=== PATIENT | male | born 1965 | race Caucasian/White ===

== ENCOUNTER 2020-09-01 11:42 | Outpatient (REF) | payer MEDICARE, MEDICAID, SELFPAY ==
[2020-09-01 14:15] LABS: MANUAL DIFF FLAG NO
[2020-09-01 14:20] LABS: Basophils Percent Auto 0.4 % (0-2); Eosinophils Absolute Auto 0.1 X10*3/uL (0.0-0.4); Hematocrit 40.7 % (42-52); Hemoglobin 13.3 g/dl (14.0-18.0); Imm Gran Abs Auto 0.01 X10*3/uL (0.00-0.03); Imm Gran Pct Auto 0.2 % (0.0-0.4); Lymphocytes Percent Auto 22.4 % (20-40); Mean Corpuscular HGB Conc 32.7 g/dl (31.0-36.0); Mean Corpuscular Hemoglobin 28.5 pg (27.0-33.0); Mean Corpuscular Volume 87.3 fL (80-98); Mean Platelet Volume 9.3 fL (9.4-12.4); Monocytes Absolute Auto 0.5 X10*3/uL (0.1-1.2); Monocytes Percent Auto 11.1 % (2-11); Neutrophils Absolute Auto 2.9 X10*3/uL (2.0-8.3); Neutrophils Percent Auto 63.9 % (45-73); Platelet Count 228 X10*3/uL (160-400); Red Blood Count 4.66 X10*6/uL (4.60-5.80); Red Cell Distribution Width 12.5 % (11.0-16.0); White Blood Count 4.5 X10*3/uL (4.8-10.8)
[2020-09-01 14:39] LABS: Alanine Aminotransferase 28 U/L (0-40); Albumin Level 4.4 g/dL (3.5-5.0); Alkaline Phosphatase 90 U/L (39-117); Anion Gap 12 (12-20); Aspartate Amino Transferase 19 U/L (5-37); Bilirubin Total 0.4 mg/dL (0.0-1.0); Blood Urea Nitrogen 18 mg/dL (9-16); Calcium 8.9 mg/dL (8.4-10.2); Carbon Dioxide 29 mmol/L (22-29); Chloride 105 mmol/L (96-108); Cholesterol 187 mg/dL; Estimated Glomerular Filt Rate > 60; Glucose Random 83 mg/dL (60-115); Potassium 4.5 mmol/l (3.3-5.1); Sodium 141 mmol/L (135-145); Total Protein 7.3 g/dL (6.5-8.0)
[2020-09-01 15:00] LABS: Prostate Specific Antigen Scr 0.95 ng/mL (<0.05-4.0)
== END 2020-09-01 11:43 | disposition home or self-care (01) ==
LOC: HO.10HDL 11:42
PROVIDERS: Visit Provider Internal Medicine
DX: K58.9 Irritable bowel syndrome, unspecified (principal); K57.90 Diverticulosis of intestine, part unspecified, without perforation or abscess without bleeding; R35.1 Nocturia; Z86.010 Personal history of colon polyps
CPT/HCPCS: 36415; 80053; 82465; 84153; 85025

== ENCOUNTER 2021-04-27 11:25 | Outpatient (REF) | payer MEDICARE, MEDICAID, SELFPAY ==
[2021-04-27 13:38] LABS: MANUAL DIFF FLAG NO
[2021-04-27 13:45] LABS: Basophils Percent Auto 0.4 % (0-2); Eosinophils Percent Auto 0.5 % (0-4); Hematocrit 39.1 % (42-52); Hemoglobin 13.1 g/dl (14.0-18.0); Imm Gran Abs Auto 0.02 X10*3/uL (0.00-0.03); Imm Gran Pct Auto 0.4 % (0.0-0.4); Lymphocytes Absolute Auto 0.8 X10*3/uL (1.2-4.9); Lymphocytes Percent Auto 14.8 % (20-40); Mean Corpuscular HGB Conc 33.5 g/dl (31.0-36.0); Mean Corpuscular Volume 86.7 fL (80-98); Mean Platelet Volume 9.3 fL (9.4-12.4); Monocytes Absolute Auto 0.5 X10*3/uL (0.1-1.2); Monocytes Percent Auto 9.2 % (2-11); Neutrophils Absolute Auto 4.3 X10*3/uL (2.0-8.3); Neutrophils Percent Auto 74.7 % (45-73); Platelet Count 194 X10*3/uL (160-400); Red Blood Count 4.51 X10*6/uL (4.60-5.80); Red Cell Distribution Width 12.5 % (11.0-16.0); White Blood Count 5.7 X10*3/uL (4.8-10.8)
[2021-04-27 14:08] LABS: Anion Gap 11 (12-20); Blood Urea Nitrogen 11 mg/dL (9-16); Calcium 9.8 mg/dL (8.4-10.2); Carbon Dioxide 30 mmol/L (22-29); Chloride 105 mmol/L (96-108); Estimated Glomerular Filt Rate > 60; Glucose Random 78 mg/dL (60-115); Iron 83 mcg/dL (45-160); Percent Iron Saturation 38 % (15-50); Potassium 4.4 mmol/L (3.3-5.1); Sodium 142 mmol/L (135-145); Total Iron Binding Capacity 216 mcg/dL (228-428); Unsaturated Iron Binding 133 ug/dL
== END 2021-04-27 11:26 | disposition home or self-care (01) ==
LOC: HO.10HDL 11:25
PROVIDERS: Visit Provider Internal Medicine
DX: D64.9 Anemia, unspecified (principal); K58.9 Irritable bowel syndrome, unspecified; K57.92 Diverticulitis of intestine, part unspecified, without perforation or abscess without bleeding
CPT/HCPCS: 36415; 80048; 83540; 85025

== ENCOUNTER 2021-11-09 10:10 | Outpatient (REF) | payer MEDICARE, MEDICAID, SELFPAY ==
[2021-11-09 10:35] LABS: MANUAL DIFF FLAG NO
[2021-11-09 10:49] LABS: Basophils Percent Auto 0.2 % (0-2); Eosinophils Absolute Auto 0.1 X10*3/uL (0.0-0.4); Hematocrit 41.7 % (42.0-52.0); Hemoglobin 13.8 g/dl (14.0-18.0); Imm Gran Abs Auto 0.01 X10*3/uL (0.00-0.03); Imm Gran Pct Auto 0.2 % (0.0-0.4); Lymphocytes Percent Auto 22.4 % (20-40); Mean Corpuscular HGB Conc 33.1 g/dl (31.0-36.0); Mean Corpuscular Hemoglobin 29.2 pg (27.0-33.0); Mean Corpuscular Volume 88.2 fL (80.0-98.0); Mean Platelet Volume 9.1 fL (9.4-12.4); Monocytes Absolute Auto 0.4 X10*3/uL (0.1-1.2); Monocytes Percent Auto 9.1 % (2-11); Neutrophils Percent Auto 66.1 % (45-73); Platelet Count 180 X10*3/uL (160-400); Red Blood Count 4.73 X10*6/uL (4.60-5.80); Red Cell Distribution Width 12.3 % (11.0-16.0); White Blood Count 4.6 X10*3/uL (4.8-10.8)
[2021-11-09 11:21] LABS: Alanine Aminotransferase 21 U/L (0-40); Albumin Level 4.2 g/dL (3.5-5.0); Alkaline Phosphatase 74 U/L (39-117); Anion Gap 11 (12-20); Aspartate Amino Transferase 17 U/L (5-37); Bilirubin Total 0.6 mg/dL (0.0-1.0); Blood Urea Nitrogen 18 mg/dL (9-16); C Reactive Protein 0.18 mg/dL (< or = 0.50); Calcium 9.6 mg/dL (8.4-10.2); Carbon Dioxide 32 mmol/L (22-29); Chloride 104 mmol/L (96-108); Estimated Glomerular Filt Rate > 60; Glucose Random 115 mg/dL (60-115); Potassium 4.7 mmol/L (3.3-5.1); Sodium 142 mmol/L (135-145); Total Protein 7.1 g/dL (6.5-8.0)
[2021-11-09 11:45] LABS: Insulin 22 uU/mL (2-29)
== END 2021-11-09 10:11 | disposition home or self-care (01) ==
LOC: HO.LAB 10:10
PROVIDERS: PCP Internal Medicine; Visit Provider Internal Medicine
DX: R55 Syncope and collapse (principal); K57.90 Diverticulosis of intestine, part unspecified, without perforation or abscess without bleeding
CPT/HCPCS: 36415; 80053; 82550; 83525; 85025; 86140

== ENCOUNTER 2021-12-28 10:46 | Emergency (ER) | payer MEDICARE, MEDICAID, SELFPAY ==
[2021-12-28 10:52] VITALS: BP 150/90; PULSE 102; O2SAT 100
[2021-12-28 11:14] VITALS: BP 129/79; PULSE 95; RESP 18; TEMP 36.2; O2SAT 95; BMI 20.8
[2021-12-28 11:48] LABS: COVID-19 Test Positive (Negative)
[2021-12-28 11:56] LABS: Influenza A Negative (Negative); Influenza B2 Negative (Negative)
--- NOTE | 2021-12-28 15:41 | ED.GENADULT ---
HPI - General Adult General Chief complaint: General Medical Stated complaint: MAUSEA,VOMITING,DIARRHEA Time Seen by Provider: 12/28/21 15:41 Source: patient Mode of arrival: ambulatory Limitations: no limitations History of Present Illness HPI narrative: 56 y/o male with history of intellectual disability presents to the ER with 1 week of diffuse body aches, loose stools and headaches. He denies any abdominal pain. He has decreased appetite and has not been feeling well in general. He denies any URI symptoms including cough, sore throat, nasal congestion. No know sick contacts. No vomiting, no blood in his stool. He is vaccinated for COVID last year but not boosted. MD complaint: body aches and diarrhea Onset (ago): week(s) (1) Location: abdomen Radiation: non-radiation Severity: mild Quality: aching Pain Consistency: intermittent Relieving factors: none Exacerbating factors: none Associated symptoms: loss of appetite and malaise Treatments prior to arrival: none Related Data Allergies Allergy/AdvReac Type Severity Reaction Status Date / Time No Known Allergies Allergy Verified 12/28/21 11:13 Review of Systems Review of Systems: Constitutional: + Fever, No Chills ENT/Mouth: No sore throat, No Rhinorrhea, No Swallowing Difficulty Cardiovascular: No Chest Pain, No SOB, No Orthopnea, No Edema Respiratory: No Cough, No Sputum, No Wheezing, No dyspnea Gastrointestinal: + Nausea, No Vomiting, + Diarrhea, No abdominal Pain, No Hematochezia, No Melena, +Poor appetite Genitourinary: No Dysuria, No Urinary Frequency, No Hematuria Musculoskeletal: No joint pain, No Myalgias Skin: No Skin Lesions, No rash Neuro: No Weakness, No Numbness, No Dizziness, + Headache Heme/Lymph: No Bruising, No Lymphadenopathy Endocrine: No Polyuria, No Polydipsia PMFSH Social History Social History Advance Directives: No Advance Directives Information Provided: No Physical Exam ED Vital Signs: Vital Signs - 24 hr 12/28/21 11:14 Temperature 97.2 F Pulse Rate 95 Respiratory Rate 18 Blood Pressure 129/79 Pulse Oximetry 95 BMI result Body Mass Index 20.8 Appearance: Alert. Oriented X3. No acute distress. Eyes: Pupils equal, round and reactive to light. ENT: Pharynx normal. Neck: Normal inspection. Neck supple. CVS: Normal heart rate and rhythm. Pulses normal. Respiratory: No respiratory distress. Breath sounds normal. Abdomen: Soft and nontender. hyperactive +BS x4 Skin: Skin warm and dry. Normal skin color. Normal skin turgor. No rashes. Extremities: No lower extremity edema. Neuro: Oriented X 3. No motor deficit. No sensory deficit. Steady gait. Slow to respond at times. Course Course Course Narrative: 56 y/o male with intellectual disability and irritable bowel syndrome presents to the ER with 1 week of feeling unwell - diarrhea for 4 days. Two episodes today, non-bloody. No abdominal pain, nontender and soft on examination. VS normal. He was found to be COVID positive. He has no respiratory complaints. Vaccinated but not boosted. Spoke with a program employee Niesha who was updated on his COVID positive status and plan for d/c home. He took the ambulance here with no ride home, will attempt WC van. Medical Decision Making Lab Data Labs: Lab Results 12/28/21 12/28/21 Range/Units 11:19 11:19 COVID-19 ([facility]IRA) Positive A (Negative) COVID-19 Clin Com See Note Influenza Type A ([facility]ON) Negative (Negative) Influenza Type B ([facility]ON) Negative (Negative) Influenza A & B Note See Note Critical Care Time Critical Care Time Critical Care Time: No Discharge Plan Discharge Clinical Impression: COVID-19 Patient Disposition: Home, Self-Care Instructions: Covid-19 Viral Syndrome and Novel Coronavirus (ED) Hey/Ath Additional Instructions: You were found to be COVID-19 POSITIVE today. Your exam and oxygen levels were normal. Rest. Drink plenty of fluids. Do not go out in public while you are not feeling well. Take over the counter Imodium and/or Pepto Bismol as needed for upset stomach adn diarrhea. Take over the counter cold/flu medications as needed for your symptoms. Take Tylenol and/or Motrin as needed for fevers and body aches. Follow up with your doctor as needed. If you develop new or worsening symptoms call 911 or come back to the ER for further evaluation.
--- NOTE | 2021-12-28 23:30 | PC.NURSE ---
Due to transportation confusion, this RN called and spoke to pt and pt stated that he called a friend for a ride while awaiting ambulance black pickler. pt stated he arrived home safely. provider and charge nurse aware.
== END 2021-12-28 17:39 | disposition home or self-care (01) ==
LOC: HO.ED 16:02
PROVIDERS: Emergency Provider Emergency Medicine; PCP Internal Medicine
DX: U07.1 COVID-19 (principal); M79.10 Myalgia, unspecified site; R51.9 Headache, unspecified
CPT/HCPCS: 87502; 87635; 99283

== ENCOUNTER 2022-01-27 15:14 | Outpatient (REF) | payer MEDICARE, MEDICAID, SELFPAY ==
[2022-01-27 15:36] LABS: MANUAL DIFF FLAG NO
[2022-01-27 15:45] LABS: Basophils Percent Auto 0.5 % (0-2); Eosinophils Absolute Auto 0.1 X10*3/uL (0.0-0.4); Eosinophils Percent Auto 1.5 % (0-4); Hematocrit 36.1 % (42.0-52.0); Lymphocytes Percent Auto 24.4 % (20-40); Mean Corpuscular HGB Conc 33.2 g/dl (31.0-36.0); Mean Corpuscular Hemoglobin 29.3 pg (27.0-33.0); Mean Platelet Volume 8.9 fL (9.4-12.4); Monocytes Absolute Auto 0.4 X10*3/uL (0.1-1.2); Neutrophils Absolute Auto 2.5 x10*3/uL (2.0-8.3); Neutrophils Percent Auto 64.6 % (45-73); Platelet Count 179 X10*3/uL (160-400); Red Cell Distribution Width 13.2 % (11.0-16.0); White Blood Count 3.9 X10*3/uL (4.8-10.8)
[2022-01-27 16:17] LABS: Alanine Aminotransferase 14 U/L (0-40); Alkaline Phosphatase 66 U/L (39-117); Aspartate Amino Transferase 13 U/L (5-37); Bilirubin Direct 0.3 mg/dL (0.0-0.5); Bilirubin Total 0.6 mg/dL (0.0-1.0); C Reactive Protein 0.08 mg/dL (< or = 0.50)
[2022-01-27 16:24] LABS: Erythrocyte Sedimentation Rate 6 MM/HR (0-15)
[2022-01-29 14:22] LABS: Immunoglobulin A 483 mg/dL (47-310)
[2022-02-02 19:21] LABS: Gliadin Deamidated IgA Ab <1.0 U/mL; Gliadin Deamidated IgG Ab <1.0 U/mL; Transglutaminase Ab IgG <1.0 U/mL; Transglutaminase IgA <1.0 U/mL
[2022-02-03 13:07] LABS: Endomysial IgA Antibody Negative (Negative)
== END 2022-01-27 15:15 | disposition home or self-care (01) ==
LOC: HO.LAB 15:14
PROVIDERS: PCP Internal Medicine; Visit Provider Internal Medicine
DX: K52.9 Noninfective gastroenteritis and colitis, unspecified (principal)
CPT/HCPCS: 36415; 80076; 82784; 85025; 85652; 86140; 86231; 86258; 86364

== ENCOUNTER 2022-02-12 13:59 | Emergency (ER) | payer MEDICARE, MEDICAID, SELFPAY ==
--- NOTE | ~2022-02-12 | CT_ITS ---
EXAMINATION: CT OF THE HEAD WITHOUT CONTRAST CLINICAL INFORMATION: Dizziness COMPARISON: None. TECHNIQUE: Noncontrast CT scan of the head was obtained from the base of the skull to the vertex. This CT examination was performed using dose optimization techniques as appropriate, variously including the following: *Automated exposure control *Adjustment of mA and/or kV according to patient size (this includes techniques or standardized protocols for targeted exams where dose is matched to indication/reason for exam; i.e. extremities or head) *Use of iterative reconstruction technique DLP: 768 mGy-cm FINDINGS: The ventricles and cisterns are normal in size, shape and configuration. There are no extra-axial surface collections or evidence of hemorrhage. Midline structures are central. The martinez/white differentiation is maintained. The orbits appear normal bilaterally. The paranasal sinuses are clear. No fractures are seen. CT/CT head/brain wo con IMPRESSION: Unremarkable examination. EXAMINATION: CHEST 2 VIEWS CLINICAL INFORMATION: Dizziness COMPARISON: None. TECHNIQUE: PA and lateral views of the chest were obtained. FINDINGS: No significant abnormality is noted involving the heart, lungs, mediastinum, bony thorax or soft tissues. IMPRESSION: Unremarkable examination.
[2022-02-12 14:04] VITALS: BP 125/75; PULSE 87; RESP 19; TEMP 36.6; O2SAT 98; BMI 20.6
--- NOTE | 2022-02-12 17:08 | ECG_ITS ---
Test Reason : DIZZINESS Blood Pressure : / mmHG Vent. Rate : 063 BPM Atrial Rate : 063 BPM P-R Int : 168 ms QRS Dur : 154 ms QT Int : 464 ms P-R-T Axes : 073 -44 061 degrees QTc Int : 474 ms Sinus rhythm with occasional Premature ventricular complexes Left axis deviation Left bundle branch block Abnormal ECG No previous ECGs available Referred By: Madison Milton Electronically Signed By:Tevin Arcos
--- NOTE | 2022-02-12 17:16 | ED.DIZZY ---
HPI - Dizziness General Chief Complaint: Dizziness Stated Complaint: dizziness Time Seen by Provider: 02/12/22 16:53 Source: patient Mode of arrival: ambulatory Limitations: no limitations History of Present Illness HPI Narrative: 56-year-old male with a history of intellectual disability, ibs who does live alone but is here with a community health planning director with reports of dizziness for multiple weeks. Patient tells me that he had COVID December 28. At that time he did have some vomiting and diarrhea. Vomiting and diarrhea did seem to last for several weeks and the patient lost approximately 12 lb during this time. The symptoms are now improved but he has had some dizziness since COVID that has lingered. He describes the dizziness as feeling like the room is spinning. It occurs at rest but it is worsened if he moves around. He has no associated nausea, vomiting, diarrhea, shortness of breath, chest pain, fever. No ear pain. He was seen at urgent care on and prescribed meclizine. He has taken 3 doses of meclizine since with continued symptoms. He did leave a message with his primary care doctor yesterday and is waiting for a call back to be seen in the office. He has been out of work for the last 2 weeks due to the dizziness. Has had 12lb weight loss since December Related Data Allergies Allergy/AdvReac Type Severity Reaction Status Date / Time No Known Allergies Allergy Verified 12/28/21 11:13 Review of Systems Review of Systems: Yes all other systems are reviewed and are negative Constitutional: Constitutional: Reports no additional constitutional complaints, Denies body ache(s), Denies chills, Denies fever(s), Denies headache(s) and Denies weakness Eyes: Eyes: Reports no additional eye complaints and Denies change in vision ENT: Reports system reviewed and no additional complaints, except as documented, Reports dizziness, Denies headache(s), Denies nasal congestion, Denies nasal discharge and Denies neck pain Cardiovascular: Cardiovascular: Reports no additional cardiovascular complaints, Denies chest pain, Denies leg edema and Denies dyspnea Respiratory: Respiratory: Reports no additional respiratory complaints, Denies cough and Denies dyspnea Gastrointestinal: Gastrointestinal: Reports no additional gastrointestinal complaints, Denies abdominal pain, Denies diarrhea, Denies nausea and Denies vomiting Genitourinary: Genitourinary: Denies urinary incontinence Musculoskeletal: Musculoskeletal: Reports no additional musculoskeletal complaints, Denies back pain, Denies arthralgias, Denies joint swelling, Denies neck pain, Denies numbness and Denies tingling Integumentary/Breasts: Skin/Breast: Reports system reviewed and no additional complaints, except as docu and Denies rash Neurologic: Reports system reviewed and no additional complaints, except as documented, Denies Abnormal speech present, Reports dizziness, Denies headache(s), Denies numbness, Denies tingling and Denies weakness PMFSH Past Medical History Attestation statement: The following information was validated with the patient. Source: old records reviewed and nursing notes reviewed Social History Social History Patient Tobacco Use Status: Never used Tobacco Use of substances other than those prescribed or required for medical reasons: No Advance Directives: No Advance Directives Information Provided: No Physical Exam Vital Signs: Vital Signs: Last Vital Signs Temp 98 F 02/12/22 14:04 Pulse 69 02/12/22 17:56 Resp 18 02/12/22 17:56 BP 124/76 02/12/22 17:56 Pulse Ox 99 02/12/22 17:56 O2 Del Method 02/12/22 17:56 BMI result Body Mass Index 20.6 Const: General: cooperative, healthy appearing, comfortable and no acute distress Orientation/consciousness: patient oriented x3 Limitations: no limitations HEENT: Head: Yes normal to inspection Ears: hearing grossly normal bilaterally and TM's normal bilaterally General nose exam: Normal external nose present Face and sinus: Yes normal facial exam Mouth: Normal oral and palatal mucosa present Throat: Yes posterior oropharynx normal Eyes: General: appearance normal, both eyes and all related structures Pupils: Equal, round and reactive pupils present Neck: Neck: Yes normal visual inspection, Yes full ROM and Yes no lymphadenopathy Chest: Chest palpation & inspection: normal inspection of the chest Resp: Effort & Inspection: normal respiratory effort Auscultation: clear to auscultation bilaterally Cardio: Rate: regular rate Rhythm: regular rhythm Peripheral pulses: Peripheral pulses 2+ throughout GI: Inspection: Yes normal to inspection Palpation (GI): Soft to palpation and nontender Auscultation: normal bowel sounds Back/Spine/Pelvis: Thoracic/Lumbar Spine: thoracic and lumbar spine normal to inspection Skin: General skin exam: no rashes or lesions noted Neuro: General: patient oriented x3, no focal motor deficits and normal sensation to monofilament Cranial nerves: Yes CN's II-XII intact bilaterally, Yes Equal, round and reactive pupils present, Yes Bilaterally intact EOM present, Yes Nystagmus not present, Yes Normal facial strength present and Yes Midline tongue present Cognition (Neuro): normal cognition Speech: No Abnormal speech present Gait exam (Neuro): Normal gait present Motor exam (neuro): 5/5 motor strength present throughout Sensory Exam: Normal double simultaneous stimulation for sensation Coordination: [id number] test normal, [id number] test normal and tandem gait normal Extrem: General: Yes normal to inspection Course Course Course Narrative: 1745-blood pressure systolic 118 to 102 with position changes. Will give 1 L normal saline Reevaluation(s) Reevaluation #1: Imaging is unremarkable. Labs show no acute finding. The patient's EKG shows left bundle-branch block. No previous available for comparison. Troponin is negative. No chest pain or shortness of breath. Patient feels improved after receiving 1 L of normal saline. Recommend that he follow up outpatient with his primary care doctor. Reviewed worrisome signs and symptoms of when to return to the emergency department. Comfortable discharge home. Time: 19:00 MDM - Dizziness MDM Narrative Medical decision making narrative: 56-year-old male with a history of IBS, intellectual disability here with reports of dizziness over the last 6 weeks after being diagnosed with COVID. His COVID symptoms of vomiting and diarrhea seem to be improved but his dizziness has been persistent and he has had a 12 lb weight loss. Patient has had increasing dizziness last 2 weeks unrelieved with meclizine. The dizziness has kept him from working. His neuro exam is normal. His vitals are stable. Will check labs, CT head, EKG, UA, orthostatic vital signs -low concern for ACS with symptoms greater than 2 weeks with no chest pain and a negative troponin. There is a left bundle branch block noted on EKG but no previous to compare this to. May or may not be new. Low concern for CVA or CAH with symptoms for 2 weeks with a negative head CT. Considered PE but negative D-dimer and no clinical findings concerning for DVT with no hypoxia, no tachypnea, no tachycardia. Differential Diagnosis Differential diagnosis: Likely benign paroxysmal positional vertigo, orthostatic hypotension and cerebrovascular accident Medical Records Attestation: I reviewed the patient's medical records. Lab Data Attestation: I reviewed the patient's lab results. Result diagrams: 02/12/22 17:50 02/12/22 17:50 Labs: Lab Results 02/12/22 02/12/22 02/12/22 Range/Units 17:50 17:50 17:50 WBC 5.4 (4.8-10.8) X10*3/uL RBC 4.47 L (4.60-5.80) X10*6/uL Hgb 13.1 L (14.0-18.0) g/dl Hct 38.6 L (42.0-52.0) % MCV 86.4 (80.0-98.0) fL MCH 29.3 (27.0-33.0) pg MCHC 33.9 (31.0-36.0) g/dl RDW 12.9 (11.0-16.0) % Plt Count 186 (160-400) X10*3/uL MPV 8.7 L (9.4-12.4) fL Immature Gran % (Auto) 0.4 (0.0-0.4) % Neut % (Auto) 68.8 (45-73) % Lymph % (Auto) 20.7 (20-40) % [place] % (Auto) 8.8 (2-11) % Eos % (Auto) 0.9 (0-4) % Baso % (Auto) 0.4 (0-2) % Lymph # (Auto) 1.1 L (1.2-4.9) X10*3/uL [place] # (Auto) 0.5 (0.1-1.2) X10*3/uL Eos # (Auto) 0.1 (0.0-0.4) X10*3/uL Baso # (Auto) 0.0 (0.0-0.2) X10*3/uL Abs Immat Gran (auto) 0.02 (0.00-0.03) X10*3/uL Absolute Neuts (auto) 3.7 (2.0-8.3) x10*3/uL Absolute Nucleated RBC 0.000 (0.0-0.012) X10*3/uL Nucleated RBC % (auto) 0.0 (0.0-0.2) /100WBC PT (9.9-13.0) SEC INR (0.9-1.1) D-Dimer High Sensitivty NG/ML Sodium 143 (135-145) mmol/L Potassium 4.9 (3.3-5.1) mmol/L Chloride 107 (96-108) mmol/L Carbon Dioxide 26 (22-29) mmol/L Anion Gap 15 (12-20) BUN 15 (9-16) mg/dL Creatinine 1.23 (0.5-1.4) mg/dL Estim Creat Clear Calc 61.9 Estimated GFR > 60 Random Glucose 92 (60-115) mg/dL Calcium 9.6 (8.4-10.2) mg/dL Magnesium 1.8 (1.6-2.6) mg/dL Total Bilirubin 0.7 (0.0-1.0) mg/dL Direct Bilirubin 0.3 (0.0-0.5) mg/dL AST 16 (5-37) U/L ALT 13 (0-40) U/L Alkaline Phosphatase 72 (39-117) U/L Troponin I High Sens < 3.5 (<3.5-35.0) ng/L Total Protein 7.4 (6.5-8.0) g/dL Albumin 4.2 (3.5-5.0) g/dL Urine Color Urine Appearance Urine pH (5.0-8.0) Ur Specific [place] (1.005-1.025) Urine Protein (NEG-TRACE) MG/DL Urine Glucose (UA) (NEG) MG/DL Urine Ketones (NEG) MG/DL Urine Blood (NEG) Urine Nitrite (NEG) Ur Leukocyte Esterase (NEG) 02/12/22 02/12/22 Range/Units 17:50 18:57 WBC (4.8-10.8) X10*3/uL RBC (4.60-5.80) X10*6/uL Hgb (14.0-18.0) g/dl Hct (42.0-52.0) % MCV (80.0-98.0) fL MCH (27.0-33.0) pg MCHC (31.0-36.0) g/dl RDW (11.0-16.0) % Plt Count (160-400) X10*3/uL MPV (9.4-12.4) fL Immature Gran % (Auto) (0.0-0.4) % Neut % (Auto) (45-73) % Lymph % (Auto) (20-40) % [place] % (Auto) (2-11) % Eos % (Auto) (0-4) % Baso % (Auto) (0-2) % Lymph # (Auto) (1.2-4.9) X10*3/uL [place] # (Auto) (0.1-1.2) X10*3/uL Eos # (Auto) (0.0-0.4) X10*3/uL Baso # (Auto) (0.0-0.2) X10*3/uL Abs Immat Gran (auto) (0.00-0.03) X10*3/uL Absolute Neuts (auto) (2.0-8.3) x10*3/uL Absolute Nucleated RBC (0.0-0.012) X10*3/uL Nucleated RBC % (auto) (0.0-0.2) /100WBC PT 12.6 (9.9-13.0) SEC INR 1.1 (0.9-1.1) D-Dimer High Sensitivty 163 NG/ML Sodium (135-145) mmol/L Potassium (3.3-5.1) mmol/L Chloride (96-108) mmol/L Carbon Dioxide (22-29) mmol/L Anion Gap (12-20) BUN (9-16) mg/dL Creatinine (0.5-1.4) mg/dL Estim Creat Clear Calc Estimated GFR Random Glucose (60-115) mg/dL Calcium (8.4-10.2) mg/dL Magnesium (1.6-2.6) mg/dL Total Bilirubin (0.0-1.0) mg/dL Direct Bilirubin (0.0-0.5) mg/dL AST (5-37) U/L ALT (0-40) U/L Alkaline Phosphatase (39-117) U/L Troponin I High Sens (<3.5-35.0) ng/L Total Protein (6.5-8.0) g/dL Albumin (3.5-5.0) g/dL Urine Color YELLOW Urine Appearance CLEAR Urine pH 5.5 (5.0-8.0) Ur Specific [place] 1.025 (1.005-1.025) Urine Protein NEG (NEG-TRACE) MG/DL Urine Glucose (UA) NEG (NEG) MG/DL Urine Ketones NEG (NEG) MG/DL Urine Blood NEG (NEG) Urine Nitrite NEG (NEG) Ur Leukocyte Esterase NEG (NEG) Imaging Data Chest x-ray: Attestation: I personally reviewed and interpreted this imaging study as follows: Radiologist's impression: EXAMINATION: CHEST 2 VIEWS ? CLINICAL INFORMATION: Dizziness ? COMPARISON: None. ? TECHNIQUE: PA and lateral views of the chest were obtained. ? FINDINGS: No significant abnormality is noted involving the heart, lungs, mediastinum, bony thorax or soft tissues. ? IMPRESSION: Unremarkable examination. CT scan - head: Attestation: I personally reviewed and interpreted this imaging study as follows: Radiologist's impression: [place] [id number] CT Scan Report Signed Patient: Stevan Andrade MR#: [id number] : 1965 Acct:[id number] Age/Sex: 56 / M ADM Date: 02/12/22 Loc: HO.ED Attending Dr: Ordering Physician: Madison Milton NP Date of Service: 02/12/22 Procedure(s): CT head/brain wo con Accession Number(s): [id number] cc: Madison Milton NP~ EXAMINATION: CT OF THE HEAD WITHOUT CONTRAST CLINICAL INFORMATION: Dizziness COMPARISON: None. TECHNIQUE: Noncontrast CT scan of the head was obtained from the base of the skull to the vertex. This CT examination was performed using dose optimization techniques as appropriate, variously including the following: *Automated exposure control *Adjustment of mA and/or kV according to patient size (this includes techniques or standardized protocols for targeted exams where dose is matched to indication/reason for exam; i.e. extremities or head) *Use of iterative reconstruction technique DLP: 768 ? mGy-cm FINDINGS: The ventricles and cisterns are normal in size, shape and configuration. There are no extra-axial surface collections or evidence of hemorrhage. Midline structures are central. The martinez/white differentiation is maintained. The orbits appear normal bilaterally. The paranasal sinuses are clear. No fractures are seen. ECG Data Attestation: I personally reviewed and interpreted this ECG as follows: ECG interpretation date: 02/12/22 ECG interpretation time: 17:26 Interpretation: Sinus rhythm with occasional PVCs, left bundle branch block, rate is 63, normal NH, QTC 474. No previous EKGs for comparison Discharge Plan Discharge Clinical Impression: Orthostatic hypotension Patient Disposition: Home, Self-Care Instructions: Dizziness (ED) Additional Instructions: Imaging and lab work are all reassuring His blood pressure did lower with position changes. He received fluids while he was here in the emergency department. Make sure you are drinking lots of fluids at home. Change positions slowly. Follow up with the primary care doctor next week. Referrals: Mitul Mares MD [Primary Care Provider] - 1 week Interventions: ED Discharge Assessment Last Done: 02/12/22 19:49 Discharge Date/Time: 02/12/22 19:50
[2022-02-12 17:38] VITALS: BP 118/72; PULSE 66
[2022-02-12 17:40] VITALS: BP 124/76; PULSE 69
[2022-02-12 17:41] VITALS: BP 101/74; PULSE 75
[2022-02-12] MEDS: 0.9 % Sodium Chloride 1,000 ML 999 ML IV (17:51)
--- NOTE | 2022-02-12 17:55 | PC.NURSE ---
pt alert and oriented, skin pwd, respirations even and unlabored, pt reports feeling dizzy/spinning in circles for the last couple of weeks, no neuro deficits noticed at this time
[2022-02-12 17:56] VITALS: BP 124/76; PULSE 69; RESP 18; O2SAT 99
[2022-02-12 17:57] LABS: MANUAL DIFF FLAG NO
[2022-02-12 17:58] LABS: Basophils Percent Auto 0.4 % (0-2); Eosinophils Absolute Auto 0.1 X10*3/uL (0.0-0.4); Eosinophils Percent Auto 0.9 % (0-4); Hematocrit 38.6 % (42.0-52.0); Hemoglobin 13.1 g/dl (14.0-18.0); Imm Gran Abs Auto 0.02 X10*3/uL (0.00-0.03); Imm Gran Pct Auto 0.4 % (0.0-0.4); Lymphocytes Absolute Auto 1.1 X10*3/uL (1.2-4.9); Lymphocytes Percent Auto 20.7 % (20-40); Mean Corpuscular HGB Conc 33.9 g/dl (31.0-36.0); Mean Corpuscular Hemoglobin 29.3 pg (27.0-33.0); Mean Corpuscular Volume 86.4 fL (80.0-98.0); Mean Platelet Volume 8.7 fL (9.4-12.4); Monocytes Absolute Auto 0.5 X10*3/uL (0.1-1.2); Monocytes Percent Auto 8.8 % (2-11); Neutrophils Absolute Auto 3.7 x10*3/uL (2.0-8.3); Neutrophils Percent Auto 68.8 % (45-73); Platelet Count 186 X10*3/uL (160-400); Red Blood Count 4.47 X10*6/uL (4.60-5.80); Red Cell Distribution Width 12.9 % (11.0-16.0); White Blood Count 5.4 X10*3/uL (4.8-10.8)
[2022-02-12 18:04] LABS: INTERNATIONAL NORM RATIO 1.1 (0.9-1.1); Prothrombin Time 12.6 SEC (9.9-13.0)
[2022-02-12 18:06] LABS: D Dimer High Sensitivity 163 NG/ML
[2022-02-12 18:17] LABS: Troponin-I High Sensitivity < 3.5 ng/L (<3.5-35.0)
[2022-02-12 18:30] LABS: Alanine Aminotransferase 13 U/L (0-40); Albumin Level 4.2 g/dL (3.5-5.0); Alkaline Phosphatase 72 U/L (39-117); Anion Gap 15 (12-20); Aspartate Amino Transferase 16 U/L (5-37); Bilirubin Direct 0.3 mg/dL (0.0-0.5); Bilirubin Total 0.7 mg/dL (0.0-1.0); Blood Urea Nitrogen 15 mg/dL (9-16); Calcium 9.6 mg/dL (8.4-10.2); Carbon Dioxide 26 mmol/L (22-29); Chloride 107 mmol/L (96-108); Creatinine Clr Calc Pharmacy 61.9; Estimated Glomerular Filt Rate > 60; Glucose Random 92 mg/dL (60-115); Magnesium 1.8 mg/dL (1.6-2.6); Potassium 4.9 mmol/L (3.3-5.1); Sodium 143 mmol/L (135-145); Total Protein 7.4 g/dL (6.5-8.0)
[2022-02-12 19:06] LABS: Appearance Urine CLEAR; Color Urine YELLOW; Glucose Urine UA NEG (NEG); Leukocyte Esterase Urine NEG (NEG); Nitrite Urine NEG (NEG); PH 5.5 (5.0-8.0); Specific Gravity - Urine 1.025 (1.005-1.025); Urine Blood NEG (NEG); Urine Ketones NEG (NEG); Urine Protein NEG (NEG-TRACE)
== END 2022-02-12 19:50 | disposition home or self-care (01) ==
PROVIDERS: Nurse Practitioner Family; Emergency Provider Emergency Medicine; PCP Internal Medicine
DX: I95.1 Orthostatic hypotension (principal); R42 Dizziness and giddiness; Z79.899 Other long term (current) drug therapy
CPT/HCPCS: 36415; 70450; 71046; 80048; 80076; 81003; 83735; 84484; 85025; 85379; 85610; 93005; 96365; 99284

== ENCOUNTER 2022-02-21 09:20 | Day surgery (SDC) | payer MEDICARE, MEDICAID, SELFPAY ==
--- NOTE | 2022-02-18 13:03 | HO.ANESPROP2 ---
Documented by User: Kaycee Reyes NP 02/18/22 13:27 HPI - Anesthesia Eval Consult details Narrative: 56yo M for Colonoscopy [facility] [place] [facility] 02/12/22 with dizziness, vomit, diarrhea, weight loss. No other assoc symptoms. EKG with LBBB, but no previous. PCP 02/15/22 - proceed with colo PMFSH Active Problems Active Problems: All Active Problems (Updated 02/15/22 @ 10:56 by Josy Burton RN) Intellectual disability (Acute) COVID-19 (Acute) Past Medical History Medical History History of COVID-19 Intellectual disability Renal calculi Surgical History Surgical History H/O colonoscopy Hx of cystoscopy Hx of lithotripsy Social History Social History Patient Tobacco Use Status: Never used Tobacco Are you DNR?: No Advance Directives: No Advance Directives Information Provided: Yes Recently lost weight without trying: No Nutrition Risks: No Nutritional Risk Meds Allergies Allergy/AdvReac Type Severity Reaction Status Date / Time No Known Allergies Allergy Verified 12/28/21 11:13 Home Medications Medication Instructions Recorded Confirmed Last Taken Type loperamide-simethicone 2 mg-125 mg 1 tab PO Q1H PRN Loose Stool 02/15/22 02/15/22 Unknown History tablet Exam Exam Date and Time: February 18, 2022 1303 Height,Weight and Vital Signs: Height 5 ft 11 in Weight 65.317 kg Pertinent Lab Results Pertinent Lab Results: Laboratory Tests 02/12/22 02/12/22 17:50 17:50 WBC 5.4 Hgb 13.1 L Hct 38.6 L Plt Count 186 Sodium 143 Potassium 4.9 Chloride 107 Carbon Dioxide 26 BUN 15 Creatinine 1.23 Narrative Narrative: EKG 01/2022 Vent. Rate : 063 BPM ? ? Atrial Rate : 063 BPM ?? P-R Int : 168 ms? QRS Dur : 154 ms ? ? QT Int : 464 ms ? ? ? P-R-T Axes : 073 -44 061 degrees ?? QTc Int : 474 ms ? Sinus rhythm with occasional Premature ventricular complexes Left axis deviation Left bundle branch block Abnormal ECG No previous ECGs available Assessment and Plan Assessment Anesthesia Assessment: Chart Reviewed Documented by User: Abeba Isaac MD 02/21/22 10:17 PMFSH Past Medical History Medical History History of COVID-19 Intellectual disability Renal calculi Surgical History Surgical History H/O colonoscopy Hx of cystoscopy Hx of lithotripsy History of Problems with Anesthesia: No Social History Social History Patient Tobacco Use Status: Never used Tobacco Are you DNR?: No Advance Directives: No Advance Directives Information Provided: Yes Recently lost weight without trying: No Nutrition Risks: No Nutritional Risk Meds Allergies Allergy/AdvReac Type Severity Reaction Status Date / Time No Known Allergies Allergy Verified 12/28/21 11:13 Home Medications Medication Instructions Recorded Confirmed Last Taken Type loperamide-simethicone 2 mg-125 mg 1 tab PO Q1H PRN Loose Stool 02/15/22 02/15/22 Unknown History tablet Exam Airway Mallampati Class: III (Small mouth) TM Dist: >3cm Neck ROM: Full Loose/Missing/Broken Teeth: No and Lower Heart: RRR Lungs: CTA Assessment and Plan Assessment Anesthesia Assessment: Anesthesia Plan Discussed Final Anesthetic Review History of Problems with Anesthesia: No NPO: Yes ASA Class: II Final Preanesthetic Review: Meds/Allgs Chart Reviewed, Consent Obtained/Reviewed and Anes Risks/Benef Reviewed Patient Risk: Low Procedure Risk: Low Anesthetic Plan Anesthetic Plan: MAC: Disposition: Standard PACU
[2022-02-21 09:50] VITALS: BP 123/72; PULSE 74; RESP 18; TEMP 36.6; O2SAT 98
[2022-02-21] MEDS: Lactated Ringers 1,000 ML 100 ML IVCONT (10:00)
--- NOTE | 2022-02-21 10:24 | PC.NURSE ---
BROTHER NADIA STATES HE AND SISTER YUVAL ARE LEGAL GUARDIANS. CONSENT RECEIVED OVER PHONE.
[2022-02-21 11:46] VITALS: BP 90/46; PULSE 56; RESP 16; TEMP 36.3; O2SAT 98
--- NOTE | 2022-02-21 11:50 | P.BOP_ITS ---
Brief Operative Note Date of Service: 02/21/22 Pre-op diagnosis: Screening, Diarrhea Post-op diagnosis: other (R/O microscopic colitis, Diverticulosis) Procedure: Colonoscopy to the cecum and TI with biopsies Surgeon: Tariq Sethi Anesthesia: MAC Was an International Marketing Coordinator used for this Procedure?: No Estimated blood loss (mL): 2.0 Pathology: other (A. Ascending colon B. Descending colon) Condition: stable Disposition: PACU
[2022-02-21 12:01] VITALS: BP 89/53; PULSE 62; RESP 17; O2SAT 96
[2022-02-21 12:13] VITALS: BP 106/59; PULSE 58; RESP 18; TEMP 36.3; O2SAT 97
--- NOTE | 2022-02-21 12:31 | OP_ITS ---
SURGEON: Tariq Sethi MD INDICATIONS: The patient presents for evaluation of personal history of tubular adenoma of the colon, colorectal cancer screening, and diarrhea. Full consent has been obtained from his brother, Ham, for this, including risks of bleeding and perforation. PREOPERATIVE DIAGNOSIS: POSTOPERATIVE DIAGNOSIS: PROCEDURE PERFORMED: Colonoscopy to cecum and terminal ileum with biopsies. ESTIMATED BLOOD LOSS: COMPLICATIONS: ANESTHESIA: Monitored anesthesia care. ASSISTANTS: SPECIMENS: PREOPERATIVE DIAGNOSES: Colorectal cancer screening, personal history of tubular adenoma of the colon, diarrhea. POSTOPERATIVE DIAGNOSES: Colorectal cancer screening, personal history of tubular adenoma of the colon, diarrhea, rule out microscopic colitis, mild sigmoid diverticulosis, small internal hemorrhoids. DESCRIPTION OF PROCEDURE: The patient was placed in the left lateral decubitus position. The digital rectal exam revealed no abnormalities. The Olympus video pediatric colonoscope was entered into the rectum and advanced easily to the cecum. Once in the cecum, I did identify normal-appearing cecal pouch with appendiceal orifice and a normal-appearing ileocecal valve. The terminal ileum was cannulated and appeared normal. The scope was withdrawn back in the colon. The entire cecum and ileocecal valve appeared normal. The scope was slowly withdrawn assessing all mucosal surfaces carefully. Preparation was excellent. I did not visualize any sign of polyps, colitis, nor angiodysplasia. Random biopsies were obtained in the ascending and descending colon to rule out microscopic colitis. There were occasional diverticula in the sigmoid colon. In the rectum, scope was retroflexed visualizing small internal hemorrhoids, but no other pathology. The rectal mucosa appeared normal. Scope was straightened and withdrawn from the patient. He tolerated the procedure well and was returned to recovery area in stable condition. IMPRESSION: 1. Rule out microscopic colitis. 2. Mild sigmoid diverticulosis. 3. Small internal hemorrhoids. PLAN: The results of the biopsies will be checked. I would recommend a repeat colonoscopy in 5 years for further surveillance. Tariq Sethi MD RMYahir/MODL / [id number]
== END 2022-02-21 12:44 | disposition home or self-care (01) ==
PROVIDERS: PCP Internal Medicine; Visit Provider Internal Medicine
PROC: 0DJD8ZZ Inspection of Lower Intestinal Tract, Via Natural or Artificial Opening Endoscopic (ICD-10-PCS; CPT 45378; principal; 2022-02-21 10:40)
DX: Z12.11 Encounter for screening for malignant neoplasm of colon (principal); Z86.010 Personal history of colon polyps; K57.30 Diverticulosis of large intestine without perforation or abscess without bleeding; K64.8 Other hemorrhoids; K52.9 Noninfective gastroenteritis and colitis, unspecified; F81.9 Developmental disorder of scholastic skills, unspecified; Z86.16 Personal history of COVID-19; Z87.442 Personal history of urinary calculi
CPT/HCPCS: G0105; 88305

== ENCOUNTER 2022-02-26 16:49 | Emergency (ER) | payer MEDICARE, MEDICAID, SELFPAY ==
[2022-02-26 17:05] VITALS: BP 121/70; PULSE 92; RESP 18; TEMP 36.9; O2SAT 96; BMI 19.8
[2022-02-26 20:55] LABS: MANUAL DIFF FLAG NO
[2022-02-26 21:02] LABS: Basophils Percent Auto 0.1 % (0-2); Eosinophils Percent Auto 0.2 % (0-4); Hematocrit 36.4 % (42.0-52.0); Hemoglobin 12.2 g/dl (14.0-18.0); Imm Gran Abs Auto 0.06 X10*3/uL (0.00-0.03); Imm Gran Pct Auto 0.5 % (0.0-0.4); Lymphocytes Percent Auto 9.3 % (20-40); Mean Corpuscular HGB Conc 33.5 g/dl (31.0-36.0); Mean Corpuscular Hemoglobin 29.2 pg (27.0-33.0); Mean Corpuscular Volume 87.1 fL (80.0-98.0); Mean Platelet Volume 8.6 fL (9.4-12.4); Monocytes Absolute Auto 0.9 X10*3/uL (0.1-1.2); Monocytes Percent Auto 7.6 % (2-11); Neutrophils Absolute Auto 9.2 x10*3/uL (2.0-8.3); Neutrophils Percent Auto 82.3 % (45-73); Platelet Count 215 X10*3/uL (160-400); Red Blood Count 4.18 X10*6/uL (4.60-5.80); Red Cell Distribution Width 12.9 % (11.0-16.0); White Blood Count 11.2 X10*3/uL (4.8-10.8)
[2022-02-26 21:15] LABS: Anion Gap 15 (12-20); Blood Urea Nitrogen 23 mg/dL (9-16); Calcium 9.3 mg/dL (8.4-10.2); Carbon Dioxide 26 mmol/L (22-29); Chloride 104 mmol/L (96-108); Creatinine Clr Calc Pharmacy 45.9; Estimated Glomerular Filt Rate 45; Glucose Random 110 mg/dL (60-115); Sodium 140 mmol/L (135-145)
--- NOTE | 2022-02-26 22:53 | ED.GENADULT ---
HPI - General Adult General Chief complaint: General Medical Stated complaint: infection on upper R thigh Time Seen by Provider: 02/26/22 17:56 Source: patient Mode of arrival: ambulatory Limitations: no limitations History of Present Illness HPI narrative: This is a 56-year-old male past medical history significant for intellectual disability presenting to the emergency department with Alvino caregiver, caregiver reports that patient had a scab to his right inner thigh, they think that patient scratch the scab, caregiver noted that there was yellow foul-smelling discharge mixed with blood coming from the area as well as redness, swelling, warmth. Patient has been reporting pain to the site. Patient is smiling appears to be in no acute distress, no complaints. According to caregiver patient has not had fevers or chills. Unable to obtain accurate review of systems due to patient's intellectual disability Onset (ago): day(s) (2) Related Data Home Medications Medication Instructions Recorded Confirmed loperamide-simethicone 2 mg-125 mg 1 tab PO Q1H PRN Loose Stool 02/15/22 02/15/22 tablet Previous Rx's Medication Instructions Recorded cephalexin 500 mg tablet 500 mg PO Q6H 10 days #40 tabs 02/26/22 doxycycline hyclate 100 mg capsule 100 mg PO BID 10 days #20 caps 02/26/22 Allergies Allergy/AdvReac Type Severity Reaction Status Date / Time No Known Allergies Allergy Verified 02/26/22 17:04 Review of Systems Review of Systems: Constitutional : No Weight loss, No Fever, No Chills, No Fatigue, No Malaise ENT/Mouth : No sore throat, No Rhinorrhea Eyes: No Eye Pain, No Swelling, No Redness Cardiovascular : No Chest Pain, No SOB, No Dyspnea on Exertion, No Orthopnea, No Edema, No Palpitations Respiratory : No Cough, No Sputum, No Wheezing Gastrointestinal : No Nausea, No Vomiting, No Diarrhea, No Constipation, No abdominal Pain, No Hematochezia, No Melena Genitourinary : No Dysuria, No Urinary Frequency, No Hematuria, Musculoskeletal : No joint pain, No Myalgias, No Joint Swelling Skin : + Skin Lesions, No rash Neuro : No Weakness, No Numbness, No Dizziness, No Headache All other systems reviewed and are negative Yes all other systems are reviewed and are negative PMFSH Past Medical History Attestation statement: The following information was validated with the patient. Source: old records reviewed and nursing notes reviewed Medical History History of COVID-19 Intellectual disability Renal calculi Surgical History H/O colonoscopy Hx of cystoscopy Hx of lithotripsy Social History Social History Patient Tobacco Use Status: Never used Tobacco Advance Directives: No Advance Directives Information Provided: Yes Physical Exam ED Vital Signs: Vital Signs - 24 hr 02/26/22 17:05 02/27/22 01:37 Temperature 98.4 F 98.2 F Pulse Rate 92 65 Respiratory Rate 18 20 Blood Pressure 121/70 114/62 Pulse Oximetry 96 99 Oxygen Delivery Method Room Air Room Air BMI result Body Mass Index 19.8 Vital signs stable Appearance: Alert.? Oriented X3.? No acute distress.? Head: Normocephalic, atraumatic, no step-offs or deformities Eyes: Pupils equal, round and reactive to light.? ENT: Pharynx normal.? Neck: Normal inspection.? Neck supple.? CVS: Normal heart rate and rhythm.? Pulses normal.? Respiratory: No respiratory distress.? Breath sounds normal.? Abdomen: Soft and nontender.? Skin: Skin warm and dry.? Normal skin color.? Normal skin turgor.?+ erythema and calor w/ scant purulence to the right inner thigh middle portion indurated, (image below) Extremities: No lower extremity edema.? No calf ttp. 5/5 strength to bilateral upper and lower extremities Neuro: Oriented X 3.? No motor deficit.? No sensory deficit. CN 2-12 intact Course Course Course Narrative: Discussed this case w/ Dr. Morin who agrees w/ po antibiotics and home. Reevaluation(s) Reevaluation #1: CBC with slight leukocytosis, and a baseline normocytic anemia. BUN and creatinine slightly elevated when compared to patient's baseline, likely secondary to dehydration he will be hydrated with IV fluids. Time: 22:59 Reevaluation #2: Bedside ultrasound was done and there is an abscess around 1 cm deep and measures about 3 cm x 3 cm. Time: 23:48 Reevaluation #3: I&D was done 8cc of purulence mixed with serosanguineous fluid were drained. Patient tolerated procedure well. Will give 1 time dose of Zosyn. Will repeat CMP to check BUN/CR Time: 23:49 Additional Reevaluation(s): Patient's CMP with improved BUN and creatinine. At this time patient will be discharged home on p.o. antibiotics. Educated patient and staff member at the bedside to return with new or worsening symptoms. At this time I feel comfortable with discharge. Procedures Abscess I/D Site: lower extremity (inner thigh ) Side (if applicable): right Local Anesthetic: lidocaine 1% Technique: incised with blade Amount of fluid expressed (mL): 8 Sent for culture/gram staining?: Yes Irrigation: Yes Packing used?: none Medical Decision Making MDM Narrative Medical decision making narrative: 2256 56-year-old male presents with a small abscess to the right inner thigh, with redness, warmth and swelling progressively worsening x2 days. Accompanied by his caregiver who provided the majority of the history. Physical examination significant for a draining/healing abscess to the right thigh with overlying erythema, calor and discomfort with palpation, indurated area noted to center. Likely an abscess that is self draining with overlying cellulitis. Will do a bedside ultrasound to assess for underlying purulence accumulation/abscess Plan at this time is to obtain basic labs. And do a bedside ultrasound VSS- patient not toxic appearing I do not suspect sepsis. Medical Records Medical records reviewed: Yes I reviewed the patient's medical records. Lab Data Lab results reviewed: Yes I reviewed the patient's lab results. Result diagrams: 02/26/22 20:51 02/27/22 01:00 Labs: Lab Results 02/26/22 02/26/22 02/27/22 Range/Units 20:51 20:51 01:00 WBC 11.2 H (4.8-10.8) X10*3/uL RBC 4.18 L (4.60-5.80) X10*6/uL Hgb 12.2 L (14.0-18.0) g/dl Hct 36.4 L (42.0-52.0) % MCV 87.1 (80.0-98.0) fL MCH 29.2 (27.0-33.0) pg MCHC 33.5 (31.0-36.0) g/dl RDW 12.9 (11.0-16.0) % Plt Count 215 (160-400) X10*3/uL MPV 8.6 L (9.4-12.4) fL Immature Gran % (Auto) 0.5 H (0.0-0.4) % Neut % (Auto) 82.3 H (45-73) % Lymph % (Auto) 9.3 L (20-40) % [place] % (Auto) 7.6 (2-11) % Eos % (Auto) 0.2 (0-4) % Baso % (Auto) 0.1 (0-2) % Lymph # (Auto) 1.0 L (1.2-4.9) X10*3/uL [place] # (Auto) 0.9 (0.1-1.2) X10*3/uL Eos # (Auto) 0.0 (0.0-0.4) X10*3/uL Baso # (Auto) 0.0 (0.0-0.2) X10*3/uL Abs Immat Gran (auto) 0.06 H (0.00-0.03) X10*3/uL Absolute Neuts (auto) 9.2 H (2.0-8.3) x10*3/uL Absolute Nucleated RBC 0.000 (0.0-0.012) X10*3/uL Nucleated RBC % (auto) 0.0 (0.0-0.2) /100WBC Sodium 140 140 (135-145) mmol/L Potassium 5.0 4.3 (3.3-5.1) mmol/L Chloride 104 106 (96-108) mmol/L Carbon Dioxide 26 29 (22-29) mmol/L Anion Gap 15 9 L (12-20) BUN 23 H D 21 H (9-16) mg/dL Creatinine 1.59 H 1.38 (0.5-1.4) mg/dL Estim Creat Clear Calc 45.9 52.9 Estimated GFR 45 53 Random Glucose 110 178 H D (60-115) mg/dL Calcium 9.3 8.5 D (8.4-10.2) mg/dL Total Bilirubin 0.6 (0.0-1.0) mg/dL AST 10 (5-37) U/L ALT 13 (0-40) U/L Alkaline Phosphatase 63 (39-117) U/L Total Protein 6.2 L (6.5-8.0) g/dL Albumin 3.7 (3.5-5.0) g/dL Critical Care Time Critical Care Time Critical Care Time: No Discharge Plan Discharge Clinical Impression: Cellulitis, Abscess Patient Disposition: Home, Self-Care Additional Instructions: Take your medications as prescribed. If you were prescribed antibiotics today, it is important that you take your medication to their entirety, do not skip any doses, do not finish them early. Follow-up with your primary care provider this week. Return to the emergency department with new or worsening symptoms. Such as fevers, chills, chest pain, shortness of breath, nausea, vomiting, dizziness, headache, vision changes, lethargy In case of emergency call 911 Prescriptions: New doxycycline hyclate 100 mg capsule 100 mg PO BID 10 Days Qty: 20 0RF cephalexin 500 mg tablet 500 mg PO Q6H 10 Days Qty: 40 0RF No Action loperamide-simethicone [Imodium Advanced] 2-125 mg Tablet 1 tab PO Q1H PRN (Reason: Loose Stool) Rx Instructions: do not exceed 4 tabs in 24 hrs Referrals: Mitul Mares MD [Primary Care Provider] - 2 days
[2022-02-26] MEDS: Diphth,Pertus(ACell),Tet Adult 0.5 ML SYRINGE IM (23:31)
[2022-02-26] MEDS: Lidocaine HCl 1 % MPF 5 ML VIAL SUBCUT (23:32)
[2022-02-26] MEDS: 0.9 % Sodium Chloride 1,000 ML 999 ML IV (23:33)
[2022-02-27 00:31] LABS: Cancel Lactic Acid Canceled
[2022-02-27] MEDS: Piperacillin Sodium/Tazobactam 3.375 GM in 0.9 % Sodium Chloride 50 ML IV (00:34)
[2022-02-27 01:37] VITALS: BP 114/62; PULSE 65; RESP 20; TEMP 36.8; O2SAT 99
[2022-02-27 01:41] LABS: Alanine Aminotransferase 13 U/L (0-40); Albumin Level 3.7 g/dL (3.5-5.0); Alkaline Phosphatase 63 U/L (39-117); Anion Gap 9 (12-20); Aspartate Amino Transferase 10 U/L (5-37); Bilirubin Total 0.6 mg/dL (0.0-1.0); Blood Urea Nitrogen 21 mg/dL (9-16); Calcium 8.5 mg/dL (8.4-10.2); Carbon Dioxide 29 mmol/L (22-29); Chloride 106 mmol/L (96-108); Creatinine Clr Calc Pharmacy 52.9; Estimated Glomerular Filt Rate 53; Glucose Random 178 mg/dL (60-115); Potassium 4.3 mmol/L (3.3-5.1); Sodium 140 mmol/L (135-145); Total Protein 6.2 g/dL (6.5-8.0)
== END 2022-02-27 02:03 | disposition home or self-care (01) ==
PROVIDERS: Physician Assistant; Emergency Provider Emergency Medicine; PCP Internal Medicine
DX: L03.115 Cellulitis of right lower limb (principal); L02.415 Cutaneous abscess of right lower limb; M79.651 Pain in right thigh
CPT/HCPCS: 10060; 36415; 80048; 80053; 85025; 87071; 87077; 87081; 87186; 87205; 90471; 90715; 96361; 96365; 99283; 99284; J2543

== ENCOUNTER 2022-03-04 09:00 | Outpatient (RCR) | payer MEDICARE, MEDICAID, SELFPAY | END 2022-04-13 11:08 | disposition home or self-care (01) | LOC: HO.WCC 09:00 | PROVIDERS: PCP Internal Medicine; Visit Provider Physician Assistant | DX: L02.415 Cutaneous abscess of right lower limb (principal); F81.9 Developmental disorder of scholastic skills, unspecified; K58.9 Irritable bowel syndrome, unspecified | CPT/HCPCS: 11042; 99212 ==

== ENCOUNTER 2022-04-18 11:13 | Outpatient (RCR) | payer MEDICARE, MEDICAID, SELFPAY | END 2022-05-18 12:29 | disposition home or self-care (01) | LOC: HO.WCC 11:13 | PROVIDERS: PCP Internal Medicine; Visit Provider Physician Assistant | DX: Z09 Encounter for follow-up examination after completed treatment for conditions other than malignant neoplasm (principal); Z87.2 Personal history of diseases of the skin and subcutaneous tissue | CPT/HCPCS: 11042; 99212 ==

== ENCOUNTER → 2022-05-11 12:55 | Outpatient (REF) | payer MEDICARE, MEDICAID, SELFPAY ==
--- NOTE | 2022-05-11 13:00 | CA_ITS ---
Transthoracic Echocardiogram Patient (Last, First, Middle): Stevan Andrade J Gender: Male Date of : 1965 Age: 56 Procedure Date: 05/11/2022 Procedure Type: Transthoracic Echocardiogram Location: OP Height: 175. cm Weight: 65. kg BSA: 1.79 m2 Heart Rate: 72 bpm BP: 110 / 70 mmHg Clothes Marker: MELO Referring MD: Mitul Mares MD Metal Base Blocker: Mk Laureano MD Symptoms: SYNCOPE AND COLLAPSE Study Quality: Fair ECG Rhythm: Sinus Conclusions: - 1. Low normal LV systolic function with LVEF of 50-55% with grade 1 diastolic dysfunction 2. Mild aortic and mitral regurgitation 3. No gross pericardial effusion Findings Left Ventricle Normal left ventricular cavity size. There is normal left ventricular wall thickness. The left ventricular systolic function is low normal. The visually estimated ejection fraction is between 50-55%. Spectral Doppler is indicative of an impaired relaxation filling pattern. E/E prime ratio is <8, consistent with normal filling pressures. Evidence suggests grade I (mild) diastolic dysfunction. Right Ventricle Normal right ventricular cavity size and systolic function. Atria Both atria are normal in size. There is no evidence of interatrial shunt. Aortic Valve The aortic valve structure and function is likely normal. There is no aortic valve stenosis. There is mild aortic valve regurgitation. Mitral Valve Normal mitral valve structure and function. There is mild mitral valve regurgitation. There is no mitral valve stenosis. Pulmonic Valve The pulmonic valve is likely normal. Tricuspid Valve Normal tricuspid valve structure. Tricuspid regurgitation envelope is inadequate for calculation of right ventricular systolic pressure. Normal right atrial pressure. Great Vessels All visible segments of the aorta are normal in size. The pulmonary artery was not well visualized. Venous The inferior vena cava is normal in size and collapses greater than 50% with inspiration. Pericardium/Pleural There is no evidence of pericardial effusion. Prior Study Comparison No prior study available for comparison. Measurements 2D Linear Measurements IVSd: 0.78 0.6-0.9/0.6-1.0 cm LVIDd: 5.39 3.9-5.3/4.2-5.9 cm LVIDd Index: 3.01 2.4-3.2/2.2-3.1 cm/m2 LVIDs: 3.86 2.0-3.6 cm LVPWd: 0.85 0.7-1.1 cm LA Diam: 2.90 2.7-3.8/3.0-4.0 cm LAIDs Index: 1.62 1.5-2.3 cm/m2 LV Mass: 196.78 67-162/88-224 g LV Mass Index: 109.93 43-95/49-115 g/m2 LVOT Diam: 2.00 3.0+(-)1.3 cm 2D Systolic Function EF 4C: 42.40 >55% EF 2C: 60.80 >55% EF BiP: 50.90 >55% Mitral Valve MV Pk E: 0.71 MV PK A: 0.60 MV Decel Time: 168.00 E/A: 1.20 E'Lateral: 7.51 E'Medial: 8.05 E/E' Med: 8.80 E/E' Lat: 9.40 PHT: 49.00 MVA PHT: 4.49 Decel Cecil: 4.20 Aortic Valve AoV Pk Andrea: 1.57 AoV Mn Andrea: 1.08 AoV VTI: 0.27 AoV Pk Grad: 10.00 Aov Mn Grad: 6.00 SANDRO Cont.VTI: 2.20 LVOT LVOT Pk Andrea: 1.10 LVOT Mn Andrea: 0.83 LVOT VTI: 0.19 LVOT Pk Grad: 5.00 LVOT Mn Grad: 3.00 LVOT Diam: 2.00 LVOT Area: 3.14 Diastolic Function MV Pk E: 0.71 MV Pk A: 0.60 E/A: 1.20 E'Medial: 8.05 E/E' Med: 8.80 E' Laterial: 7.51 E/E' Lat: 9.40 Right Ventricle TAPSE (mm): 26.90 TVS' Andrea: 12.80 Tricuspid Valve RA Press: 3.00 Great Vessels Aorta Sinus of Valsalva: 3.10 2.0-3.5 cm Ao Asc: 3.00 2.1-3.4 cm Pulmonary Valve PV Pk Andrea: 1.00 Peak PV Grad: 4.00 Updated in Other Vendor System with Status of Final Mk Laureano MD electronically signed on 05/12/2022 8:41:04 AM with status of Final
== END ==
LOC: HO.CARD 12:55
PROVIDERS: PCP Internal Medicine; Visit Provider Internal Medicine
DX: R55 Syncope and collapse (principal); R94.31 Abnormal electrocardiogram [ECG] [EKG]
CPT/HCPCS: 93306

== ENCOUNTER 2022-05-21 18:13 | Emergency (ER) | payer MEDICARE, MEDICAID, SELFPAY ==
--- NOTE | ~2022-05-21 | XR_ITS ---
EXAMINATION: XR CHEST CLINICAL INFORMATION: Dizziness COMPARISON: Chest x-ray February 12, 2022 TECHNIQUE: Frontal view of the chest was obtained. FINDINGS: Cardiac silhouette is normal in size. The lungs are well aerated. There is no lobar consolidation. No pleural effusion or pneumothorax. XR/XR chest 1V IMPRESSION: No acute pulmonary pathology.
--- NOTE | ~2022-05-21 | CT_ITS ---
EXAMINATION: CT HEAD WITHOUT CONTRAST CLINICAL INFORMATION: Dizziness and headache COMPARISON: Previous head CT January 2022 TECHNIQUE: Contiguous axial imaging was performed from the skull base to vertex without intravenous administration of contrast. This CT examination was performed using dose optimization techniques as appropriate, variously including the following: *Automated exposure control *Adjustment of mA and/or kV according to patient size (this includes techniques or standardized protocols for targeted exams where dose is matched to indication/reason for exam; i.e. extremities or head) *Use of iterative reconstruction technique DLP: 780 mGy-cm FINDINGS: There is no evidence of an extra-axial collection. There is no evidence of intra or extra-axial hemorrhage. The ventricles and extra-axial CSF spaces are appropriate. Barrera-white matter differentiation is normal. No mass, mass effect or infarct is seen. Review at bone windows is normal. No skull fracture. Visualized paranasal sinuses, mastoid air cells and middle ears are clear. CT/CT head/brain wo IV con IMPRESSION: Unremarkable exam.
[2022-05-21 19:43] VITALS: BP 113/62; PULSE 95; RESP 18; TEMP 36.9; O2SAT 97; BMI 19.1
[2022-05-22 00:18] VITALS: BP 113/55; PULSE 85; RESP 16; TEMP 36.4
[2022-05-22 00:31] LABS: MANUAL DIFF FLAG NO
[2022-05-22 00:33] LABS: Basophils Percent Auto 0.7 % (0-2); Eosinophils Absolute Auto 0.1 X10*3/uL (0.0-0.4); Eosinophils Percent Auto 2.7 % (0-4); Hematocrit 37.2 % (42.0-52.0); Hemoglobin 12.8 g/dl (14.0-18.0); Imm Gran Abs Auto 0.03 X10*3/uL (0.00-0.03); Imm Gran Pct Auto 0.7 % (0.0-0.4); Lymphocytes Absolute Auto 1.3 X10*3/uL (1.2-4.9); Mean Corpuscular HGB Conc 34.4 g/dl (31.0-36.0); Mean Corpuscular Hemoglobin 29.4 pg (27.0-33.0); Mean Corpuscular Volume 85.3 fL (80.0-98.0); Mean Platelet Volume 8.8 fL (9.4-12.4); Monocytes Absolute Auto 0.6 X10*3/uL (0.1-1.2); Monocytes Percent Auto 12.9 % (2-11); Neutrophils Absolute Auto 2.4 x10*3/uL (2.0-8.3); Platelet Count 191 X10*3/uL (160-400); Red Blood Count 4.36 X10*6/uL (4.60-5.80); Red Cell Distribution Width 12.4 % (11.0-16.0); White Blood Count 4.5 X10*3/uL (4.8-10.8)
[2022-05-22 00:49] LABS: Alanine Aminotransferase 19 U/L (0-40); Albumin Level 4.4 g/dL (3.5-5.0); Alkaline Phosphatase 74 U/L (39-117); Anion Gap 17 (12-20); Aspartate Amino Transferase 17 U/L (5-37); Bilirubin Total 0.5 mg/dL (0.0-1.0); Blood Urea Nitrogen 19 mg/dL (9-16); Calcium 9.4 mg/dL (8.4-10.2); Carbon Dioxide 26 mmol/L (22-29); Chloride 104 mmol/L (96-108); Creatinine Clr Calc Pharmacy 54.1; Estimated Glomerular Filt Rate 57; Glucose Random 89 mg/dL (60-115); Potassium 4.6 mmol/L (3.3-5.1); Sodium 142 mmol/L (135-145); Total Protein 7.3 g/dL (6.5-8.0)
[2022-05-22 04:51] VITALS: BP 109/62; PULSE 66; RESP 18; TEMP 36.7; O2SAT 100
--- NOTE | 2022-05-22 10:58 | ECG_ITS ---
Test Reason : DIZZINESS Blood Pressure : / mmHG Vent. Rate : 070 BPM Atrial Rate : 070 BPM P-R Int : 174 ms QRS Dur : 150 ms QT Int : 454 ms P-R-T Axes : 076 -42 070 degrees QTc Int : 490 ms Normal sinus rhythm Left axis deviation Left bundle branch block Abnormal ECG When compared with ECG of 12-FEB-2022 17:26, Premature ventricular complexes are no longer Present Referred By: Sadaf Silva Electronically Signed By:OLIVIA BARRIENTOS
--- NOTE | 2022-05-22 11:06 | ED.GENADULT ---
HPI - General Adult General Chief complaint: General Medical Stated complaint: Dizziness Time Seen by Provider: 05/22/22 02:10 Source: patient Mode of arrival: ambulatory History of Present Illness HPI narrative: 56-year-old male with a medical history of intellectual disability, renal calculi, COVID-19, presenting to the ED complaining of dizziness times a couple days. States symptoms are intermittent, described as room spinning and also lightheaded with mild headache. States symptoms worse with position changes/head movement, admits to similar symptoms in the past. Denies dizziness at present. Denies vision change/loss, CP/SOB, abdominal pain, nausea/vomiting, fever. Reports p.o. intake WNL. Onset (ago): day(s) Related Data Home Medications Medication Instructions Recorded Confirmed loperamide-simethicone 2 mg-125 mg 1 tab PO Q1H PRN Loose Stool 02/15/22 02/15/22 tablet Previous Rx's Medication Instructions Recorded cephalexin 500 mg tablet 500 mg PO Q6H 10 days #40 tabs 02/26/22 doxycycline hyclate 100 mg capsule 100 mg PO BID 10 days #20 caps 02/26/22 Allergies Allergy/AdvReac Type Severity Reaction Status Date / Time No Known Allergies Allergy Verified 02/26/22 17:04 Review of Systems Review of Systems: Constitutional: No Fever, No Chills, No Fatigue, No Malaise ENT/Mouth: No Ear Pain, No Nasal Congestion, No sore throat, No Rhinorrhea, No Swallowing Difficulty Eyes: No Eye Pain, No Swelling, No Redness, No Vision Changes Cardiovascular: No Chest Pain, No SOB, No Dyspnea on Exertion, No Palpitations Respiratory: No Cough, No Sputum, No Dyspnea Gastrointestinal: No Nausea, No Vomiting, No Diarrhea, No Constipation, No Abdominal pain Genitourinary: No Dysuria, No Urinary Frequency, No Hematuria, No Flank Pain Musculoskeletal: No joint pain, No Myalgias, No Joint Swelling Skin: No Skin Lesions, No rash Neuro: No Weakness, No Numbness, No Paresthesias, +Dizziness, + Headache Yes all other systems are reviewed and are negative Constitutional: Constitutional: Reports as per HPI Neurologic: Denies Abnormal speech present [facility] Past Medical History Attestation statement: The following information was validated with the patient. Medical History History of COVID-19 Intellectual disability Renal calculi Surgical History H/O colonoscopy Hx of cystoscopy Hx of lithotripsy Social History Social History Patient Tobacco Use Status: Never used Tobacco Use of substances other than those prescribed or required for medical reasons: No Advance Directives: No Advance Directives Information Provided: Yes Physical Exam ED Vital Signs: Vital Signs - 24 hr 05/21/22 19:43 05/22/22 00:18 05/22/22 04:51 Temperature 98.4 F 97.5 F 98.1 F Pulse Rate 95 85 66 Respiratory Rate 18 16 18 Blood Pressure 113/62 113/55 L 109/62 Pulse Oximetry 97 100 Oxygen Delivery Method Room Air Room Air Room Air 05/22/22 12:00 05/22/22 12:01 05/22/22 12:03 Temperature Pulse Rate 78 89 78 Respiratory Rate 18 Blood Pressure 116/67 104/64 119/64 Pulse Oximetry 99 Oxygen Delivery Method Room Air 05/22/22 12:00 05/22/22 13:45 Temperature Pulse Rate 79 69 Respiratory Rate 18 Blood Pressure 119/64 107/56 L Pulse Oximetry 100 Oxygen Delivery Method Room Air BMI result Body Mass Index 19.1 Const General: cooperative, healthy appearing and no acute distress Orientation/consciousness: patient oriented x3 Limitations: no limitations HENMT Head: Yes normal to inspection and Yes atraumatic Ears: hearing grossly normal bilaterally General nose exam: Normal external nose present Face and sinus: Yes normal facial exam Eyes General: appearance normal, both eyes and all related structures Pupils: Equal, round and reactive pupils present EOM: EOMs intact bilaterally Neck Neck: Yes normal visual inspection and Yes no meningeal signs Resp Effort & Inspection: normal respiratory effort and no respiratory distress Auscultation: clear to auscultation bilaterally, no crackles, no rales, no rhonchi and no wheezes Cardio Rate: regular rate Heart sounds: S1 normal heart sound present and S2 normal heart sound present GI Inspection: Yes normal to inspection Palpation (GI): Soft to palpation, nontender, no guarding and not rigid Skin Rashes: no rashes Wounds: no wounds Neuro General: patient oriented x3, gait normal, tone normal, moves all extremities, no meningeal signs, no focal motor deficits and CN's II-XI intact bilaterally Cranial nerves: Yes CN's II-XII intact bilaterally and Yes Equal, round and reactive pupils present Cognition (Neuro): normal cognition Speech: No Abnormal speech present Gait exam (Neuro): Normal gait present Motor exam (neuro): 5/5 motor strength present throughout, Pronator motor function not present and no tremor noted Coordination: [id number] test normal Romberg Test: Negative Extrem General: Yes normal to inspection Course Course Course Narrative: -acute on chronic leukopenia. H&H stable. Troponin negative. Labs otherwise unremarkable -head CT and CXR unremarkable. Patient currently asymptomatic, denies dizziness at present -1412--orthostatic vital signs negative, UA negative Results discussed with patient including worrisome signs and symptoms and strict return precautions, and when to return to the emergency department. They verbalized understanding and feel safe for discharge at this time. Medical Decision Making MDM Narrative Medical decision making narrative: 56-year-old male with a medical history of intellectual disability, renal calculi, COVID-19, presenting to the ED complaining of dizziness x a couple days. Symptoms worse with position changes/head movement. Denies dizziness at present. On exam vital signs stable, NAD, nontoxic appearing, no focal neuro deficits, ambulating with steady gait, no ataxia. Concern for vertigo/BPPV vs orthostasis. Low suspicion for ACS, PE, CVA/TIA with intermittent nature of symptoms Plan: EKG, labs, UA, head CT, CXR, IVF, meclizine, Reglan, re-evaluate Medical Records Medical records reviewed: Yes I reviewed the patient's medical records. Lab Data Lab results reviewed: Yes I reviewed the patient's lab results. Result diagrams: 05/22/22 00:27 05/22/22 00:27 Labs: Lab Results 05/22/22 05/22/22 05/22/22 Range/Units 00:27 00:27 11:25 WBC 4.5 L (4.8-10.8) X10*3/uL RBC 4.36 L (4.60-5.80) X10*6/uL Hgb 12.8 L (14.0-18.0) g/dl Hct 37.2 L (42.0-52.0) % MCV 85.3 (80.0-98.0) fL MCH 29.4 (27.0-33.0) pg MCHC 34.4 (31.0-36.0) g/dl RDW 12.4 (11.0-16.0) % Plt Count 191 (160-400) X10*3/uL MPV 8.8 L (9.4-12.4) fL Immature Gran % (Auto) 0.7 H (0.0-0.4) % Neut % (Auto) 54.0 (45-73) % Lymph % (Auto) 29.0 (20-40) % Mayes % (Auto) 12.9 H (2-11) % Eos % (Auto) 2.7 (0-4) % Baso % (Auto) 0.7 (0-2) % Lymph # (Auto) 1.3 (1.2-4.9) X10*3/uL Mayes # (Auto) 0.6 (0.1-1.2) X10*3/uL Eos # (Auto) 0.1 (0.0-0.4) X10*3/uL Baso # (Auto) 0.0 (0.0-0.2) X10*3/uL Abs Immat Gran (auto) 0.03 (0.00-0.03) X10*3/uL Absolute Neuts (auto) 2.4 (2.0-8.3) x10*3/uL Absolute Nucleated RBC 0.000 (0.0-0.012) X10*3/uL Nucleated RBC % (auto) 0.0 (0.0-0.2) /100WBC Sodium 142 (135-145) mmol/L Potassium 4.6 (3.3-5.1) mmol/L Chloride 104 (96-108) mmol/L Carbon Dioxide 26 (22-29) mmol/L Anion Gap 17 (12-20) BUN 19 H (9-16) mg/dL Creatinine 1.30 (0.5-1.4) mg/dL Estim Creat Clear Calc 54.1 Estimated GFR 57 Random Glucose 89 D (60-115) mg/dL Calcium 9.4 D (8.4-10.2) mg/dL Magnesium 1.8 (1.6-2.6) mg/dL Total Bilirubin 0.5 (0.0-1.0) mg/dL Direct Bilirubin 0.2 (0.0-0.5) mg/dL AST 17 D (5-37) U/L ALT 19 (0-40) U/L Alkaline Phosphatase 74 (39-117) U/L Troponin I High Sens < 3.5 (<3.5-35.0) ng/L Total Protein 7.3 (6.5-8.0) g/dL Albumin 4.4 (3.5-5.0) g/dL Urine Color Urine Appearance Urine pH (5.0-9.0) Ur Specific [place] (1.005-1.025) Urine Protein (Neg-Trace) mg/dL Urine Glucose (UA) (Negative) mg/dL Urine Ketones (Negative) mg/dL Urine Blood (Negative) Urine Nitrite (Negative) Ur Leukocyte Esterase (Negative) 05/22/22 Range/Units 13:44 WBC (4.8-10.8) X10*3/uL RBC (4.60-5.80) X10*6/uL Hgb (14.0-18.0) g/dl Hct (42.0-52.0) % MCV (80.0-98.0) fL MCH (27.0-33.0) pg MCHC (31.0-36.0) g/dl RDW (11.0-16.0) % Plt Count (160-400) X10*3/uL MPV (9.4-12.4) fL Immature Gran % (Auto) (0.0-0.4) % Neut % (Auto) (45-73) % Lymph % (Auto) (20-40) % Mayes % (Auto) (2-11) % Eos % (Auto) (0-4) % Baso % (Auto) (0-2) % Lymph # (Auto) (1.2-4.9) X10*3/uL Mayes # (Auto) (0.1-1.2) X10*3/uL Eos # (Auto) (0.0-0.4) X10*3/uL Baso # (Auto) (0.0-0.2) X10*3/uL Abs Immat Gran (auto) (0.00-0.03) X10*3/uL Absolute Neuts (auto) (2.0-8.3) x10*3/uL Absolute Nucleated RBC (0.0-0.012) X10*3/uL Nucleated RBC % (auto) (0.0-0.2) /100WBC Sodium (135-145) mmol/L Potassium (3.3-5.1) mmol/L Chloride (96-108) mmol/L Carbon Dioxide (22-29) mmol/L Anion Gap (12-20) BUN (9-16) mg/dL Creatinine (0.5-1.4) mg/dL Estim Creat Clear Calc Estimated GFR Random Glucose (60-115) mg/dL Calcium (8.4-10.2) mg/dL Magnesium (1.6-2.6) mg/dL Total Bilirubin (0.0-1.0) mg/dL Direct Bilirubin (0.0-0.5) mg/dL AST (5-37) U/L ALT (0-40) U/L Alkaline Phosphatase (39-117) U/L Troponin I High Sens (<3.5-35.0) ng/L Total Protein (6.5-8.0) g/dL Albumin (3.5-5.0) g/dL Urine Color Yellow Urine Appearance Clear Urine pH 7.0 (5.0-9.0) Ur Specific [place] 1.010 (1.005-1.025) Urine Protein Negative (Neg-Trace) mg/dL Urine Glucose (UA) Negative (Negative) mg/dL Urine Ketones Negative (Negative) mg/dL Urine Blood Negative (Negative) Urine Nitrite Negative (Negative) Ur Leukocyte Esterase Negative (Negative) Discharge Plan Discharge Clinical Impression: Dizziness Patient Disposition: Home, Self-Care Instructions: Vertigo (ED) Additional Instructions: Your blood work, head CT, chest x-ray were reassuring. Meclizine will help with her dizziness. Stay hydrated. Rest. Get up slowly when changing positions. If symptoms persist or worsen, constant or worsening dizziness, developed headache, chest pain, or shortness of breath please return to the emergency department Prescriptions: No Action loperamide-simethicone [Imodium Advanced] 2-125 mg Tablet 1 tab PO Q1H PRN (Reason: Loose Stool) Rx Instructions: do not exceed 4 tabs in 24 hrs doxycycline hyclate 100 mg capsule 100 mg PO BID 10 Days Qty: 20 0RF cephalexin 500 mg tablet 500 mg PO Q6H 10 Days Qty: 40 0RF Referrals: Mitul Mares MD [Primary Care Provider] - 3 days
[2022-05-22 11:20] LABS: Bilirubin Direct 0.2 mg/dL (0.0-0.5); Magnesium 1.8 mg/dL (1.6-2.6)
[2022-05-22 11:48] LABS: Troponin-I High Sensitivity < 3.5 ng/L (<3.5-35.0)
[2022-05-22 12:00] VITALS: BP 116/67; BP 119/64; PULSE 78; PULSE 79
[2022-05-22 12:01] VITALS: BP 104/64; PULSE 89
[2022-05-22 12:03] VITALS: BP 119/64; PULSE 78; RESP 18; O2SAT 99
[2022-05-22] MEDS: Meclizine HCl 25 MG TABLET PO (12:11)
[2022-05-22] MEDS: 0.9 % Sodium Chloride 1,000 ML 999 ML IV (12:11)
[2022-05-22] MEDS: Metoclopramide HCl 10 MG/2 ML VIAL IVPUSH (12:11)
[2022-05-22 13:45] VITALS: BP 107/56; PULSE 69; RESP 18; O2SAT 100
[2022-05-22 13:52] LABS: Appearance Urine Clear; Color Urine Yellow; Glucose Urine UA Negative (Negative); Leukocyte Esterase Urine Negative (Negative); Nitrite Urine Negative (Negative); Urine Blood Negative (Negative); Urine Ketones Negative (Negative); Urine Protein Negative (Neg-Trace)
== END 2022-05-22 14:52 | disposition home or self-care (01) ==
PROVIDERS: Physician Assistant; Emergency Provider Internal Medicine; PCP Internal Medicine
DX: R42 Dizziness and giddiness (principal); R51.9 Headache, unspecified; Z79.899 Other long term (current) drug therapy
CPT/HCPCS: 36415; 70450; 71045; 80053; 81003; 82248; 83735; 84484; 85025; 93005; 96374; 99284; 99285; J2765

== ENCOUNTER 2022-06-28 10:41 | Emergency (ER) | payer MEDICARE, MEDICAID, SELFPAY ==
[2022-06-28 10:48] VITALS: BP 109/68; PULSE 79; RESP 18; TEMP 36.6; O2SAT 98; BMI 20.3
[2022-06-28 11:09] LABS: MANUAL DIFF FLAG NO
[2022-06-28 11:13] LABS: Basophils Percent Auto 0.5 % (0-2); Eosinophils Absolute Auto 0.1 X10*3/uL (0.0-0.4); Eosinophils Percent Auto 1.2 % (0-4); Hemoglobin 13.3 g/dl (14.0-18.0); Imm Gran Abs Auto 0.01 X10*3/uL (0.00-0.03); Imm Gran Pct Auto 0.2 % (0.0-0.4); Lymphocytes Absolute Auto 0.7 X10*3/uL (1.2-4.9); Lymphocytes Percent Auto 15.4 % (20-40); Mean Corpuscular HGB Conc 33.3 g/dl (31.0-36.0); Mean Corpuscular Volume 87.1 fL (80.0-98.0); Mean Platelet Volume 8.6 fL (9.4-12.4); Monocytes Absolute Auto 0.3 X10*3/uL (0.1-1.2); Monocytes Percent Auto 6.6 % (2-11); Neutrophils Absolute Auto 3.2 x10*3/uL (2.0-8.3); Neutrophils Percent Auto 76.1 % (45-73); Platelet Count 182 X10*3/uL (160-400); Red Blood Count 4.59 X10*6/uL (4.60-5.80); Red Cell Distribution Width 12.7 % (11.0-16.0); White Blood Count 4.2 X10*3/uL (4.8-10.8)
[2022-06-28 11:15] LABS: Appearance Urine Clear; Color Urine Yellow; Glucose Urine UA Negative (Negative); Leukocyte Esterase Urine Negative (Negative); Nitrite Urine Negative (Negative); Specific Gravity - Urine 1.015 (1.005-1.025); Urine Blood Negative (Negative); Urine Ketones Negative (Negative); Urine Protein Trace mg/dL (Neg-Trace)
[2022-06-28 11:28] LABS: Anion Gap 13 (12-20); Blood Urea Nitrogen 15 mg/dL (9-16); Calcium 9.5 mg/dL (8.4-10.2); Carbon Dioxide 31 mmol/L (22-29); Chloride 106 mmol/L (96-108); Estimated Glomerular Filt Rate 60; Glucose Random 99 mg/dL (60-115); Potassium 3.7 mmol/L (3.3-5.1); Sodium 146 mmol/L (135-145)
[2022-06-28 13:21] VITALS: BP 110/66; PULSE 84; RESP 19; TEMP 36.1; O2SAT 98
[2022-06-28 15:15] LABS: Influenza A PCR NEGATIVE (Negative); Influenza B PCR NEGATIVE (Negative); Resp Syncy Virus RNA Qual PCR NEGATIVE (Negative); SARS COV2 PCR INHOUSE NEGATIVE (Negative)
[2022-06-28 16:38] VITALS: BP 123/75; PULSE 70; RESP 18; TEMP 36.5; O2SAT 97
[2022-06-28 20:39] VITALS: BP 110/68; PULSE 60; RESP 18; TEMP 36.7; O2SAT 98
--- OUTSIDE RECORDS SUMMARY | 2022-06-28 21:19 | XMS_ITS ---
:1965 Author Organization [facility] Address [address] [place] [address] Care Team Providers Name Role Phone Tariq Sethi Unavailable Unavailable PROBLEMS Type Condition ICD9-CM Code [id number] Onset Condition SNOMED Code Code Dates Status Problem History of colon Z86.010 Active polyps Problem Diverticulosis of K57.30 Active 73 0272391 colon Problem Encounter for Z12.12 Active 124565 007 screening for malignant neoplasm of rectum Problem Encounter for Z12.11 Active 581922 004 screening for malignant neoplasm of colon Problem Personal history of Z86.010 Active 484057080 colonic polyps Problem Chronic diarrhea K52.9 Active 236 104479 ALLERGIES No Known Allergies ENCOUNTERS Encounter Location Date Diagnosis [facility] [place] [address] [place] [address] Jan, Internal hemorr hoids K64.8 [place] [id number] ; Divertic ulosis of colon K57.30 ; Diarrhe a R19.7 and History of colon polyps Z86.[address] December, Chronic diarrhea K52.9 ; [facility] [address] [place] Personal h istory of colonic [address] polyps Z86.010 a nd Encounter for ak reening for malignant neopla sm of colon Z12.[address] Nov, [facility] [address] [place] [address] [facility] [place] [facility] Oct, [place] [id number] [address] Oct, [facility] [address] [place] [address] Jul, Encounte r for screening for [facility] [address] [place] malignant neoplasm of colon [address] Z12.11 and Encou nter for screening for ma lignant neoplasm of rect um Z12.12 [place] [address] Apr, [facility] [address] [place] [address] [place] [address] Jun, [facility] [address] [place] [address] [place] [address] Apr, [facility] [address] [place] [address] [place] [address] Feb, [facility] [address] [place] [address] [facility] [place] [facility] 17 Mar, 2010 [place] [id number] IMMUNIZATIONS Vaccine Route Administration Date Status Influenza Unknown Apr 28, 2021 Administered Influenza Unknown February 26, 2016 Administered SOCIAL HISTORY Never Assessed REASON FOR REFERRAL FUNCTIONAL STATUS PLAN OF CARE Activity Details Pending Test LIVER PROFILE Pending Test CRP Pending Test CBC w DIFF Pending Test SED RATE (ESR) Pending Test CELIAC PANEL #10 Pending Test STOOL WBC Pending Test C DIFFICILE RFLX PCR Pending Test CALPROTECTIN, STOOL Pending Test Giardia Ag Stool EIA Pending Test Stool Culture Pending Test Ova and Parasite Future/Pending Procedure COLONOSCOPY 20220125 Future/Pending Procedure COLONOSCOPY [id number] VITAL SIGNS Weight 144 lbs 2022-01-25 Weight 166 lbs 2016-08-12 Height 71 in 2022-01-25 Height 71 in 2016-08-12 BMI 20.08 kg/m2 2022-01-25 BMI 23.15 kg/m2 2016-08-12 Heart Rate 68 /min 2016-08-12 Temperature 98.6 degrees Fahrenheit 2022-01-25 Blood pressure systolic 000 mm Hg 2022-01-25 Blood pressure diastolic 00 mm Hg 2022-01-25 MEDICATIONS Medication Instructions Dosage Frequency Start Date End Date Duration S tatus Imodium Advanced Active PROCEDURES Procedure Date Ordered Result Body Site BP SCR NOT PRFRM REC REASON NOS January 25, 2022 TOBACCO NON-USER January 25, 2022 DOC MEDS VERIFIED W/PT OR RE January 25, 2022 COLORECTAL CA SCREEN DOC REV January 25, 2022 PRECOLON [facility]ICARE [place] [facility] Aug 12, 2016 COLONOSCOPY AND BIOPSY February 21, 2022 RESULTS Name Result Date Reference Range Pathology 2022-02-21 Complete Blood Count Auto Diff 2022-01-27 White Blood Count 3.9 4.8-10.8 Red Blood Count 4.10 4.60-5.80 Hemoglobin 12.0 14.0-18.0 Hematocrit 36.1 42.0-52.0 Mean Corpuscular Volume 88.0 80.0-98. 0 Mean Corpuscular Hemoglobin 29.3 27.0 -33.0 Mean Corpuscular HGB Conc 33.2 31.0-3 6.0 Red Cell Distribution Width 13.2 11.0 -16.0 Platelet Count 179 160-400 Mean Platelet Volume 8.9 9.4-12.4 Neutrophils Percent Auto 64.6 45-73 Imm Gran Pct Auto 0.0 0.0-0.4 Lymphocytes Percent Auto 24.4 20-40 Monocytes Percent Auto 9.0 2-11 Eosinophils Percent Auto 1.5 0-4 Basophils Percent Auto 0.5 0-2 NRBC Pct Auto 0.0 0.0-0.2 Neutrophils Absolute Auto 2.5 2.0-8. 3 Imm Gran Abs Auto 0.00 0.00-0.03 Lymphocytes Absolute Auto 1.0 1.2-4. 9 Monocytes Absolute Auto 0.4 0.1-1.2 Eosinophils Absolute Auto 0.1 0.0-0. 4 Basophils Absolute Auto 0.0 0.0-0.2 NRBC Abs Auto 0.000 0.0-0.012 Erythrocyte Sedimentation Rate 2022-01-27 Erythrocyte Sedimentation Rate 6 0 -15 Liver Panel 2022-01-27 Bilirubin Total 0.6 0.0-1.0 Bilirubin Direct 0.3 0.0-0.5 Aspartate Amino Transferase 13 5-37 Alanine Aminotransferase 14 0-40 Total Protein 7.0 6.5-8.0 Albumin Level 4.0 3.5-5.0 Alkaline Phosphatase 66 39-117 C Reactive Protein 2022-01-27 C Reactive Protein 0.08 < or = 0.50 Immunoglobulin A 2022-01-27 Immunoglobulin A 483 47-310 Transglutaminase Ab IgG 2022-01-27 Transglutaminase Ab IgG <1.0 Transglutaminase IgA 2022-01-27 Transglutaminase IgA <1.0 Gliadin Ab Panel 2022-01-27 Gliadin Deamidated IgA Ab <1.0 Gliadin Deamidated IgG Ab <1.0 Endomysial IgA rflx Titer 2022-01-27 Endomysial IgA Antibody Negative Negative Endomysial Titer TNP GI BIOPSY 2016-11-25 G.I. BIOPSY REASON FOR VISIT SCREENING COLON, screening,hx polyps, Patient presents today for a SCREENING COLON, RE: Looking for his results, screening colonoscopy, RE: his prep, patient presents today for a Screening Colonoscopy,no show on 05-10-16, Colon Screening, ? IBS, ibs?, NO SHOW, IBS?, no show, IBS, DIARRHEA, no show Insurance Providers [facility] Health Member Patient Patient Patient Patient Patient Subscriber Subscriber Subscriber Group Insurance Plan Plan Plan Plan ID Relationship Address Phone Name Date of ID Name Date of No Type Insurance Insurance Insurance Coverage to Subscriber Address Phone Name Dates MEDICARE [phone] MEDICARE self [place] [id number] [place] [address] [place] [facility] [place] [address] MEDICAID [id number] MEDICAID self [place] [id number] OF [facility] [address] [place] [address]
--- OUTSIDE RECORDS SUMMARY | 2022-06-28 21:19 | XMS_ITS ---
:1965 Author Care Team Providers Name Role Phone Pranav Veras Primary Care Provider Unavailable Allergies Code Code System Name Reaction Severity Status Onset NKDA ? Medications None recorded. Problems None recorded. Procedures None recorded. Results Lab Results Date Name Specimen Result Interpretation Description Value Range Status Address ? 05/27/2021 Covid-19 (Novel ? Covid-19 ? (neg) F inal [facility] Coronavirus) PCR PCR Result Reference Laboratori es: [address] ? ? ? Covid-19 nasal ? Final [facility] PCR Reference Specimen Labor[facility]: Source [address] Past Encounters 05/27/2021 Viral Syndrome; Exposure to Communicable Disease Tylor Holder DIGITAL PROGRAM MANAGER: [place] [address], Ph. [phone] Social History Tobacco Smoking Status Never Smoker Vaccine List None recorded. Plan of Care Reminders Provider Appointments None recorded. ? ? Lab None recorded. ? ? Referral None recorded. ? ? Procedures None recorded. ? ? Surgeries None recorded. ? ? Imaging None recorded. ? ? Vitals Blood Pressure 116/74 mm[Hg]
--- NOTE | 2022-06-28 22:01 | PC.NURSE ---
Kristin Arcos ([phone]) from a [facility] called the nurse to notified that the patient is mentally delay and there is no transportation after tomorrow 9 am.
--- NOTE | 2022-06-28 22:11 | ED.DIZZY ---
HPI - Dizziness General Chief Complaint: Dizziness Stated Complaint: dizziness Time Seen by Provider: 06/28/22 21:16 Source: patient Mode of arrival: ambulatory Limitations: no limitations History of Present Illness HPI Narrative: 56-year-old male who presents emergency department for evaluation of dizziness x2 days. The patient describes the dizziness as a spinning sensation. The dizziness is worse if he stands up or turns head. This is 1st episode of this type of dizziness. He denied fever, chills, rhinorrhea, sore throat, cough chest pain, shortness of breath, nausea, vomiting, diarrhea, dark black stools or bloody stools. MD elicited complaint: dizziness Onset (ago): day(s) (2) Timing: sudden onset Severity: moderate Description: room spinning Context: change in body position History of similar symptoms: No Exacerbating factors: change in body position Relieving factors: nothing Associated symptoms: denies other symptoms Related Data Home Medications Medication Instructions Recorded Confirmed loperamide-simethicone 2 mg-125 mg 1 tab PO Q1H PRN Loose Stool 02/15/22 02/15/22 tablet Previous Rx's Medication Instructions Recorded cephalexin 500 mg tablet 500 mg PO Q6H 10 days #40 tabs 02/26/22 doxycycline hyclate 100 mg capsule 100 mg PO BID 10 days #20 caps 02/26/22 meclizine 25 mg tablet (Dramamine 25 mg PO TID PRN dizziness #20 tabs 06/28/22 Less Drowsy) Allergies Allergy/AdvReac Type Severity Reaction Status Date / Time No Known Allergies Allergy Verified 02/26/22 17:04 Review of Systems Review of Systems: Yes all other systems are reviewed and are negative [facility] Past Medical History [facility] Narrative: Social history: He states that he lives at [facility] by himself. He denies tobacco, alcohol and drug use. Medical History History of COVID-19 Intellectual disability Renal calculi Surgical History H/O colonoscopy Hx of cystoscopy Hx of lithotripsy Social History Social History Patient Tobacco Use Status: Never used Tobacco Advance Directives: No Advance Directives Information Provided: No Physical Exam Vital Signs: Vital Signs: Last Vital Signs Temp 98.1 F 06/28/22 20:39 Pulse 60 06/28/22 20:39 Resp 18 06/28/22 20:39 BP 110/68 06/28/22 20:39 Pulse Ox 98 06/28/22 20:39 O2 Del Method 06/28/22 20:39 BMI result Body Mass Index 20.3 Const: General: cooperative and no acute distress Orientation/consciousness: oriented to person and oriented to place Limitations: no limitations HEENT: Head: Yes normal to inspection, Yes normocephalic and Yes atraumatic Ears: external ears normal General nose exam: Normal external nose present Face and sinus: Yes normal facial exam Mouth: Normal oral and palatal mucosa present Throat: Yes posterior oropharynx normal Eyes: General: appearance normal, both eyes and all related structures Pupils: Equal, round and reactive pupils present EOM: Nystagmus present Neck: Neck: Yes normal visual inspection, Yes no lymphadenopathy, Yes trachea midline and Yes supple Chest: Chest palpation & inspection: normal inspection of the chest and normal palpation of entire chest wall Resp: Effort & Inspection: normal respiratory effort and able to speak in complete sentences Auscultation: clear to auscultation bilaterally Cardio: Rate: regular rate Rhythm: regular rhythm Heart sounds: S1 normal heart sound present, S2 normal heart sound present and no murmurs GI: Inspection: Yes normal to inspection Palpation (GI): Soft to palpation, nontender and no guarding Auscultation: normal bowel sounds : General: Yes no CVA tenderness Back/Spine/Pelvis: Back: no CVA tenderness Skin: General skin exam: no rashes or lesions noted Neuro: General: oriented to person and oriented to place Cranial nerves: Yes CN's II-XII intact bilaterally, Yes Equal, round and reactive pupils present and Yes Nystagmus present Cognition (Neuro): normal cognition Motor exam (neuro): 5/5 motor strength present throughout Extrem: General: Yes normal to inspection Psych: Appearance: grossly normal Speech and movement: Normal speech and movement present Affect: normal affect Attitude: cooperative Thought process: Normal thought process present Thought content: Normal thought content present Course Course Course Narrative: 56-year-old male who presents emergency department for evaluation of vertigo/room spinning dizziness that occurs with position change back standing or turning his head x2 days. The patient states this is 1st episode of vertigo like symptoms. His review of systems was negative. Patient's physical examination did reveal lateral nystagmus and symptomatic vertigo with position change. Exam was otherwise unremarkable with a non focal neurologic exam. The patient had a CBC which revealed a low white blood count of 4200. Comprehensive metabolic panel revealed slight elevation is sodium of 146 and an elevated CO2 of 31. COVID-19 was negative. Patient's presentation exam is consistent with benign positional vertigo. Patient was given meclizine 25 mg orally in the emergency department. He was started on meclizine 25 mg 3 times a day as needed for dizziness, he was given printed and verbal instructions and discharged home. MDM - Dizziness Lab Data Result diagrams: 06/28/22 11:00 06/28/22 11:00 Labs: Lab Results 06/28/22 06/28/22 06/28/22 Range/Units 11:00 11:00 11:00 WBC 4.2 L (4.8-10.8) X10*3/uL RBC 4.59 L (4.60-5.80) X10*6/uL Hgb 13.3 L (14.0-18.0) g/dl Hct 40.0 L (42.0-52.0) % MCV 87.1 (80.0-98.0) fL MCH 29.0 (27.0-33.0) pg MCHC 33.3 (31.0-36.0) g/dl RDW 12.7 (11.0-16.0) % Plt Count 182 (160-400) X10*3/uL MPV 8.6 L (9.4-12.4) fL Immature Gran % (Auto) 0.2 (0.0-0.4) % Neut % (Auto) 76.1 H (45-73) % Lymph % (Auto) 15.4 L (20-40) % [place] % (Auto) 6.6 (2-11) % Eos % (Auto) 1.2 (0-4) % Baso % (Auto) 0.5 (0-2) % Lymph # (Auto) 0.7 L (1.2-4.9) X10*3/uL [place] # (Auto) 0.3 (0.1-1.2) X10*3/uL Eos # (Auto) 0.1 (0.0-0.4) X10*3/uL Baso # (Auto) 0.0 (0.0-0.2) X10*3/uL Abs Immat Gran (auto) 0.01 (0.00-0.03) X10*3/uL Absolute Neuts (auto) 3.2 (2.0-8.3) x10*3/uL Absolute Nucleated RBC 0.000 (0.0-0.012) X10*3/uL Nucleated RBC % (auto) 0.0 (0.0-0.2) /100WBC Sodium 146 H (135-145) mmol/L Potassium 3.7 (3.3-5.1) mmol/L Chloride 106 (96-108) mmol/L Carbon Dioxide 31 H (22-29) mmol/L Anion Gap 13 (12-20) BUN 15 (9-16) mg/dL Creatinine 1.25 (0.5-1.4) mg/dL Estim Creat Clear Calc 55.0 Estimated GFR 60 Random Glucose 99 (60-115) mg/dL Calcium 9.5 (8.4-10.2) mg/dL Urine Color Yellow Urine Appearance Clear Urine pH 6.0 (5.0-9.0) Ur Specific [place] 1.015 (1.005-1.025) Urine Protein Trace (Neg-Trace) mg/dL Urine Glucose (UA) Negative (Negative) mg/dL Urine Ketones Negative (Negative) mg/dL Urine Blood Negative (Negative) Urine Nitrite Negative (Negative) Ur Leukocyte Esterase Negative (Negative) Influenza Type A (PCR) Influenza Type B (PCR) RSV RNA Qual (PCR) SARS-CoV-2 RNA (RT-PCR) 06/28/22 06/28/22 Range/Units 13:21 13:36 WBC (4.8-10.8) X10*3/uL RBC (4.60-5.80) X10*6/uL Hgb (14.0-18.0) g/dl Hct (42.0-52.0) % MCV (80.0-98.0) fL MCH (27.0-33.0) pg MCHC (31.0-36.0) g/dl RDW (11.0-16.0) % Plt Count (160-400) X10*3/uL MPV (9.4-12.4) fL Immature Gran % (Auto) (0.0-0.4) % Neut % (Auto) (45-73) % Lymph % (Auto) (20-40) % [place] % (Auto) (2-11) % Eos % (Auto) (0-4) % Baso % (Auto) (0-2) % Lymph # (Auto) (1.2-4.9) X10*3/uL [place] # (Auto) (0.1-1.2) X10*3/uL Eos # (Auto) (0.0-0.4) X10*3/uL Baso # (Auto) (0.0-0.2) X10*3/uL Abs Immat Gran (auto) (0.00-0.03) X10*3/uL Absolute Neuts (auto) (2.0-8.3) x10*3/uL Absolute Nucleated RBC (0.0-0.012) X10*3/uL Nucleated RBC % (auto) (0.0-0.2) /100WBC Sodium (135-145) mmol/L Potassium (3.3-5.1) mmol/L Chloride (96-108) mmol/L Carbon Dioxide (22-29) mmol/L Anion Gap (12-20) BUN (9-16) mg/dL Creatinine (0.5-1.4) mg/dL Estim Creat Clear Calc Estimated GFR Random Glucose (60-115) mg/dL Calcium (8.4-10.2) mg/dL Urine Color Urine Appearance Urine pH (5.0-9.0) Ur Specific [place] (1.005-1.025) Urine Protein (Neg-Trace) mg/dL Urine Glucose (UA) (Negative) mg/dL Urine Ketones (Negative) mg/dL Urine Blood (Negative) Urine Nitrite (Negative) Ur Leukocyte Esterase (Negative) Influenza Type A (PCR) Cancelled NEGATIVE Influenza Type B (PCR) Cancelled NEGATIVE RSV RNA Qual (PCR) Cancelled NEGATIVE SARS-CoV-2 RNA (RT-PCR) Cancelled NEGATIVE Discharge Plan Discharge Clinical Impression: Benign paroxysmal positional vertigo Patient Disposition: Home, Self-Care Instructions: Benign Paroxysmal Positional Vertigo (ED) Additional Instructions: Your blood work was normal. Your symptoms and physical exam are consistent with benign positional vertigo which is dizziness with standing or turning your head. Take meclizine 25 mg pills, 1 pill 3 times a day for the next 3 days for dizziness then as needed for dizziness. This medication will make you sleepy. Do not drive or work while taking this medication. Follow-up with your doctor in 2 days. Please return to the emergency department if your symptoms get worse or if you develop any symptoms that are concerning to you. Prescriptions: New meclizine [Dramamine Less Drowsy] 25 mg tablet 25 mg PO TID PRN (Reason: dizziness) Qty: 20 0RF No Action loperamide-simethicone [Imodium Advanced] 2-125 mg Tablet 1 tab PO Q1H PRN (Reason: Loose Stool) Rx Instructions: do not exceed 4 tabs in 24 hrs doxycycline hyclate 100 mg capsule 100 mg PO BID 10 Days Qty: 20 0RF cephalexin 500 mg tablet 500 mg PO Q6H 10 Days Qty: 40 0RF
--- NOTE | 2022-06-28 22:31 | PC.NURSE ---
call was placed to gita to get pt a ride back home. ride is booked and gita will be arriving shortly
== END 2022-06-28 23:23 | disposition home or self-care (01) ==
PROVIDERS: Emergency Provider Emergency Medicine Emergency Medical Services; PCP Internal Medicine
DX: H81.10 Benign paroxysmal vertigo, unspecified ear (principal); Z20.822 Contact with and (suspected) exposure to COVID-19
CPT/HCPCS: 0241U; 36415; 80048; 81003; 85025; 99283

== ENCOUNTER 2022-07-06 17:18 | Emergency (ER) | payer OTHER, SELFPAY ==
--- NOTE | ~2022-07-06 | CT_ITS ---
EXAMINATION: CT HEAD WITHOUT CONTRAST CLINICAL INFORMATION: Vertigo COMPARISON: 05/22/2022 TECHNIQUE: Contiguous axial imaging was performed from the skull base to vertex without intravenous administration of contrast. This CT examination was performed using dose optimization techniques as appropriate, variously including the following: *Automated exposure control *Adjustment of mA and/or kV according to patient size (this includes techniques or standardized protocols for targeted exams where dose is matched to indication/reason for exam; i.e. extremities or head) *Use of iterative reconstruction technique DLP: 917 mGy-cm FINDINGS: There is no midline shift. There is no mass effect. There is no hemorrhage. The basal cisterns appear patent. The posterior fossa is grossly within normal limits. There is no extra-axial collection. The martinez-white matter is maintained.. Possible small area of decreased attenuation in the anterior limb of the internal capsule on the left. This may represent a small infarct. Partially visualized sinuses are grossly clear. CT/CT head/brain wo IV con IMPRESSION: Negative acute noncontrast CT of the brain.
--- NOTE | 2022-07-06 18:00 | ECG_ITS ---
Test Reason : DIZZINESS Blood Pressure : / mmHG Vent. Rate : 078 BPM Atrial Rate : 078 BPM P-R Int : 160 ms QRS Dur : 146 ms QT Int : 440 ms P-R-T Axes : 077 -42 096 degrees QTc Int : 501 ms Sinus rhythm with occasional Premature ventricular complexes Left axis deviation Left bundle branch block Abnormal ECG When compared with ECG of 22-MAY-2022 11:27, Premature ventricular complexes are now Present Nonspecific T wave abnormality no longer evident in Inferior leads Referred By: Generic ED Physician Electronically Signed By:AMBAR MELLO MD
[2022-07-06 18:19] VITALS: BP 126/60; PULSE 76; RESP 16; TEMP 36.1; O2SAT 98; BMI 20.9
[2022-07-06 18:30] LABS: MANUAL DIFF FLAG NO
[2022-07-06 18:32] LABS: Basophils Percent Auto 0.5 % (0-2); Eosinophils Absolute Auto 0.2 X10*3/uL (0.0-0.4); Eosinophils Percent Auto 3.5 % (0-4); Hematocrit 38.1 % (42.0-52.0); Hemoglobin 12.8 g/dl (14.0-18.0); Imm Gran Abs Auto 0.01 X10*3/uL (0.00-0.03); Imm Gran Pct Auto 0.2 % (0.0-0.4); Lymphocytes Absolute Auto 1.1 X10*3/uL (1.2-4.9); Lymphocytes Percent Auto 26.6 % (20-40); Mean Corpuscular HGB Conc 33.6 g/dl (31.0-36.0); Mean Corpuscular Hemoglobin 29.6 pg (27.0-33.0); Mean Corpuscular Volume 88.2 fL (80.0-98.0); Mean Platelet Volume 8.7 fL (9.4-12.4); Monocytes Absolute Auto 0.4 X10*3/uL (0.1-1.2); Monocytes Percent Auto 8.7 % (2-11); Neutrophils Absolute Auto 2.6 x10*3/uL (2.0-8.3); Neutrophils Percent Auto 60.5 % (45-73); Platelet Count 170 X10*3/uL (160-400); Red Blood Count 4.32 X10*6/uL (4.60-5.80); Red Cell Distribution Width 12.6 % (11.0-16.0); White Blood Count 4.3 X10*3/uL (4.8-10.8)
[2022-07-06 18:49] LABS: Alanine Aminotransferase 37 U/L (0-40); Albumin Level 4.2 g/dL (3.5-5.0); Alkaline Phosphatase 90 U/L (39-117); Anion Gap 16 (12-20); Aspartate Amino Transferase 28 U/L (5-37); Bilirubin Total 0.4 mg/dL (0.0-1.0); Blood Urea Nitrogen 16 mg/dL (9-16); Calcium 9.3 mg/dL (8.4-10.2); Carbon Dioxide 30 mmol/L (22-29); Chloride 104 mmol/L (96-108); Creatinine Clr Calc Pharmacy 59.9; Estimated Glomerular Filt Rate 58; Glucose Random 102 mg/dL (60-115); Potassium 4.6 mmol/L (3.3-5.1); Sodium 145 mmol/L (135-145); Total Protein 7.1 g/dL (6.5-8.0)
[2022-07-06 18:53] LABS: Troponin-I High Sensitivity < 3.5 ng/L (<3.5-35.0)
[2022-07-06] MEDS: LORazepam 1 MG TABLET PO (21:36)
--- NOTE | 2022-07-06 21:55 | ED.DIZZY ---
HPI - Dizziness General Chief Complaint: Dizziness Stated Complaint: dizziness Time Seen by Provider: 07/06/22 21:26 Source: patient Mode of arrival: ambulatory Limitations: no limitations History of Present Illness HPI Narrative: 56-year-old male history of intellectual disability, and paroxysmal benign positional vertigo, patient came in today for increase vertigo been feeling neck on and off today, feels like the room is spinning, symptoms is worsening with changing position from sitting to standing or turning head right and left. Patient had this symptoms for the past 3 years, patient has been taking meclizine for that, patient complained of no neurological deficit. Overall patient somewhat is a limited historian. Related Data Home Medications Medication Instructions Recorded Confirmed loperamide-simethicone 2 mg-125 mg 1 tab PO Q1H PRN Loose Stool 02/15/22 02/15/22 tablet Previous Rx's Medication Instructions Recorded cephalexin 500 mg tablet 500 mg PO Q6H 10 days #40 tabs 02/26/22 doxycycline hyclate 100 mg capsule 100 mg PO BID 10 days #20 caps 02/26/22 meclizine 25 mg tablet (Dramamine 25 mg PO TID PRN dizziness #20 tabs 06/28/22 Less Drowsy) Allergies Allergy/AdvReac Type Severity Reaction Status Date / Time No Known Allergies Allergy Verified 02/26/22 17:04 Review of Systems Review of Systems: All other systems are reviewed and are negative Constitutional: Reports as per HPI and Reports no additional constitutional complaints Eyes: Reports as per HPI and Reports no additional eye complaints Reports system reviewed and no additional complaints, except as documented Cardiovascular: Reports as per HPI and Reports no additional cardiovascular complaints Respiratory: Reports as per HPI and Reports no additional respiratory complaints Gastrointestinal: Reports as per HPI and Reports no additional gastrointestinal complaints Genitourinary: Reports no additional female genitourinary complaints Musculoskeletal: Reports no additional musculoskeletal complaints Skin/Breast: Reports system reviewed and no additional complaints, except as docu Psychiatric: Reports no additional psychiatric complaints Endocrine: Reports no additional endocrine complaints Hematologic/Lymphatic: Reports no additional hematologic/lymphatic complaints Allergic/Immunologic: Reports no additional allergic/immunologic complaints Reports system reviewed and no additional complaints, except as documented and Reports Abnormal speech present [facility] Past Medical History Medical History History of COVID-19 Intellectual disability Renal calculi Surgical History H/O colonoscopy Hx of cystoscopy Hx of lithotripsy Social History Social History Patient Tobacco Use Status: Never used Tobacco Advance Directives: No Physical Exam Vital Signs: Vital Signs: Last Vital Signs Temp 96.9 F 07/06/22 18:19 Pulse 76 07/06/22 18:19 Resp 16 07/06/22 18:19 BP 126/60 07/06/22 18:19 Pulse Ox 98 07/06/22 18:19 O2 Del Method 07/06/22 18:19 BMI result Body Mass Index 20.9 Vital signs have been reviewed as appeared to be correct. Blood pressure normal. Heart rate normal. Respiration rate normal. Temperature normal. Oxygen saturation normal. Appearance: Alert. Oriented X3. No acute distress. Head: Normal external exam. Normocephalic. Atraumatic. No Duong signs noted. No raccoon eyes noted Eyes: PERRLA. EOMI. Conjunctiva and sclera normal. Eyelids normal. ENT: TM's Normal. Pharynx normal. Uvula midline. Moist mucous membranes. No trismus noted. No drooling noted. No muffled voice noted. Neck: Normal inspection. Neck supple. FROM. No adenopathy. Thyroid Normal. No meningeal signs. No neck mass noted. CVS: Normal heart rate and rhythm. Heart sound normal. No murmurs noted. Pulses normal throughout. Respiratory: No respiratory distress. Painless inspiration. Breath sounds normal. No wheezes/rales/rhonchi noted. Chest nontender. No accessory muscle usage noted or decreased air movement noted. Abdomen: Soft and nontender. Bowel sounds normal in all 4 quadrants. No distention noted. No organomegaly noted. No visible injury noted. Back: No CVA tenderness. Full range of motion noted. Skin: Skin warm and dry. Normal skin color. Normal skin turgor. No rashes/lesions/lacerations noted. Extremities: No lower extremity edema. Extremities exhibit normal range of motion. Extremities nontender. Neuro: Oriented X 3. Cranial nerve exam: II-XII are grossly intact No motor deficit. No sensory deficit. Reflexes normal. Cerebellar exam within normal colon no [id number] dysmetria, able to ambulate with steady gait. Course Course Course Narrative: 56-year-old male with intellectual disability presented for evaluation of vertigo, patient with significant history of benign paroxysmal vertigo today's neuro exam suggesting peripheral positional vertigo with a normal cerebellar exam normal CT of the head., patient had similar presentation to the ED in the past with similar presentation, symptoms partially improved tonight with Ativan and meclizine, patient is walking steadily in the emergency department will discharge to follow-up with PCP. Medications Administered Discontinued Medications Generic Name Dose Route Start Last Admin Trade Name Freq PRN Reason Stop Dose Admin Lorazepam 1 mg 07/06/22 21:30 07/06/22 21:36 Lorazepam 1 Mg Tablet PO 07/06/22 21:31 1 mg ONCE ONE Administration MDM - Dizziness Medical Records Attestation: I reviewed the patient's medical records. Lab Data Attestation: I reviewed the patient's lab results. Result diagrams: 07/06/22 18:25 07/06/22 18:25 Labs: Lab Results 07/06/22 07/06/22 07/06/22 Range/Units 18:25 18:25 18:25 WBC 4.3 L (4.8-10.8) X10*3/uL RBC 4.32 L (4.60-5.80) X10*6/uL Hgb 12.8 L (14.0-18.0) g/dl Hct 38.1 L (42.0-52.0) % MCV 88.2 (80.0-98.0) fL MCH 29.6 (27.0-33.0) pg MCHC 33.6 (31.0-36.0) g/dl RDW 12.6 (11.0-16.0) % Plt Count 170 (160-400) X10*3/uL MPV 8.7 L (9.4-12.4) fL Immature Gran % (Auto) 0.2 (0.0-0.4) % Neut % (Auto) 60.5 (45-73) % Lymph % (Auto) 26.6 (20-40) % [place] % (Auto) 8.7 (2-11) % Eos % (Auto) 3.5 (0-4) % Baso % (Auto) 0.5 (0-2) % Lymph # (Auto) 1.1 L (1.2-4.9) X10*3/uL [place] # (Auto) 0.4 (0.1-1.2) X10*3/uL Eos # (Auto) 0.2 (0.0-0.4) X10*3/uL Baso # (Auto) 0.0 (0.0-0.2) X10*3/uL Abs Immat Gran (auto) 0.01 (0.00-0.03) X10*3/uL Absolute Neuts (auto) 2.6 (2.0-8.3) x10*3/uL Absolute Nucleated RBC 0.000 (0.0-0.012) X10*3/uL Nucleated RBC % (auto) 0.0 (0.0-0.2) /100WBC Sodium 145 (135-145) mmol/L Potassium 4.6 D (3.3-5.1) mmol/L Chloride 104 (96-108) mmol/L Carbon Dioxide 30 H (22-29) mmol/L Anion Gap 16 (12-20) BUN 16 (9-16) mg/dL Creatinine 1.29 (0.5-1.4) mg/dL Estim Creat Clear Calc 59.9 Estimated GFR 58 Random Glucose 102 (60-115) mg/dL Calcium 9.3 (8.4-10.2) mg/dL Total Bilirubin 0.4 (0.0-1.0) mg/dL AST 28 D (5-37) U/L ALT 37 (0-40) U/L Alkaline Phosphatase 90 D (39-117) U/L Troponin I High Sens < 3.5 (<3.5-35.0) ng/L Total Protein 7.1 (6.5-8.0) g/dL Albumin 4.2 (3.5-5.0) g/dL Imaging Data Head CT: Attestation: I personally reviewed and interpreted this imaging study as follows: Radiologist's impression: No acute intracranial pathology. ECG Data Attestation: I personally reviewed and interpreted this ECG as follows: Interpretation: Normal sinus rhythm with occasional premature ventricular complex, left axis deviation, LBBB. No change from previous EKG. Discharge Plan Discharge Clinical Impression: Benign paroxysmal positional vertigo Patient Disposition: Home, Self-Care Instructions: Benign Paroxysmal Positional Vertigo (ED) Prescriptions: No Action meclizine [Dramamine Less Drowsy] 25 mg tablet 25 mg PO TID PRN (Reason: dizziness) Qty: 20 0RF loperamide-simethicone [Imodium Advanced] 2-125 mg Tablet 1 tab PO Q1H PRN (Reason: Loose Stool) Rx Instructions: do not exceed 4 tabs in 24 hrs doxycycline hyclate 100 mg capsule 100 mg PO BID 10 Days Qty: 20 0RF cephalexin 500 mg tablet 500 mg PO Q6H 10 Days Qty: 40 0RF Referrals: Mitul Mares MD [Primary Care Provider] -
[2022-07-06] MEDS: Meclizine HCl 25 MG TABLET PO (23:25)
[2022-07-06 23:54] VITALS: BP 106/70; PULSE 65; RESP 16; TEMP 36.7; O2SAT 100
[2022-07-07 04:11] VITALS: RESP 18
== END 2022-07-07 08:30 | disposition home or self-care (01) ==
PROVIDERS: Emergency Provider Emergency Medicine; PCP Internal Medicine
DX: H81.12 Benign paroxysmal vertigo, left ear (principal); Z79.899 Other long term (current) drug therapy
CPT/HCPCS: 36415; 70450; 80053; 84484; 85025; 93005; 99284

== ENCOUNTER 2022-07-18 11:02 | Outpatient (RCR) | payer MEDICARE, MEDICAID, SELFPAY ==
[2022-07-18 11:10] VITALS: BP 138/78; PULSE 72
--- NOTE | 2022-07-18 12:03 | MHC.PT.EP ---
[facility] [place] [facility] [place] [facility] [place] [facility] [address] Abraham Tracey [address] [phone] F: [phone] F: [phone] F: [phone] F: [phone] Physical Therapy Plan of Care Date of Evaluation: Date of Surgery: NA Diagnosis: Vertigo of central origin Assessment: Stevan is a 56 year old male who is referred to PT for vertigo of central origin . He reports of having symptoms of vertigo for several years. He was unable state what position brings on his symptoms and how long they last for. He was also unable to describe his symptoms as well. Kostas had a hard time following commands for visual tracking, and saccades. He refused to close his eyes as a part of balance testing and with dynamic balance testing he could not follow commands. Functionally he appears to be stable and does not appear to have any vestibular hypofunction. Even if Stevan had symptoms of hypofunction he is not a good candidate for PT as he is unable to follow commands. He was negative for nystagmus in B call pike and B roll test but reported of feeling dizzy in these positions which did not change in intensity. He has had no LOB or impaired gait. Symptoms of dizziness could be secondary to low blood sugars or low BP as pt's case hardener states that he does not eat much until reminded. He would benefit from further investigations for this. Frequency and Duration: The patient will be seen Short Term Goals: NO PT indicated [employer] Goals: Treatment Plan: Modalities to reduce pain, spasms and effusion. Manual therapy to restore motion and function. Therapeutic exercise to improve strength and flexibility. Neuromuscular re-education for posture and balance. Therapeutic activities to return to functional activities of daily living. Electronically signed by: Yady Tadeo PT DPT Please sign and return to therapist. Thank you for your referral.
--- NOTE | 2022-09-06 10:47 | MHC.PT.DC ---
[facility] [place] Office [place] Office [place] Office [address] [phone] F: [phone] F: [phone] F: [phone] F: [phone] Physical Therapy Discharge Report Diagnosis: Vertigo of central origin Date of Surgery: NA Date of Evaluation: 07/18/22 Date of Discharge: 09/06/22 Treatments to Date: 1 Cancellations to Date: 0 No Shows to Date: Discharge Status: Recommend MD Follow-up Discharge Summary: Stevan did not have symptoms of positional vertigo during the evaluation. He was negative for BPPV. Unable to assess presence of vestibular hypofunction as he was unable to follow commands for balance assessment. He is therefore being d/c from PT at this time. Electronically signed by: Yady Tadeo PT DPT Please sign and return to therapist. Thank you for your referral.
== END 2022-09-06 10:47 | disposition home or self-care (01) ==
LOC: HO.PT 11:02
PROVIDERS: PCP Internal Medicine; Visit Provider Internal Medicine
DX: H81.4 Vertigo of central origin (principal)
CPT/HCPCS: 97110; 97162

== ENCOUNTER 2022-07-31 09:29 | Emergency (ER) | payer MEDICARE, MEDICAID, SELFPAY ==
--- NOTE | 2022-07-31 | ECG_ITS ---
Test Reason : DYSRHYTHNIA Blood Pressure : / mmHG Vent. Rate : 095 BPM Atrial Rate : 095 BPM P-R Int : 174 ms QRS Dur : 142 ms QT Int : 388 ms P-R-T Axes : 077 -37 083 degrees QTc Int : 487 ms Normal sinus rhythm Possible Left atrial enlargement Left axis deviation Left bundle branch block Abnormal ECG When compared with ECG of 06-JUL-2022 19:43, Premature ventricular complexes are no longer Present T wave inversion less evident in Lateral leads Referred By: Generic ED Physician Electronically Signed By:RITESH HARRY MD
[2022-07-31 09:33] VITALS: BP 121/73; PULSE 111; RESP 16; TEMP 36.1; O2SAT 97
[2022-07-31 09:50] VITALS: BP 126/76; PULSE 104; RESP 16; O2SAT 96
--- NOTE | 2022-07-31 10:53 | ED_ITS ---
HPI - Dizziness General Chief Complaint: Dizziness Stated Complaint: Dizziness Time Seen by Provider: 07/31/22 10:10 Source: patient and EMS Mode of arrival: EMS History of Present Illness HPI Narrative: 56-year-old male with past medical history of intellectual disability and vertigo presents to the emergency department today with dizziness. The patient states he normally takes meclizine for this dizziness, but did not take any tod ay. Dizziness was accompanied by a cough which started yesterday. The patient states this dizziness he is having today is exactly the same as Dizziness he has had previously. MD elicited complaint: dizziness and vertigo Onset (ago): day(s) Timing: gradual onset Severity: moderate Description: sense of movement and room spinning History of similar symptoms: Yes Exacerbating factors: nothing Relieving factors: other ( nothing tried) Associated symptoms: denies other symptoms Related Data Home Medications Medication Instructions Recorded Confirmed loperamide-simethicone 2 mg-125 mg 1 tab PO Q1H PRN Loose Stool 02/15/22 02/15/22 tablet Previous Rx's Medication Instructions Recorded cephalexin 500 mg tablet 500 mg PO Q6H 10 days #40 tabs 02/26/22 doxycycline hyclate 100 mg capsule 100 mg PO BID 10 days #20 caps 02/26/22 meclizine 25 mg tablet (Dramamine 25 mg PO TID PRN dizziness #20 tabs 06/28/22 Less Drowsy) meclizine 25 mg tablet 25 mg PO TID PRN dizziness or 07/31/22 vertigo #30 tabs Allergies Allergy/AdvReac Type Severity Reaction Status Date / Time No Known Allergies Allergy Verified 02/26/22 17:04 Review of Systems Review of Systems: Constitutional: Denies chills and Denies fever(s) Eyes: Denies blurry vision and Denies diplopia ENT: Denies nasal congestion and Denies sore throat Cardiovascular: Denies chest pain, Denies syncope and Denies rapid heart rate Respiratory: admits to cough and Denies wheezing Gastrointestinal: Denies diarrhea, Denies nausea and Denies vomiting Genitourinary: No vaginal bleeding. No discharge. Musculoskeletal: Denies back pain and Denies myalgias Neuro: Denies numbness, tingling, Denies syncope Allergic/Immunologic: Denies wheezing, rash Neurologic: Denies Abnormal speech present and Denies Sensory deficit (Neuro) [facility] Past Medical History Medical History History of COVID-19 Intellectual disability Renal calculi Surgical History H/O colonoscopy Hx of cystoscopy Hx of lithotripsy Social History Social History Patient Tobacco Use Status: Never used Tobacco Physical Exam Vital Signs: Vital Signs: Last Vital Signs Temp 98.4 F 07/31/22 11:15 Pulse 79 07/31/22 12:50 Resp 25 H 07/31/22 12:50 BP 123/63 07/31/22 12:50 Pulse Ox 97 07/31/22 12:50 O2 Del Method Room Air 07/31/22 12:50 BMI result Body Mass Index 20.0 vital signs normal except pulse slightly elevated at 104 Const: General: cooperative, healthy appearing, comfortable and no acute distress Orientation/consciousness: patient oriented x3 HEENT: Head: Yes normal to inspection, Yes normocephalic and Yes atraumatic Ears: external ears normal General nose exam: Normal external nose present Face and sinus: Yes normal facial exam Mouth: Normal oral and palatal mucosa present Eyes: Conjunctivae: conjunctivae normal Sclerae: sclerae normal Pupils: Equal, round and reactive pupils present EOM: EOMs intact bilaterally Neck: Neck: Yes normal visual inspection, Yes full ROM and Yes no lymphadenopathy Resp: Effort & Inspection: normal respiratory effort, no cough, respiratory effort not decreased and not labored Cardio: Rate: regular rate Rhythm: regular rhythm GI: Inspection: Yes normal to inspection and No distended Palpation (GI): n ontender Back/Spine/Pelvis: Cervical Spine: normal cervical lordosis and cervical ROM normal Thoracic/Lumbar Spine: thoracic and lumbar spine normal to inspection Skin: General skin exam: no rashes or lesions noted, no jaundice and no pallor Neuro: General: patient oriented x3 and CN's II-XI intact bilaterally Cranial nerves: Yes Equal, round and reactive pupils present Speech: No Abnormal speech present Motor exam (neuro): 5/5 motor strength present throughout Sensory Exam: No Sensory deficit (Neuro) Extrem: General: Yes normal to inspection and Yes no clubbing, cyanosis or edema Medications Administered Discontinued Medications Generic Name Dose Route Start Last Admin Trade Name Freq PRN Reason Stop Dose Admin Meclizine HCl 25 mg 07/31/22 11:14 07/31/22 11:48 Meclizine Hcl 25 Mg Tablet PO 07/31/22 11:15 25 mg ONCE ONE Administration MDM - Dizziness MDM Narrative Medical decision making narrative: 56-year-old male with past medical history of vertigo presents with vertigo. The patient did not take his meclizine this morning. He was given meclizine here in the emergency department with good effect. An EKG was performed which is documented below. He will be discharged home to follow up with his doctor tomorrow and encouraged not to miss taking his meclizine. Medical Records Attestation: I reviewed the patient's medical records. ECG Data Attestation: I personally reviewed and interpreted this ECG as follows: ECG interpretation date: 07/31/22 ECG interpretation time: 10:10 Prior ECG tracings: not available for review Interpretation: normal sinus rhythm at 95, normal intervals. QRS duration slightly widened secondary to left bundle branch block, LAD. Non spec ST-T changes, no sig change from July 06, 2022 Discharge Plan Discharge Clinical Impression: Benign paroxysmal positional vertigo Patient Disposition: Home, Self-Care Instructions: Vertigo (ED) Additional Instructions: Continue to take your meclizine as needed. Prescriptions: New meclizine 25 mg tablet 25 mg PO TID PRN (Reason: dizziness or vertigo) Qty: 30 0RF No Action meclizine [Dramamine Less Drowsy] 25 mg tablet 25 mg PO TID PRN (Reason: dizziness) Qty: 20 0RF loperamide-simethicone [Imodium Advanced] 2-125 mg Tablet 1 tab PO Q1H PRN (Reason: Loose Stool) Rx Instructions: do not exceed 4 tabs in 24 hrs doxycycline hyclate 100 mg capsule 100 mg PO BID 10 Days Qty: 20 0RF cephalexin 500 mg tablet 500 mg PO Q6H 10 Days Qty: 40 0RF Interventions: ED Discharge Assessment Last Done: 07/31/22 14:15 Discharge Date/Time: 07/31/22 14:15
[2022-07-31 11:15] VITALS: BP 117/63; PULSE 77; RESP 23; TEMP 36.9; O2SAT 98
[2022-07-31] MEDS: Meclizine HCl 25 MG TABLET PO (11:48)
--- NOTE | 2022-07-31 11:50 | PC.NURSE ---
pt. alert and oriented. dysrythmia on monitor and abnormal ekg, provider aware. other VS wnl.
[2022-07-31 12:50] VITALS: BP 123/63; PULSE 79; RESP 25; O2SAT 97
== END 2022-07-31 14:15 | disposition home or self-care (01) ==
PROVIDERS: Emergency Provider Emergency Medicine; PCP Internal Medicine
DX: R42 Dizziness and giddiness (principal); Z79.899 Other long term (current) drug therapy
CPT/HCPCS: 93005; 99284

== ENCOUNTER 2022-08-18 11:08 | Outpatient (REF) | payer MEDICARE, SELFPAY ==
--- NOTE | ~2022-08-18 | MR_ITS ---
EXAMINATION: MR BRAIN WITHOUT CONTRAST CLINICAL INFORMATION: Persistent dizziness COMPARISON: CT head without contrast 07/06/2022 TECHNIQUE: Multiplanar multisequence MR imaging of the brain was obtained without intravenous contrast. FINDINGS: There is no acute infarct on diffusion-weighted imaging. There is no intracranial hemorrhage on iron-sensitive imaging. No extra-axial collection or mass effect/herniation. Normal parenchymal signal characteristics. No hydrocephalus. The ventricles are normal in morphology and size. The major flow voids at the skull base are preserved. The midline structures are normal. The cerebellar tonsils are normally positioned. The craniocervical junction is normal. Marrow signal is within normal limits. The visualized soft tissues are without significant abnormality. No signal abnormality within the paranasal sinuses or within the mastoid air cells. MR/MR head/brain wo con IMPRESSION: Unremarkable noncontrast MRI of the brain.
== END 2022-08-18 11:09 | disposition home or self-care (01) ==
LOC: HO.MRI 11:08
PROVIDERS: Visit Provider Internal Medicine
DX: R42 Dizziness and giddiness (principal)
CPT/HCPCS: 70551

== ENCOUNTER 2022-12-20 09:54 | Outpatient (REF) | payer MEDICARE, SELFPAY ==
[2022-12-20 10:42] LABS: MANUAL DIFF FLAG NO
[2022-12-20 10:49] LABS: Basophils Percent Auto 0.4 % (0-2); Eosinophils Absolute Auto 0.1 X10*3/uL (0.0-0.4); Eosinophils Percent Auto 1.3 % (0-4); Hematocrit 39.3 % (42.0-52.0); Hemoglobin 13.3 g/dl (14.0-18.0); Imm Gran Abs Auto 0.01 X10*3/uL (0.00-0.03); Imm Gran Pct Auto 0.2 % (0.0-0.4); Lymphocytes Percent Auto 22.5 % (20-40); Mean Corpuscular HGB Conc 33.8 g/dl (31.0-36.0); Mean Corpuscular Hemoglobin 29.1 pg (27.0-33.0); Mean Platelet Volume 8.9 fL (9.4-12.4); Monocytes Absolute Auto 0.3 X10*3/uL (0.1-1.2); Monocytes Percent Auto 6.6 % (2-11); Neutrophils Absolute Auto 3.2 x10*3/uL (2.0-8.3); Platelet Count 246 X10*3/uL (160-400); Red Blood Count 4.57 X10*6/uL (4.60-5.80); Red Cell Distribution Width 12.4 % (11.0-16.0); White Blood Count 4.6 X10*3/uL (4.8-10.8)
[2022-12-20 12:25] LABS: Alanine Aminotransferase 19 U/L (0-40); Alkaline Phosphatase 80 U/L (39-117); Anion Gap 11 (12-20); Aspartate Amino Transferase 17 U/L (5-37); Bilirubin Total 0.9 mg/dL (0.0-1.0); Blood Urea Nitrogen 17 mg/dL (9-16); Calcium 9.2 mg/dL (8.4-10.2); Carbon Dioxide 28 mmol/L (22-29); Chloride 110 mmol/L (96-108); Cholesterol 169 mg/dL; Estimated Glomerular Filt Rate 58; Glucose Fasting 95 mg/dL (60-99); HDL Cholesterol 48 mg/dL; LDL Cholesterol Calculated 111 mg/dl; Potassium 4.3 mmol/L (3.3-5.1); Sodium 145 mmol/L (135-145); Total Protein 6.8 g/dL (6.5-8.0); Triglycerides 53 mg/dL
[2022-12-20 12:47] LABS: Prostate Specific Antigen 0.76 ng/mL (<0.05-4.0)
[2022-12-22 20:43] LABS: TS Negative Control Passed; TS Panel A 0; TS Panel B 0; TS Positive Control Passed; TSpotTB Negative (Negative)
== END 2022-12-20 09:55 | disposition home or self-care (01) ==
LOC: HO.10HDL 09:54
PROVIDERS: Visit Provider Internal Medicine
DX: Z00.00 Encounter for general adult medical examination without abnormal findings (principal); Z12.5 Encounter for screening for malignant neoplasm of prostate; Z11.1 Encounter for screening for respiratory tuberculosis; K58.9 Irritable bowel syndrome, unspecified; F79 Unspecified intellectual disabilities; R63.4 Abnormal weight loss
CPT/HCPCS: 36415; 80053; 80061; 84153; 85025; 86481

== ENCOUNTER 2023-05-23 07:47 | Outpatient (AMB) | payer MEDICARE, SELFPAY ==
--- NOTE | 2023-05-23 08:08 | A.OFFVIS_ITS ---
Intake Vital Signs 05/23/23 08:18 Height 5 ft 10 in Weight 148 lb 6 oz BMI 21.3 BP 106/68 Blood Pressure Location Lt brachial Position Sitting Pulse 79 Pulse Source Pulse Oximeter Pulse Oximetry (%) 97 Oxygen Delivery Method Room Air Intake Visit Reasons: ENP-Memory Changes-conffirmed Intake Note: NPV for memory changes C T Tech Required: No Allergies lactose intollerance Adverse Reaction (Severe, Uncoded 05/23/23 08:10) Diarreha Medication List - Last Reconciled 05/23/23 by Tammy Santos MD buspirone 15 mg PO BID diphenoxylate-atropine 2.5-0.025 mg 1 tab PO BID PRN hydroxyzine HCl 50 mg PO BID lactobacillus combination no.4 (Probiotic) 3,000 mmu cells PO DAILY meclizine (Dramamine Less Drowsy) 25 mg PO TID PRN meclizine 25 mg PO ONCE HPI HPI Comments History of Present Illness Details 57y/o male with mild intellectual disabi yahir comes for evaluation of cognitive issues. He is accompanied by his switchboard wire worker helper Sybil. History is unclear as the switchboard wire worker helper recently started with him He reports short term memory issues since his COVID infection about 1 year ago.He frequently repeats himself, forgets his schedule, repeats questions, need s prompting for eating slowly etc. He lives on his own but independent in all ADLs.He has a nurse that administers his medications. He forgets conversations. 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 yesterday instead of taking his regular transportation he got on a vehicle with an unknown person and did not get to work. He called his worker to pick him up but was unable to tell her where he was. [facility] Medical History (Updated 05/23/23 @ 08:50 by Tammy Santos MD) Cognitive impairment Intellectual disability History of COVID-19 Renal calculi Surgical History Hx of lithotripsy Hx of cystoscopy H/O colonoscopy Social History Alcohol intake: never Patient Tobacco Use Status: Never used Tobacco Review of Systems Const Reports fatigue, Reports lethargy, Reports malaise, Reports weakness and Reports weight loss Eyes Reports diplopia ENT Reports dysphagia, Reports neck pain and Reports sinus pain Card Reports irregular heart rhythm GI Reports abdominal pain, Reports dysphagia and Reports diarrhea Reports urinary frequency Musc Reports neck pain, Reports numbness and Reports tingling Neuro Reports confusion, Reports memory loss, Reports numbness, Reports tingling and Reports weakness Psych Denies anxiety, Reports confusion, Reports depression and Reports memory loss Endo Reports fatigue Physical Exam Vital Signs: Last Vital Signs Pulse 79 05/23/23 08:18 BP 106/68 05/23/23 08:18 Pulse Ox 97 05/23/23 08:18 Oxygen Delivery Method Room Air 05/23/23 08:18 BMI result Body Mass Index 21.3 Const General: cooperative, healthy appearing, comfortable and confusion Nutritional Appearance: average body habitus Orientation/consciousness: confusion Eyes Pupils: Equal, round and reactive pupils present Neuro General: tone normal, moves all extremities, no focal motor deficits and confusion Cranial nerves: Yes Equal, round and reactive pupils present, Yes Bilaterally intact EOM present, Yes Nystagmus not present, Yes Normal facial strength present and Yes Midline tongue present Cognition (Neuro): abnormal cognition Gait exam (Neuro): Antalgic gait present Motor exam (neuro): 5/5 motor strength present throughout and Normal motor muscle tone present throughout Deep tendon reflexes (DTR's): Right triceps reflex intensity grade: 1+, Left triceps reflex intensity grade: 1+, Rt Biceps (C5, C6): 1+, Left biceps reflex intensity grade: 1+, Right brachioradialis reflex intensity grade: 1+, Left brachioradialis reflex intensity grade: 1+, Right patellar reflex intensity grade: 1+ and Left patellar reflex intensity grade: 1+ Coordination: [id number] test normal Orientation What is the (year) (season) (date) (day) (month)?: year, season, date and day Where are we (state) (county) (town or city) (hospital) (floor)?: state, town or city and hospital/clinic Registration Name of 3 unrelated objects clearly and slowly, then ask patient to repeat all 3 of them. (1st repeat determines score. Make sure they can repeat all three): object 1, object 2 and object 3 Recall Ask patient to repeat the 3 items from question #3.: object 1, object 2 and object 3 Language Show patient a wristwatch & ask what it is. Repeat for pencil.: watch and pencil Ask the patient to repeat the phrase 'No ifs, ands, or buts' after you.: incorrect Ask the patient to 'take a piece of paper with their right hand' 'fold paper in half' 'place paper on floor': take paper in right hand Score Score: 16 Assessment & Plan Assessment & Plan (1) Cognitive impairment: Comment: dementia vs mild Cognitive impairment Code(s): R41.89 - Other symptoms and signs involving cognitive functions and awareness Plan MRI brain , EEG to evaluate check TSH ESR Vit B 12levels\ Cognitive therapy Due to hsi cognitive diosrder patient needs transportation to and from work . Orders: Orders MR head/brain wo con Today R41.89 - Other symptoms and signs involving cognitive functions and awareness EEG electroencephalogram Today R41.89 - Other symptoms and signs involving cognitive functions and awareness OT Evaluation and Treatment Today R41.89 - Other symptoms and signs involving cognitive functions and awareness Medications: Changed From meclizine 25 mg PO TID PRN 30 tabs 0RF dizziness or vertigo To meclizine 25 mg PO ONCE dizziness or vertigo Coding Level of Care Code New Pt Level 4 (04096) Diagnoses Cognitive impairment R41.89
[2023-05-23 08:18] VITALS: BP 106/68; PULSE 79; O2SAT 97; BMI 21.3
== END 2023-05-23 08:48 | disposition home or self-care (01) ==
PROVIDERS: Visit Provider Psychiatry & Neurology Neurology
DX: R41.89 Other symptoms and signs involving cognitive functions and awareness (principal)
CPT/HCPCS: 99204

== ENCOUNTER → 2023-05-23 07:47 | Outpatient (BNVA) | payer MEDICARE, SELFPAY | PROVIDERS: Visit Provider Psychiatry & Neurology Neurology ==

== ENCOUNTER 2023-06-08 13:03 | Outpatient (REF) | payer MEDICARE, SELFPAY ==
--- NOTE | 2023-06-08 15:03 | EEG_ITS ---
This is a 16 channel EEG with an EKG lead. The patient is reported awake during the tracing. Background EEG rhythm is low amplitude fast with no obvious asymmetry or paroxysmal tendency. Photic stimulation does not produce any significant abnormality. Hyperventilation is not performed. Cardiac lead does not reveal any significant abnormality. No sharp wave spikes or paroxysmal tendency noted. IMPRESSION: Unremarkable EEG. MD LA Bear/MELISSA / [id number]
== END 2023-06-08 13:04 | disposition home or self-care (01) ==
LOC: HO.NEURO 13:03
PROVIDERS: PCP Internal Medicine; Visit Provider Psychiatry & Neurology Neurology
DX: R41.89 Other symptoms and signs involving cognitive functions and awareness (principal)
CPT/HCPCS: 95816

== ENCOUNTER 2023-07-06 14:50 | Outpatient (REF) | payer MEDICARE, SELFPAY ==
[2023-07-06 15:09] LABS: MANUAL DIFF FLAG NO
[2023-07-06 15:16] LABS: Basophils Percent Auto 0.6 % (0-2); Eosinophils Absolute Auto 0.1 X10*3/uL (0.0-0.4); Eosinophils Percent Auto 1.8 % (0-4); Hematocrit 37.1 % (42.0-52.0); Hemoglobin 12.1 g/dl (14.0-18.0); Imm Gran Abs Auto 0.02 X10*3/uL (0.00-0.03); Imm Gran Pct Auto 0.4 % (0.0-0.4); Lymphocytes Absolute Auto 0.8 X10*3/uL (1.2-4.9); Lymphocytes Percent Auto 16.2 % (20-40); Mean Corpuscular HGB Conc 32.6 g/dl (31.0-36.0); Mean Corpuscular Hemoglobin 27.6 pg (27.0-33.0); Mean Corpuscular Volume 84.7 fL (80.0-98.0); Mean Platelet Volume 8.2 fL (9.4-12.4); Monocytes Absolute Auto 0.5 X10*3/uL (0.1-1.2); Monocytes Percent Auto 9.7 % (2-11); Neutrophils Absolute Auto 3.6 x10*3/uL (2.0-8.3); Neutrophils Percent Auto 71.3 % (45-73); Platelet Count 178 X10*3/uL (160-400); Red Blood Count 4.38 X10*6/uL (4.60-5.80); Red Cell Distribution Width 12.9 % (11.0-16.0); White Blood Count 5.1 X10*3/uL (4.8-10.8)
[2023-07-06 15:41] LABS: Alanine Aminotransferase 21 U/L (0-40); Albumin Level 4.2 g/dL (3.5-5.0); Alkaline Phosphatase 94 U/L (39-117); Anion Gap 11 (12-20); Aspartate Amino Transferase 17 U/L (5-37); Bilirubin Total 0.5 mg/dL (0.0-1.0); Blood Urea Nitrogen 26 mg/dL (9-16); Calcium 9.4 mg/dL (8.4-10.2); Carbon Dioxide 32 mmol/L (22-29); Chloride 107 mmol/L (96-108); Estimated Glomerular Filt Rate 57; Glucose Random 90 mg/dL (60-115); Potassium 4.7 mmol/L (3.3-5.1); Sodium 145 mmol/L (135-145); Total Protein 7.4 g/dL (6.5-8.0)
[2023-07-08 21:24] LABS: TS Negative Control Passed; TS Panel A 0; TS Panel B 0; TS Positive Control Passed; TSpotTB Negative (Negative)
== END 2023-07-06 14:51 | disposition home or self-care (01) ==
LOC: HO.LAB 14:50
PROVIDERS: PCP Internal Medicine; Visit Provider Internal Medicine
DX: Z11.1 Encounter for screening for respiratory tuberculosis (principal); N18.9 Chronic kidney disease, unspecified; K58.9 Irritable bowel syndrome, unspecified; R42 Dizziness and giddiness
CPT/HCPCS: 36415; 80053; 85025; 86481

== ENCOUNTER 2023-10-23 12:49 | Outpatient (RCR) | payer MEDICARE, SELFPAY ==
--- NOTE | 2023-11-20 18:00 | MHC.SP.ADU ---
Referring provider: Tammy Santos MD Reason for Referral: Other s/s involving cognitive functions and awareness (R41.89) Type of Treatment: 53739 Evaluation Speech Sound Production WITH Language Date of Plan of Treatment: 10/23/23 Onset of Symptoms/Illness: 10/23/23 Date Treatment Started: 10/23/23 Medical Diagnosis: Other s/s involving cognitive functions and awareness (R41.89) Primary Speech Language Diagnosis: R41.841 Cognitive communication disorder History Stephen is a pleasant 57 year-old male with PMH of Cognitive impairment, Intellectual disability, History of COVID-19, Renal calculi, and Irritable bowel syndrome. He lives and works on his own with assistance from his Family and community programs. His sister reports he will frequently ask for reminders about when his appointments are, or when his visiting nurses will be arriving. He is socially engaged. His Sister expresses concern over his sleeping habits, as well and his limited food repertoire. He has a special interest in fires and firemen. Medical History: Recent Hospitalizations: No Respiratory Needs: Room Air Patient Orientation: Person Only Social History: Employment Status: [employer] Employed Highest level of education obtained: Completed High School/GED Current Living Situation: Assisted living. Past Speech Language Therapy: Unknown Other Therapies Seen in Current Calendar Year: Speech Therapy Swallowing History: Dysphagia Specific: Within Functional Limits Reported Speech, Language, Cognition difficulties: Attention Memory Cognition Problem Solving Assessment Speech Production: Nonfluent Clinical Impression: Intact Informal Voice Assessment: Voice Loudness: Normal Voice Nasal Resonance: Normal Voice Oral Resonance: Normal Voice Phonatory-based Quality: Normal Voice Pitch: Normal Clinical Impression: Intact Tests of Speech & Lang Adults: Clinical Impression: Did Not Test Observations: Testing not indicated. Tests of Cognition: RBANS Clinical Impression: Impaired Observations: Cognitive-Communication testing was conducted using the Repeatable Battery of Neuropsychological Status ? Update, Form A (RBANS). The RBANS is considered a screening battery for cognitive function and is repeatable for the purpose of evaluating any changes in function. It is intended for use with adolescents and adults, ages 12 to 89 years. Composite domains assessed in this test are: Immediate Memory, Visuospatial/Constructional, Language, Attention, and Delayed Memory. Stevan's scores on the RBANS fell within Severely Low Range. He demonstrated relative strength in the domain of Language (SS=60) with relative weakness in the areas of Visuospatial/Construction (SS=44) and Attention (SS=40). Immediate (SS=44) and Delayed Memory (SS=48) were also severely below average. His Total Scale Score was 45, in the <0.01ile. Augmentative and Alternative Communication: Did Not Test Impressions and Recommendations Summary: In summary, these testing results are strongly influence by his lifetime learning disabilities. While his Sister endorses that his forgetfulness has gotten worse, recent EEG and MRI did not show any neurological changes or processes to change this. I reviewed the results of the evaluation and determined that AIRPLANE PILOT SUPERVISOR intervention is not recommended at this time. He has an excellent system of supports to help him live with maximal independance. Pt and Sister area in agreement. Recommendation for Speech Therapy: NA:Typical Evaluation Discharged with Instructions for Home Use Frequency/Duration: N/a Date Range for Service Requested: N/a Time to Reassess: PRN Recommended Referrals to be Discussed with Primary Care Provider: Back to referring provider. Patient Education: Completed: Yes Patient/Caregiver Education: Patient expressed understanding of evaluation Patient agrees with goals and treatment plan Family/Caregivers expressed understanding of results Family/Caregivers expressed agreement with goals and treatment plan Comments/Barriers to Learning: Construction Executive Clinican/Clinical Fellow: No Supervisory Statement: N/A Speech Language Pathologist: Chandra Smith M.A., [facility]-AIRPLANE PILOT SUPERVISOR
== END 2023-10-26 15:00 | disposition home or self-care (01) ==
LOC: HO.SH 12:49
PROVIDERS: Visit Provider Psychiatry & Neurology Neurology
DX: R41.89 Other symptoms and signs involving cognitive functions and awareness (principal)
CPT/HCPCS: 92523

== ENCOUNTER 2023-11-02 13:09 | Outpatient (REF) | payer MEDICARE, SELFPAY ==
--- NOTE | ~2023-11-02 | MR_ITS ---
EXAMINATION: MR BRAIN WITHOUT CONTRAST CLINICAL INFORMATION: Memory loss COMPARISON: MRI brain 08/18/2022 TECHNIQUE: MRI of the brain was obtained using routine sequences without contrast. FINDINGS: No acute infarct. No acute intracranial hemorrhage or extra-axial fluid collection. The ventricles and sulci are normal in size and configuration without significant volume loss or hydrocephalus No mass lesion, mass effect, or herniation pattern. Normal intracranial arterial and dural venous sinus flow voids. Redemonstrated partially empty sella. The orbits are grossly unremarkable. Trace paranasal sinus mucosal thickening. No mastoid effusion. Normal marrow signal. MR/MR head/brain wo con IMPRESSION: Normal brain MRI, apart from partially empty sella.
== END 2023-11-02 13:10 | disposition home or self-care (01) ==
LOC: HO.MRI 13:09
PROVIDERS: PCP Internal Medicine; Visit Provider Psychiatry & Neurology Neurology
DX: R41.89 Other symptoms and signs involving cognitive functions and awareness (principal)
CPT/HCPCS: 70551

== ENCOUNTER 2023-11-06 14:34 | Outpatient (AMB) | payer OTHER, SELFPAY ==
[2023-11-06 14:35] VITALS: BP 120/70; PULSE 72; O2SAT 98; BMI 21.5
--- NOTE | 2023-11-06 14:35 | MHC.PC.OV ---
Vital Signs 11/06/23 14:35 Height 5 ft 10 in Weight 150 lb BMI 21.5 BP 120/70 Blood Pressure Location Lt brachial Position Sitting Pulse 72 Pulse Source Pulse Oximeter Pulse Oximetry (%) 98 Oxygen Delivery Method Room Air Intake Visit Reasons: MEDICAL COLLECTIONS SPECIALIST/IBS/Meds Intake Note: pt is here for new patient, [facility] care Publicist Required: No Allergies lactose intollerance Adverse Reaction (Severe, Uncoded 11/06/23 14:36) Diarreha Tobacco use date assessed: 11/06/23 Dental Screening Dental Screen Date: 11/06/23 Did you have a dental visit in the last 12 months?: Yes Did you have a dental problem in the last 6 months where you did not have access to dental care?: No Was dental information given to patient?: Patient has dentist HPI MEDICAL COLLECTIONS SPECIALIST/IBS/Meds HPI Details Pt is following up with GI (Dr. Sethi) due to IBS. Pt reports ongoing frequent diarrhea. His imodium was recently increased but pt has not had time to trial this yet. Pt c/o dizziness mostly in the morning when getting up. He was diagnosed with vertigo previously. He was given meclizine but does not remember if this helped. ? orthostatic hypotension. Pt has a nurse visit him daily, will have her check orthostatic vitals. Encouraged pt to increase water intake. Pt has an intellectual disability. He is here with his caregiver today. Due for PSA, will order. Denies dribbling with urination, weak stream, and frequent nocturia. PFSH Medical History Cognitive impairment Intellectual disability History of COVID-19 Renal calculi Surgical History Hx of lithotripsy Hx of cystoscopy H/O colonoscopy Social History Alcohol intake: never Patient Tobacco Use Status: Never used Tobacco Cognitive needs: No Hearing needs: No Vision needs: No Physical exam (Primary Care) Vital Signs: Last Vital Signs Pulse 72 11/06/23 14:35 BP 120/70 11/06/23 14:35 Pulse Ox 98 11/06/23 14:35 Oxygen Delivery Method Room Air 03/11/24 14:35 BMI result Body Mass Index 21.5 Tobacco/Smoking Status: Tobacco use Status Tobacco use date assessed 11/06/23 11/06/23 14:36 Patient Tobacco Use Status Never used Tobacco 11/06/23 14:36 Const General: cooperative Orientation/consciousness: patient oriented x3 Resp Effort & Inspection: normal respiratory effort Auscultation: clear to auscultation bilaterally Cardio Rate: regular rate Rhythm: regular rhythm Heart sounds: S1 normal heart sound present and S2 normal heart sound present Neuro Other: - violeta hallpike General: patient oriented x3 Cranial nerves: Yes CN's II-XII intact bilaterally Psych Appearance: grossly normal Speech and movement: Normal speech and movement present Affect: normal affect Attitude: cooperative Assessment and Plan Assessment & Plan (1) Intellectual disability: Code(s): F79 - Unspecified intellectual disabilities Plan: Seeing neuro, labs ordered (2) IBS (irritable bowel syndrome): Code(s): K58.9 - Irritable bowel syndrome without diarrhea Plan: Seeing GI, labs ordered (3) Screening PSA (prostate specific antigen): Code(s): Z12.5 - Encounter for screening for malignant neoplasm of prostate Plan: PSA ordered Plan The patient agreed to the use of a medical assistant ob gyn for this encounter. Scribed for STEPHAN Mcdermott- by Amberly Holder medical assistant ob gyn, on 11/06/2023 at 14:45 EST. Orders: Orders Complete Blood Count Auto Diff Today F79 - Unspecified intellectual disabilities, K58.9 - Irritable bowel syndrome without diarrhea Prostate Specific Antigen Scr Today Z12.5 - Encounter for screening for malignant neoplasm of prostate Comprehensive [place]. Panel Fast Today F79 - Unspecified intellectual disabilities, K58.9 - Irritable bowel syndrome without diarrhea TSH reflex Free T4 Today F79 - Unspecified intellectual disabilities, K58.9 - Irritable bowel syndrome without diarrhea UA CC w/rflx Micro + Cult Today F79 - Unspecified intellectual disabilities, K58.9 - Irritable bowel syndrome without diarrhea Lipid Panel Today F79 - Unspecified intellectual disabilities, K58.9 - Irritable bowel syndrome without diarrhea Coding Level of Care Code New Pt Level 3 (82747) Diagnoses Intellectual disability F79 IBS (irritable bowel syndrome) K58.9 Screening PSA (prostate specific antigen) Z12.5
== END 2023-11-06 15:08 | disposition home or self-care (01) ==
PROVIDERS: PCP Nurse Practitioner Family; Visit Provider Nurse Practitioner Family
DX: F79 Unspecified intellectual disabilities (principal); K58.9 Irritable bowel syndrome, unspecified; Z12.5 Encounter for screening for malignant neoplasm of prostate
CPT/HCPCS: 99203

== ENCOUNTER 2024-01-16 14:47 | Outpatient (AMB) | payer MEDICARE, SELFPAY ==
--- NOTE | 2024-01-16 15:04 | MHC.PC.OV ---
Vital Signs 01/16/24 15:06 Height 5 ft 10 in Weight 168 lb BMI 24.1 BP 90/64 Blood Pressure Location Rt brachial Position Sitting Pulse 66 Pulse Source Pulse Oximeter Pulse Oximetry (%) 97 Oxygen Delivery Method Room Air Intake Visit Reasons: allergies Intake Note: Patient here for allergies, Allergies Seasonal Allergies Allergy (Mild, Verified 01/16/24 15:08) Runny Nose lactose intollerance Adverse Reaction (Severe, Uncoded 01/16/24 15:07) Diarreha Tobacco use date assessed: 11/06/23 Dental Screening Dental Screen Date: 11/06/23 HPI allergies HPI Details Pt c/o increased allergy symptoms. He reports sneezing, itchy eyes, and runny nose. Recommended OTC cetirizine 20 mg daily, may increase to 20mg bid. Denies fever, chills, and dizziness. PFSH Medical History Cognitive impairment Intellectual disability History of COVID-19 Renal calculi Surgical History Hx of lithotripsy Hx of cystoscopy H/O colonoscopy Social History Alcohol intake: never Patient Tobacco Use Status: Never used Tobacco Cognitive needs: No Hearing needs: No Vision needs: No Questionnaire PHQ-9 Over the last 2 weeks, how often have you been bothered by any of the following problems? 1. Little interest or pleasure in doing things: not at all 2. Feeling down, depressed, or hopeless: not at all 3. Trouble falling or staying asleep, or sleeping too much: not at all 4. Feeling tired or having little energy: several days 5. Poor appetite or overeating: not at all 6. Feeling bad about yourself - or that you are a failure or have let yourself or your family down: not at all 7. Trouble concentrating on things, such as reading the newspaper or watching television: not at all 8. Moving or speaking so slowly that other people could have noticed. Or the opposite - being so fidgety or restless that you have been moving around a lot more than usual: not at all 9. Thoughts that you would be better off or of hurting yourself in some way: not at all Total score: 1 Depression Screening Interpretation: Negative Depression Screening Done: Yes 06776 - PHQ-9 Billing: Yes Source: Developed by Drs. Tariq Severino, Robert Duarte and colleagues, with an educational christiane from [employer]. Thrive Questionnaire Date Thrive assessed: 01/16/24 I am a: Patient What is your living situation today?: I have a steady place to live Within the past 12 months, did the food you bought not last and you didn't have the money to get more?: Never true Within the past 12 months, did you worry whether your food would run out before you got money to buy more?: Never true Do you have trouble paying for medicines?: No Do you have trouble getting transportation to medical appointments?: No Do you have trouble paying your heating and electricity bill?: No Do you have trouble taking care of your child, family member or friend?: No Do you have trouble with day-to-day activities such as bathing, preparing meals, shopping, managing finances, etc.?: No Are you currently unemployed and looking for a job?: No Are you interested in more education?: No Currently or been in a relationship where the following occur: I choose not to answer this question THRIVE Score: 0 RAMESH-7 AMB Questionnaire RAMESH-7 Feeling nervous, anxious, or on edge: 2 = More than half the days Not being able to stop or control worryin = More than half the days Worrying too much about different things: 2 = More than half the days Trouble relaxin = Several days Being so restless that it is hard to sit still: 2 = More than half the days Becoming easily annoyed or irritable: 0 = Not at all Feeling afraid as if something awful might happen: 0 = Not at all Total RAMESH-7 score (0-4 normal; 5-9 mild; 10-14 moderate; 15-21 severe): 9 Source: Developed by Drs. Tariq Severino, Robert Duarte and colleagues, with an educational christiane from [employer]. RAMESH-7 Assessment Billing RAMESH-7 Assessment Tool: RAMESH-7 Assessment 39769 Review of Systems Const Reports as per HPI Physical exam (Primary Care) Vital Signs: Last Vital Signs Pulse 66 01/16/24 15:06 BP 90/64 01/16/24 15:06 Pulse Ox 97 01/16/24 15:06 Oxygen Delivery Method Room Air 01/16/24 15:06 BMI result Body Mass Index 24.1 Tobacco/Smoking Status: Tobacco use Status Tobacco use date assessed 11/06/23 01/16/24 15:05 Patient Tobacco Use Status Never used Tobacco 01/16/24 15:05 PHQ-9: PHQ-9 Score PHQ-9: Total score 1 01/16/24 15:26 Depression Screening Interpretation: Negative Thrive Assessment: Date of Thrive Assessment Date Thrive assessed 01/16/24 01/16/24 15:16 Currently or been in a relationship where the following occur: I choose not to answer this question Const General: cooperative Orientation/consciousness: patient oriented x3 HENMT Ears: TM's normal bilaterally Resp Effort & Inspection: normal respiratory effort Auscultation: clear to auscultation bilaterally Cardio Rate: regular rate Rhythm: regular rhythm Heart sounds: S1 normal heart sound present and S2 normal heart sound present Neuro General: patient oriented x3 Psych Appearance: grossly normal Mental Status: mental status grossly normal Speech and movement: Normal speech and movement present Affect: normal affect Attitude: cooperative Thought process: Normal thought process present Thought content: Normal thought content present Insight: Good insight present (Psych) Judgement: Good judgement present (Psych) Assessment and Plan Assessment & Plan (1) Seasonal allergies: Code(s): J30.2 - Other seasonal allergic rhinitis Plan The patient agreed to the use of a medical billing representative for this encounter. Scribed for RUBY Mcdermott by Amberly Holder medical billing representative, on 01/16/2024 at 15:25 EST. Coding Level of Care Code Est Pt Level 3 (11959) Diagnoses Seasonal allergies J30.2 Additional Codes RAMESH-7 Assessment Billing - RAMESH-7 Assessment Tool: RAMESH-7 Assessment 26706 ([id number])
[2024-01-16 15:06] VITALS: BP 90/64; PULSE 66; O2SAT 97; BMI 24.1
== END 2024-01-16 16:32 | disposition home or self-care (01) ==
PROVIDERS: PCP Nurse Practitioner Family; Visit Provider Nurse Practitioner Family
DX: J30.2 Other seasonal allergic rhinitis (principal)
CPT/HCPCS: 99213

== ENCOUNTER 2024-03-19 11:03 | Outpatient (REF) | payer MEDICARE, SELFPAY ==
[2024-03-19 13:10] LABS: Appearance Urine Clear; Color Urine Yellow; Glucose Urine UA Negative (Negative); Leukocyte Esterase Urine Negative (Negative); Nitrite Urine Negative (Negative); Specific Gravity - Urine 1.015 (1.005-1.025); Urine Blood Negative (Negative); Urine Ketones Negative (Negative); Urine Protein Negative (Neg-Trace)
[2024-03-19 13:14] LABS: MANUAL DIFF FLAG NO
[2024-03-19 13:23] LABS: Basophils Percent Auto 0.4 % (0-2); Eosinophils Absolute Auto 0.1 X10*3/uL (0.0-0.4); Eosinophils Percent Auto 2.6 % (0-4); Hematocrit 39.5 % (42.0-52.0); Imm Gran Abs Auto 0.01 X10*3/uL (0.00-0.03); Imm Gran Pct Auto 0.2 % (0.0-0.4); Lymphocytes Absolute Auto 1.1 X10*3/uL (1.2-4.9); Lymphocytes Percent Auto 22.7 % (20-40); Mean Corpuscular HGB Conc 32.9 g/dl (31.0-36.0); Mean Corpuscular Hemoglobin 27.5 pg (27.0-33.0); Mean Corpuscular Volume 83.5 fL (80.0-98.0); Mean Platelet Volume 8.8 fL (9.4-12.4); Monocytes Absolute Auto 0.4 X10*3/uL (0.1-1.2); Monocytes Percent Auto 9.2 % (2-11); Neutrophils Percent Auto 64.9 % (45-73); Platelet Count 210 X10*3/uL (160-400); Red Blood Count 4.73 X10*6/uL (4.60-5.80); Red Cell Distribution Width 13.2 % (11.0-16.0); White Blood Count 4.7 X10*3/uL (4.8-10.8)
[2024-03-19 13:41] LABS: Alanine Aminotransferase 29 U/L (0-40); Albumin Level 4.3 g/dL (3.5-5.0); Alkaline Phosphatase 99 U/L (39-117); Anion Gap 13 (12-20); Aspartate Amino Transferase 24 U/L (5-37); Bilirubin Total 0.8 mg/dL (0.0-1.0); Blood Urea Nitrogen 16 mg/dL (9-16); Calcium 10.2 mg/dL (8.4-10.2); Carbon Dioxide 29 mmol/L (22-29); Chloride 104 mmol/L (96-108); Cholesterol 225 mg/dL (<200); Estimated Glomerular Filt Rate 57; Glucose Fasting 85 mg/dL (60-99); HDL Cholesterol 51 mg/dL (>40); LDL Cholesterol Calculated 157 mg/dL (<100); Potassium 4.4 mmol/L (3.3-5.1); Sodium 142 mmol/L (135-145); Total Protein 7.6 g/dL (6.5-8.0); Triglycerides 85 mg/dL (<150)
[2024-03-19 13:52] LABS: Prostate Specific Antigen Scr 0.63 ng/mL (<0.05-4.0)
== END 2024-03-19 11:04 | disposition home or self-care (01) ==
LOC: HO.HMGCLDS 11:03
PROVIDERS: PCP Nurse Practitioner Family; Visit Provider Nurse Practitioner Family
DX: F79 Unspecified intellectual disabilities (principal); K58.9 Irritable bowel syndrome, unspecified; Z12.5 Encounter for screening for malignant neoplasm of prostate
CPT/HCPCS: 36415; 80053; 80061; 81003; 84153; 84443; 85025

== ENCOUNTER 2024-03-20 13:32 | Outpatient (AMB) | payer MEDICARE, SELFPAY ==
--- NOTE | 2024-03-20 13:37 | A.OFFVIS_ITS ---
Intake Vital Signs 03/20/24 13:40 Height 5 ft 10 in Weight 170 lb BMI 24.4 BP 112/60 Blood Pressure Location Rt brachial Position Sitting Pulse 72 Pulse Source Pulse Oximeter Pulse Oximetry (%) 98 Oxygen Delivery Method Room Air Intake Visit Reasons: medicare wellness Intake Note: Patient here for medicare wellness. Allergies Seasonal Allergies Allergy (Mild, Verified 03/20/24 13:41) Runny Nose lactose intollerance Adverse Reaction (Severe, Uncoded 03/20/24 13:41) Diarreha Do you need a note to return to daycare/school/sports/work: No HPI medicare wellness HPI Details Pt is here for an AWV. Denies fever, chills, and dizziness. [place] of care in scan pile. PPP will be scanned in chart and copy will be given to pt. [facility] Medical History Cognitive impairment Intellectual disability History of COVID-19 Renal calculi Surgical History Hx of lithotripsy Hx of cystoscopy H/O colonoscopy Social History Alcohol intake: never Patient Tobacco Use Status: Never used Tobacco Cognitive needs: No Hearing needs: No Vision needs: No Questionnaire PHQ-9 Over the last 2 weeks, how often have you been bothered by any of the following problems? 1. Little interest or pleasure in doing things: not at all 3. Trouble falling or staying asleep, or sleeping too much: not at all 4. Feeling tired or having little energy: several days 5. Poor appetite or overeating: not at all 6. Feeling bad about yourself - or that you are a failure or have let yourself or your family down: not at all 7. Trouble concentrating on things, such as reading the newspaper or watching television: not at all 8. Moving or speaking so slowly that other people could have noticed. Or the opposite - being so fidgety or restless that you have been moving around a lot more than usual: not at all 9. Thoughts that you would be better off or of hurting yourself in some way: not at all Depression Screening Interpretation: Negative Depression Screening Done: Yes 82985 - PHQ-9 Billing: Yes Source: Developed by Drs. Tariq Severino, Peri Monroe, Robert Molina and colleagues, with an educational christiane from [email or web address] Review of Systems Const Reports as per HPI Physical Exam Vital Signs: Last Vital Signs Pulse 72 03/20/24 13:40 BP 112/60 03/20/24 13:40 Pulse Ox 98 03/20/24 13:40 Oxygen Delivery Method Room Air 03/20/24 13:40 BMI result Body Mass Index 24.4 Const General: cooperative Orientation/consciousness: patient oriented x3 Neuro Other: - romberg, can tandem walk, can walk and turn, can rise from sitting to standing, passed whisper test General: patient oriented x3 Psych Appearance: grossly normal Mental Status: mental status grossly normal Speech and movement: Normal speech and movement present Affect: normal affect Attitude: cooperative Thought process: Normal thought process present Thought content: Normal thought content present Insight: Good insight present (Psych) Judgement: Good judgement present (Psych) Assessment & Plan Assessment & Plan Plan The patient agreed to the use of a biomedical equipment technician for this encounter. Scribed for STEPHAN Mcdermott-JENNIFER by Amberly Holder biomedical equipment technician, on 03/20/2024 at 13:50 EST. Coding Level of Care Code Medicare First (G0438)
[2024-03-20 13:40] VITALS: BP 112/60; PULSE 72; O2SAT 98; BMI 24.4
--- NOTE | 2024-03-20 13:57 | MHC.PC.OV ---
Vital Signs 03/20/24 13:40 Height 5 ft 10 in Weight 170 lb BMI 24.4 BP 112/60 Blood Pressure Location Rt brachial Position Sitting Pulse 72 Pulse Source Pulse Oximeter Pulse Oximetry (%) 98 Oxygen Delivery Method Room Air Intake Visit Reasons: Annual PE Allergies Seasonal Allergies Allergy (Mild, Verified 03/20/24 13:41) Runny Nose lactose intollerance Adverse Reaction (Severe, Uncoded 03/20/24 13:41) Diarreha Tobacco use date assessed: 11/06/23 Dental Screening Dental Screen Date: 11/06/23 HPI Annual PE HPI Details Pt is here for a PE. Will order labs. Colon screen is up to date. PSA is up to date. Dyslipidemia: Will repeat labs in 2 months. Pt reports recent episode last week of erythema and swelling to his right dorsal wrist. He reported some mild swelling to his face as well. No signs of anaphylaxis. Recommended pt use hydroxyzine for itching. Will send epipen in case of anaphylaxis. Will order RAST testing. [facility] Medical History Cognitive impairment Intellectual disability History of COVID-19 Renal calculi Surgical History Hx of lithotripsy Hx of cystoscopy H/O colonoscopy Social History Alcohol intake: never Patient Tobacco Use Status: Never used Tobacco Cognitive needs: No Hearing needs: No Vision needs: No Questionnaire PHQ-9 Over the last 2 weeks, how often have you been bothered by any of the following problems? 1. Little interest or pleasure in doing things: not at all 3. Trouble falling or staying asleep, or sleeping too much: not at all 4. Feeling tired or having little energy: several days 5. Poor appetite or overeating: not at all 6. Feeling bad about yourself - or that you are a failure or have let yourself or your family down: not at all 7. Trouble concentrating on things, such as reading the newspaper or watching television: not at all 8. Moving or speaking so slowly that other people could have noticed. Or the opposite - being so fidgety or restless that you have been moving around a lot more than usual: not at all 9. Thoughts that you would be better off or of hurting yourself in some way: not at all Depression Screening Interpretation: Negative Depression Screening Done: Yes 29409 - PHQ-9 Billing: Yes Source: Developed by Drs. Tariq Severino, Peri Monroe, Robert Molina and colleagues, with an educational christiane from [employer]. Thrive Questionnaire Date Thrive assessed: 01/16/24 I am a: Patient What is your living situation today?: I have a steady place to live Within the past 12 months, did the food you bought not last and you didn't have the money to get more?: Never true Within the past 12 months, did you worry whether your food would run out before you got money to buy more?: Never true Do you have trouble paying for medicines?: No Do you have trouble getting transportation to medical appointments?: No Do you have trouble paying your heating and electricity bill?: No Do you have trouble taking care of your child, family member or friend?: No Do you have trouble with day-to-day activities such as bathing, preparing meals, shopping, managing finances, etc.?: No Are you currently unemployed and looking for a job?: No Are you interested in more education?: No Please select the resources that you would like help with: Housing/Skilled Nursing Currently or been in a relationship where the following occur: No concerns reported THRIVE Score: 0 AUDIT C Alcohol Use Questionnaire (AUDIT-C) 1. How often do you have a drink containing alcohol?: Never Total Score: 0 RAMESH-7 AMB Questionnaire RAMESH-7 Feeling nervous, anxious, or on edge: 0 = Not at all Not being able to stop or control worryin = Not at all Worrying too much about different things: 0 = Not at all Trouble relaxin = Not at all Being so restless that it is hard to sit still: 0 = Not at all Becoming easily annoyed or irritable: 0 = Not at all Feeling afraid as if something awful might happen: 0 = Not at all Total RAMESH-7 score (0-4 normal; 5-9 mild; 10-14 moderate; 15-21 severe): 0 Source: Developed by Drs. Tariq Severino, Peri Monroe, Robert Molina and colleagues, with an educational christiane from [employer]. RAMESH-7 Assessment Billing RAMESH-7 Assessment Tool: RAMESH-7 Assessment 09098 Review of Systems Const Denies chills and Denies fever(s) Eyes Denies blurry vision ENT Denies vertigo, Denies dizziness and Denies sore throat Card Denies chest pain at rest, Denies chest pain with activity, Denies diaphoresis, Denies dyspnea and Denies dyspnea on exertion Resp Denies cough, Denies dyspnea, Denies dyspnea on exertion and Denies wheezing GI Denies abdominal pain, Denies melena, Denies hematochezia, Denies constipation, Denies diarrhea and Denies loose stools Denies hematuria Musc Denies numbness and Denies tingling Skin/Breast Denies lesions Neuro Denies vertigo, Denies dizziness, Denies numbness and Denies tingling Psych Denies anxiety, Denies depression, Denies homicidal ideation, Denies suicidal ideation and Denies other (substance abuse) Aller/Immun Denies wheezing Physical exam (Primary Care) Vital Signs: Last Vital Signs Pulse 72 03/20/24 13:40 BP 112/60 03/20/24 13:40 Pulse Ox 98 03/20/24 13:40 Oxygen Delivery Method Room Air 03/20/24 13:40 BMI result Body Mass Index 24.4 Tobacco/Smoking Status: Tobacco use Status Tobacco use date assessed 11/06/23 03/20/24 13:57 Patient Tobacco Use Status Never used Tobacco 03/20/24 13:57 Depression Screening Interpretation: Negative Thrive Assessment: Date of Thrive Assessment Date Thrive assessed 01/16/24 03/20/24 13:57 Currently or been in a relationship where the following occur: No concerns reported Const General: cooperative Nutritional Appearance: well nourished Orientation/consciousness: patient oriented x3 HENMT Head: Yes normal to inspection, Yes normocephalic and Yes atraumatic Ears: TM's normal bilaterally Eyes General: appearance normal, both eyes and all related structures Alignment and Position: alignment normal and position normal Neck Neck: Yes normal visual inspection and Yes no lymphadenopathy Thyroid: Thyroid normal Resp Effort & Inspection: normal respiratory effort Auscultation: clear to auscultation bilaterally Cardio Rate: regular rate Rhythm: regular rhythm Heart sounds: S1 normal heart sound present, S2 normal heart sound present and no murmurs GI Palpation (GI): Soft to palpation and nontender Auscultation: normal bowel sounds Male General Exam: Yes normal external exam Penis: normal penis Scrotum: scrotum normal, testes descended bilaterally and no inguinal hernias Testes: no testicular mass Skin Rashes: no rashes Neuro General: patient oriented x3, moves all extremities, no focal motor deficits and deep tendon reflexes 2+ bilaterally Romberg Test: Negative Psych Appearance: grossly normal Mental Status: mental status grossly normal Speech and movement: Normal speech and movement present Affect: normal affect Attitude: cooperative Thought process: Normal thought process present Thought content: Normal thought content present Insight: Good insight present (Psych) Judgement: Good judgement present (Psych) Assessment and Plan Assessment & Plan (1) Dyslipidemia: Code(s): E78.5 - Hyperlipidemia, unspecified Plan: Labs ordered (2) Encounter for routine adult physical exam with abnormal findings: Code(s): Z00.01 - Encounter for general adult medical examination with abnormal findings Plan: Labs ordered Plan The patient agreed to the use of a medical genetics director for this encounter. Scribed for MICHELLE Mcdermott by Amberly Holder medical genetics director, on 03/20/2024 at 13:55 EST. Orders: Orders Complete Blood Count Auto Diff 2 Months E78.5 - Hyperlipidemia, unspecified, Z00.01 - Encounter for general adult medical examination with abnormal findings Comprehensive [place]. Panel Fast 2 Months E78.5 - Hyperlipidemia, unspecified, Z00.01 - Encounter for general adult medical examination with abnormal findings Lipid Panel 2 Months E78.5 - Hyperlipidemia, unspecified, Z00.01 - Encounter for general adult medical examination with abnormal findings Medications: New epinephrine (EpiPen) 0.3 mg (0.3 mL) IM Q4H PRN 2 ea 0RF anaphylaxis Coding Level of Care Code Est Pt Prev Care 40-64y(33142) Diagnoses Dyslipidemia E78.5 Encounter for routine adult physical exam with abnormal findings Z00.01 Additional Codes RAMESH-7 Assessment Billing - RAMESH-7 Assessment Tool: RAMESH-7 Assessment 54269 ([id number])
== END 2024-03-20 14:22 | disposition home or self-care (01) ==
PROVIDERS: PCP Nurse Practitioner Family; Visit Provider Nurse Practitioner Family
DX: Z00.00 Encounter for general adult medical examination without abnormal findings (principal); E78.5 Hyperlipidemia, unspecified
CPT/HCPCS: 99396

== ENCOUNTER 2024-04-20 11:30 | Outpatient (REF) | payer MEDICARE, SELFPAY | END 2024-04-20 11:31 | disposition home or self-care (01) | LOC: HO.HMGCLDS 11:30 | PROVIDERS: PCP Nurse Practitioner Family; Visit Provider Nurse Practitioner Family | DX: Z88.9 Allergy status to unspecified drugs, medicaments and biological substances (principal) | CPT/HCPCS: 36415; 86003 ==

== ENCOUNTER 2024-04-24 15:12 | Outpatient (AMB) | payer MEDICARE, SELFPAY ==
--- NOTE | 2024-04-24 15:13 | MHC.OFFVIS ---
Vital Signs 04/24/24 15:14 Height 5 ft 10 in Weight 171 lb 4 oz BMI 24.6 BP 114/68 Blood Pressure Location Rt brachial Position Sitting Respiration 16 Pulse 78 Pulse Source Pulse Oximeter Pulse Oximetry (%) 97 Oxygen Delivery Method Room Air Intake Visit Reasons: F/U - Memory Changes Intake Note: Pt presents to the office for a 1 year follow up for cognitive impairment. Marketing Finance Specialist Required: No Allergies Seasonal Allergies Allergy (Mild, Verified 04/24/24 15:14) Runny Nose lactose intollerance Adverse Reaction (Severe, Uncoded 04/24/24 15:14) Diarreha Medication List - Last Reconciled 04/24/24 by Tammy Santos MD buspirone 15 mg PO BID diphenoxylate-atropine 2.5-0.025 mg 1 tab PO BID PRN epinephrine (EpiPen) 0.3 mg (0.3 mL) IM Q4H PRN escitalopram oxalate 20 mg PO DAILY hydroxyzine HCl 50 mg PO BID meclizine 25 mg PO ONCE HPI Comments Details: 57y/o male with mild intellectual disability comes for follow up of cognitive issues. [place] [facility] [place] did not think therapy will help him. His cognitive issues are probably lifelong MRI - empty sella EEG normal Now he reports gasping arousals, fatigue He is accompanied by his tare worker Sybil. He reports short term memory issues since his COVID infection about 1 year ago.He frequently repeats himself, forgets his schedule, repeats questions, needs prompting for eating slowly etc. He lives on his own but independent in all ADLs.He has a nurse that administers his medications. He forgets conversations. 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 yesterday instead of taking his regular transportation he got on a vehicle with an unknown person and did not get to work. He called his worker to pick him up but was unable to tell her where he was. [facility] Medical History (Updated 04/24/24 @ 15:34 by Tammy Santos MD) Hypersomnia Snoring Cognitive impairment Intellectual disability History of COVID-19 Renal calculi Surgical History Hx of lithotripsy Hx of cystoscopy H/O colonoscopy Social History Alcohol intake: never Patient Tobacco Use Status: Never used Tobacco Cognitive needs: No Hearing needs: No Vision needs: No Review of Systems Neuro Reports confusion Psych Reports confusion Physical Exam Vital Signs: Last Vital Signs Pulse 78 04/24/24 15:14 Resp 16 04/24/24 15:14 BP 114/68 04/24/24 15:14 Pulse Ox 97 04/24/24 15:14 Oxygen Delivery Method Room Air 04/24/24 15:14 BMI result Body Mass Index 24.6 Const General: cooperative, healthy appearing, comfortable and confusion Nutritional Appearance: average body habitus Orientation/consciousness: confusion Eyes Pupils: Equal, round and reactive pupils present Neuro General: tone normal, moves all extremities, no focal motor deficits and confusion Cranial nerves: Yes Equal, round and reactive pupils present, Yes Bilaterally intact EOM present, Yes Nystagmus not present, Yes Normal facial strength present and Yes Midline tongue present Cognition (Neuro): abnormal cognition Gait exam (Neuro): Antalgic gait present Motor exam (neuro): 5/5 motor strength present throughout and Normal motor muscle tone present throughout Coordination: [id number] test normal Assessment & Plan Assessment & Plan (1) Cognitive impairment: Comment: dementia vs mild Cognitive impairment Code(s): R41.89 - Other symptoms and signs involving cognitive functions and awareness Category: Medical (2) Snoring: Code(s): R06.83 - Snoring Category: Medical (3) Hypersomnia: Code(s): G47.10 - Hypersomnia, unspecified Category: Medical Plan MRI EEG results discussed HST to r/o sleep apnea F/u therapy Due to his cognitive disorder patient needs transportation to and from work . Orders: Orders RT home sleep study Today G47.10 - Hypersomnia, unspecified, R06.83 - Snoring Coding Level of Care Code Est Pt Level 4 (39652) Diagnoses Cognitive impairment R41.89 Snoring R06.83 Hypersomnia G47.10
[2024-04-24 15:14] VITALS: BP 114/68; PULSE 78; RESP 16; O2SAT 97; BMI 24.6
== END 2024-04-24 15:38 | disposition home or self-care (01) ==
PROVIDERS: PCP Nurse Practitioner Family; Visit Provider Psychiatry & Neurology Neurology
DX: R41.89 Other symptoms and signs involving cognitive functions and awareness (principal); R06.83 Snoring; G47.10 Hypersomnia, unspecified
CPT/HCPCS: 99214

== ENCOUNTER → 2024-04-24 15:12 | Outpatient (BNVA) | payer MEDICARE, SELFPAY | PROVIDERS: PCP Nurse Practitioner Family; Visit Provider Psychiatry & Neurology Neurology | DX: R41.89 Other symptoms and signs involving cognitive functions and awareness (principal); R06.83 Snoring; G47.10 Hypersomnia, unspecified | CPT/HCPCS: 99212 ==

== ENCOUNTER → 2024-07-10 00:37 | Outpatient (BNV) | payer MEDICARE, SELFPAY | PROVIDERS: PCP Nurse Practitioner Family; Visit Provider Psychiatry & Neurology Neurology | DX: R06.83 Snoring (principal); G47.10 Hypersomnia, unspecified | CPT/HCPCS: 95810 ==

== ENCOUNTER → 2024-07-10 20:30 | Outpatient (REF) | payer MEDICARE, SELFPAY | LOC: HO.SL 20:30 | PROVIDERS: PCP Nurse Practitioner Family; Visit Provider Psychiatry & Neurology Neurology | DX: R06.83 Snoring (principal); G47.10 Hypersomnia, unspecified | CPT/HCPCS: 95810 ==

== ENCOUNTER 2024-08-20 09:55 | Outpatient (AMB) | payer MEDICARE, SELFPAY ==
--- NOTE | 2024-08-20 10:05 | MHC.PC.OV ---
Vital Signs 08/20/24 10:06 Height 5 ft 10 in Weight 175 lb BMI 25.1 BP 110/72 Blood Pressure Location Lt brachial Position Sitting Pulse 76 Pulse Source Pulse Oximeter Pulse Oximetry (%) 96 Oxygen Delivery Method Room Air Intake Visit Reasons: leg cramps Allergies Seasonal Allergies Allergy (Mild, Verified 08/20/24 12:16) Runny Nose lactose intollerance Adverse Reaction (Severe, Uncoded 08/20/24 12:16) Diarreha Medication List - Last Reconciled 08/20/24 by Fer Fernandez, [facility]- buspirone 15 mg PO BID diphenoxylate-atropine 2.5-0.025 mg 1 tab PO BID PRN epinephrine (EpiPen) 0.3 mg (0.3 mL) IM Q4H PRN escitalopram oxalate 20 mg PO DAILY hydroxyzine HCl 50 mg PO BID magnesium oxide 400 mg PO DAILY meclizine 25 mg PO ONCE Tobacco use date assessed: 11/06/23 Dental Screening Dental Screen Date: 11/06/23 HPI leg cramps HPI Details Chief Complaint The patient presents with leg cramps, particularly in the left distal lower extremity, especially at night. History of Present Illness The patient is a 58-year-old male presenting with leg cramps. He resides in a half-way and reports experiencing cramps predominantly in his left calf during the nighttime. These cramps have persisted for a couple of months but have recently shown slight improvement in the last two weeks. The cramps specifically affect the left distal lower extremity and have not been associated with warmth, redness, or swelling in the calf region. The patient has not experienced tenderness upon touch or palpation. He denies any prior interventions before this visit. Social History - Housing: The patient lives in a half-way. - Environment: Currently residing with a female staff member. Health Maintenance Review of Systems - Musculoskeletal: Reports leg cramps, especially at night. Physical Exam General: Cooperative, healthy appearing, comfortable, no acute distress and well developed Orientation: Patient oriented x3 Head: Normal to inspection Ears: Hearing grossly normal bilaterally Nose: Normal external nose present Face and sinus: Normal facial exam Eyes: Appearance normal, both eyes and all related structures Neck: Normal visual inspection and Yes full ROM Respiratory: Normal respiratory effort and able to speak in complete sentences. Clear to auscultation bilaterally Cardiovascular: Regular rate and rhythm. Normal S1 and S2 GI: Normal to inspection. Soft to palpation and nontender Skin: No rashes or lesions noted Neuro: Patient oriented x3 Extremities: Normal to inspection, No tenderness, warmth, or swelling noted in the left calf. Results Plan - Start magnesium oxide supplementation for one month. - Encourage increased fluid intake. - Suggest sipping sugar-free electrolyte drinks. Patient was informed and verbally consented to the use of an ambient scribe for clinic note documentation during this visit. Discussion Notes I discussed with the patient the plan for managing his leg cramps, which included starting magnesium oxide supplementation to be sent to his pharmacy. I advised increasing his daily water intake and suggested trying sugar-free electrolyte drinks to help with hydration. We will monitor the effectiveness of these interventions over the next month. I also explained the importance of these dietary and lifestyle modifications in managing the cramps, providing guidance on potential improvement timelines. Patient Instructions - Begin taking magnesium oxide as prescribed. - Increase water consumption each day. - Try drinking sugar-free electrolyte drinks to stay hydrated. PFSH Medical History Hypersomnia Snoring Cognitive impairment Intellectual disability History of COVID-19 Renal calculi Surgical History Hx of lithotripsy Hx of cystoscopy H/O colonoscopy Social History Alcohol intake: never Patient Tobacco Use Status: Never used Tobacco Cognitive needs: No Hearing needs: No Vision needs: No Questionnaire PHQ-9 Over the last 2 weeks, how often have you been bothered by any of the following problems? 43608 - PHQ-9 Billing: Patient declined-do not bill Source: Developed by Drs. Tariq Severino, Peri Monroe, Robert Molina and colleagues, with an educational christiane from [employer]. Thrive Questionnaire Date Thrive assessed: 03/20/24 I am a: Patient What is your living situation today?: I have a steady place to live Within the past 12 months, did the food you bought not last and you didn't have the money to get more?: Never true Within the past 12 months, did you worry whether your food would run out before you got money to buy more?: Never true Do you have trouble paying for medicines?: No Do you have trouble getting transportation to medical appointments?: No Do you have trouble paying your heating and electricity bill?: No Do you have trouble taking care of your child, family member or friend?: No Do you have trouble with day-to-day activities such as bathing, preparing meals, shopping, managing finances, etc.?: No Are you currently unemployed and looking for a job?: No Are you interested in more education?: No Please select the resources that you would like help with: None Currently or been in a relationship where the following occur: No concerns reported THRIVE Score: 0 Physical exam (Primary Care) Vital Signs: Last Vital Signs Pulse 76 08/20/24 10:06 BP 110/72 08/20/24 10:06 Pulse Ox 96 08/20/24 10:06 Oxygen Delivery Method Room Air 08/20/24 10:06 BMI result Body Mass Index 25.1 Tobacco/Smoking Status: Tobacco use Status Tobacco use date assessed 11/06/23 08/20/24 10:11 Patient Tobacco Use Status Never used Tobacco 08/20/24 10:11 Thrive Assessment: Date of Thrive Assessment Date Thrive assessed 03/20/24 08/20/24 10:11 Currently or been in a relationship where the following occur: No concerns reported Office Procedures Flu Questionnaire Does the patient have a severe egg allergy?: No Does the patient have severe life threatening allergies?: No Does the patient have a fever or illness today?: No Has the patient ever had Guillain-[place] Syndrome?: No Has the patient ever had any past reaction to a flu shot?: No Immunizations Fluarix Triv [id number] (PF) 45 mcg (15 mcg x 3)/0.5 mL IM syringe Performing Provider: RUBY Yee [place] [facility] Administered by: Vu Barcenas CMA on 08/20/24 10:42 Dose Route Admin Location Dispensed Lot Number Expiration Date [facility] Cassandra Developer 0.5 mL IM Right Deltoid 0.5 mL [id number] 02/24/25 [id number] [employer] VIS Given Date VIS Provided VIS Publication Date 08/20/24 Single Vaccine 21 Eligibility Eligibility Date Funding Source Not [facility] Eligible 08/20/24 Private Coding Level of Care Code Est Pt Level 3 (72574) Diagnoses Leg cramps R25.2 Assessment & Plan Assessment & Plan (1) Leg cramps: Code(s): R25.2 - Cramp and spasm Category: Medical Plan . Orders: Orders Influenza [id number] Immunization Today Z23 - Encounter for immunization Medications: New magnesium oxide 400 mg PO DAILY 30 tabs 0RF
[2024-08-20 10:06] VITALS: BP 110/72; PULSE 76; O2SAT 96; BMI 25.1
== END 2024-08-20 11:21 | disposition home or self-care (01) ==
PROVIDERS: PCP Nurse Practitioner Family; Visit Provider Nurse Practitioner Family
DX: Z23 Encounter for immunization (principal); R25.2 Cramp and spasm

== ENCOUNTER → 2024-08-20 09:55 | Outpatient (BNVA) | payer MEDICARE, SELFPAY | PROVIDERS: PCP Nurse Practitioner Family; Visit Provider Nurse Practitioner Family | DX: R25.2 Cramp and spasm (principal); Z23 Encounter for immunization | CPT/HCPCS: 90471; 90656; 99212 ==

== ENCOUNTER 2024-09-19 09:54 | Outpatient (AMB) | payer MEDICARE, SELFPAY ==
[2024-09-19 10:02] VITALS: BP 118/76; PULSE 74; RESP 16; TEMP 36.6; O2SAT 95; BMI 25.0
--- NOTE | 2024-09-19 10:02 | MHC.PC.OV ---
Vital Signs 09/19/24 10:02 Height 5 ft 10 in Weight 174 lb BMI 25.0 BP 118/76 Blood Pressure Location Rt brachial Position Sitting Respiration 16 Pulse 74 Pulse Source Pulse Oximeter Temp 97.8 F Temp Source Oral Pulse Oximetry (%) 95 Oxygen Delivery Method Room Air Intake Visit Reasons: 6 month follow up Intake Note: pt is here for 6 mon f/up Maintenance Controller Required: No Allergies Seasonal Allergies Allergy (Mild, Verified 09/19/24 10:19) Runny Nose lactose intollerance Adverse Reaction (Severe, Uncoded 09/19/24 10:19) Diarreha Medication List - Last Reconciled 09/19/24 by Fer Fernandez, [facility]- buspirone 15 mg PO BID cetirizine 10 mg PO DAILY diphenoxylate-atropine 2.5-0.025 mg 1 tab PO BID PRN epinephrine (EpiPen) 0.3 mg (0.3 mL) IM Q4H PRN escitalopram oxalate 20 mg PO DAILY hydroxyzine HCl 50 mg PO BID magnesium oxide 400 mg PO DAILY meclizine 25 mg PO ONCE Tobacco use date assessed: 09/19/24 Dental Screening Dental Screen Date: 09/19/24 Did you have a dental visit in the last 12 months?: Yes Did you have a dental problem in the last 6 months where you did not have access to dental care?: No Was dental information given to patient?: Patient has dentist HPI 6 month follow up HPI Details Chief Complaint Follow-up for allergy management. History of Present Illness The patient is a 58-year-old male presenting with a follow-up for allergy treatment management. He has undergone RAST testing and has significant allergies to several agents. These tests were recently completed, and the results have been shared with his healthcare provider. The patient carries an EpiPen and has been advised to keep it accessible at all times. The patient denies experiencing any symptoms related to his allergies, including shortness of breath, chest pain, nausea, or vomiting. He has commenced a regimen of daily cetirizine to manage allergy symptoms, which has been recommended for continuation. Emphasis has been placed on the avoidance of products to which tests indicate a high allergy risk. Social History Health Maintenance - Recommended continuation of daily cetirizine for allergy management. - Advised on the necessity of carrying an EpiPen at all times. - Discussion on avoidance of high-risk allergenic products. Review of Systems - Respiratory: Denies any shortness of breath. - Cardiovascular: Denies any chest pain. - Gastrointestinal: Denies any nausea or vomiting. Physical Exam General: Cooperative, healthy appearing, comfortable, no acute distress and well developed Orientation: Patient oriented x3 Limitations: No limitations Head: Normal to inspection Ears: Hearing grossly normal bilaterally Nose: Normal external nose present Face and sinus: Normal facial exam Eyes: Appearance normal, both eyes and all related structures Neck: Normal visual inspection and Yes full ROM Respiratory: Normal respiratory effort and able to speak in complete sentences. Clear to auscultation bilaterally Cardiovascular: Regular rate and rhythm. Normal S1 and S2 GI: Normal to inspection. Soft to palpation and nontender Neuro: Patient oriented x3 Extremities: Normal to inspection Results - Labs/tests: FAST and RAST allergy testing results discussed (specific results not detailed in the conversation). Plan - Reinforce the importance of consistently carrying and knowing how to use an EpiPen for allergy management. - Continue the current daily cetirizine regimen for allergic symptom control. - Advised to strictly avoid products identified as high-risk allergens according to recent testing. - Ensure proper understanding and implementation of allergy avoidance strategies. Patient was informed and verbally consented to the use of an ambient scribe for clinic note documentation during this visit. Discussion Notes I discussed with the patient the significance of his recent RAST test results, highlighting those allergens where he exhibits high sensitivity. We reviewed the importance of continued allergy management with cetirizine and the need to carry his EpiPen for emergency purposes. Emphasized the need to avoid identified high-risk allergens and outlined the plan to continue monitoring and managing his allergies effectively. Patient Instructions - Continue taking cetirizine daily as prescribed. - Always carry the EpiPen and know how to use it in case of an allergic reaction. - Avoid products that were identified as high-risk allergens in your test results. - Monitor for any symptoms of allergic reaction and seek care if symptoms arise. PFSH Medical History Hypersomnia Snoring Cognitive impairment Intellectual disability History of COVID-19 Renal calculi Surgical History Hx of lithotripsy Hx of cystoscopy H/O colonoscopy Social History Alcohol intake: never Patient Tobacco Use Status: Never used Tobacco Cognitive needs: No Hearing needs: No Vision needs: No Questionnaire PHQ-9 Over the last 2 weeks, how often have you been bothered by any of the following problems? 1. Little interest or pleasure in doing things: not at all 2. Feeling down, depressed, or hopeless: not at all 3. Trouble falling or staying asleep, or sleeping too much: not at all 4. Feeling tired or having little energy: not at all 5. Poor appetite or overeating: not at all 6. Feeling bad about yourself - or that you are a failure or have let yourself or your family down: not at all 7. Trouble concentrating on things, such as reading the newspaper or watching television: not at all 8. Moving or speaking so slowly that other people could have noticed. Or the opposite - being so fidgety or restless that you have been moving around a lot more than usual: not at all 9. Thoughts that you would be better off or of hurting yourself in some way: not at all Total score: 0 Depression Screening Interpretation: Negative Depression Screening Done: Yes 88530 - PHQ-9 Billing: Yes Source: Developed by Drs. Tariq Severino, Peri Monroe, Robert Molina and colleagues, with an educational christiane from [employer]. Thrive Questionnaire Date Thrive assessed: 09/19/24 I am a: Patient What is your living situation today?: I have a steady place to live Within the past 12 months, did the food you bought not last and you didn't have the money to get more?: Never true Within the past 12 months, did you worry whether your food would run out before you got money to buy more?: Never true Do you have trouble paying for medicines?: No Do you have trouble getting transportation to medical appointments?: No Do you have trouble paying your heating and electricity bill?: No Do you have trouble taking care of your child, family member or friend?: No Do you have trouble with day-to-day activities such as bathing, preparing meals, shopping, managing finances, etc.?: No Are you currently unemployed and looking for a job?: No Are you interested in more education?: No Please select the resources that you would like help with: None Currently or been in a relationship where the following occur: No concerns reported THRIVE Score: 0 AUDIT C Alcohol Use Questionnaire (AUDIT-C) 1. How often do you have a drink containing alcohol?: Never 3. How often do you have six or more drinks on one occasion?: Never Total Score: 0 Score Reviewed/Action Taken: Yes RAMESH-7 AMB Questionnaire RAMESH-7 Date RAMESH - 7 assessed: 09/19/24 Feeling nervous, anxious, or on edge: 0 = Not at all Not being able to stop or control worryin = Not at all Worrying too much about different things: 0 = Not at all Trouble relaxin = Not at all Being so restless that it is hard to sit still: 0 = Not at all Becoming easily annoyed or irritable: 0 = Not at all Feeling afraid as if something awful might happen: 0 = Not at all Total RAMESH-7 score (0-4 normal; 5-9 mild; 10-14 moderate; 15-21 severe): 0 Source: Developed by Drs. Tariq Severino, Peri Monroe, Robert Molina and colleagues, with an educational christiane from [employer]. RAMESH-7 Assessment Billing RAMESH-7 Assessment Tool: RAMESH-7 Assessment 02290 Physical exam (Primary Care) Vital Signs: Last Vital Signs Temp 97.8 F 09/19/24 10:02 Pulse 74 09/19/24 10:02 Resp 16 09/19/24 10:02 BP 118/76 09/19/24 10:02 Pulse Ox 95 09/19/24 10:02 Oxygen Delivery Method Room Air 09/19/24 10:02 BMI result Body Mass Index 25.0 Tobacco/Smoking Status: Tobacco use Status Tobacco use date assessed 09/19/24 09/19/24 10:03 Patient Tobacco Use Status Never used Tobacco 09/19/24 10:03 PHQ-9: PHQ-9 Score PHQ-9: Total score 0 09/19/24 10:03 Depression Screening Interpretation: Negative Thrive Assessment: Date of Thrive Assessment Date Thrive assessed 09/19/24 09/19/24 10:03 Currently or been in a relationship where the following occur: No concerns reported Coding Level of Care Code Est Pt Level 3 (98151) Diagnoses Multiple allergies Z88.9 Additional Codes RAMESH-7 Assessment Billing - RAMESH-7 Assessment Tool: RAMESH-7 Assessment 23478 ([id number]) PHQ-9 - 67014 - PHQ-9 Billing: Yes ([id number]) Assessment & Plan Assessment & Plan (1) Multiple allergies: Code(s): Z88.9 - Allergy status to unspecified drugs, medicaments and biological substances Category: Medical Plan . Orders: Orders Immunoglobulin E Today Z88.9 - Allergy status to unspecified drugs, medicaments and biological substances Comprehensive Dazey. Panel Fast Today Z88.9 - Allergy status to unspecified drugs, medicaments and biological substances TSH reflex Free T4 Today Z88.9 - Allergy status to unspecified drugs, medicaments and biological substances Complete Blood Count Auto Diff Today Z88.9 - Allergy status to unspecified drugs, medicaments and biological substances UA CC w/rflx Micro + Cult Today Z88.9 - Allergy status to unspecified drugs, medicaments and biological substances Lipid Panel Today Z88.9 - Allergy status to unspecified drugs, medicaments and biological substances
== END 2024-09-19 10:28 | disposition home or self-care (01) ==
PROVIDERS: PCP Nurse Practitioner Family; Visit Provider Nurse Practitioner Family
DX: Z88.9 Allergy status to unspecified drugs, medicaments and biological substances (principal)

== ENCOUNTER → 2024-09-19 09:54 | Outpatient (BNVA) | payer MEDICARE, SELFPAY | PROVIDERS: PCP Nurse Practitioner Family; Visit Provider Nurse Practitioner Family | DX: Z88.9 Allergy status to unspecified drugs, medicaments and biological substances (principal) | CPT/HCPCS: 96127; 99212 ==

== ENCOUNTER 2024-11-11 15:39 | Outpatient (AMB) | payer MEDICARE, SELFPAY ==
[2024-11-11 15:41] VITALS: PULSE 76; O2SAT 96; BMI 24.5
--- NOTE | 2024-11-11 15:41 | MHC.OFFVIS ---
Vital Signs 11/11/24 15:41 Height 5 ft 10 in Weight 171 lb BMI 24.5 Pulse 76 Pulse Source Pulse Oximeter Pulse Oximetry (%) 96 Oxygen Delivery Method Room Air Intake Visit Reasons: F/U - Memory Changes Intake Note: patient presents for follow up sleep study done 07/10/24 Allergies almond Allergy (Mild, Verified 11/11/24 15:43) Unknown apple Allergy (Mild, Verified 11/11/24 15:43) Unknown birch Allergy (Mild, Verified 11/11/24 15:43) Unknown arechiga Allergy (Mild, Verified 11/11/24 15:43) Unknown hazelnut Allergy (Mild, Verified 11/11/24 15:43) Unknown oak Allergy (Mild, Verified 11/11/24 15:43) Unknown peach Allergy (Mild, Verified 11/11/24 15:43) Unknown Seasonal Allergies Allergy (Mild, Verified 11/11/24 15:43) Runny Nose willow Allergy (Mild, Verified 11/11/24 15:43) Unknown beech Allergy (Mild, Uncoded 11/11/24 15:43) Unknown cottonwood Allergy (Mild, Uncoded 11/11/24 15:43) Unknown elm Allergy (Mild, Uncoded 11/11/24 15:43) Unknown hickory/pecan tree Allergy (Mild, Uncoded 11/11/24 15:43) Unknown Malinda Grass ([place] blue) (G8) IGE Allergy (Mild, Uncoded 11/11/24 15:43) Unknown maple (box elder) Allergy (Mild, Uncoded 11/11/24 15:43) Unknown meadow fescue (G4) IGE Allergy (Mild, Uncoded 11/11/24 15:43) Unknown Peanut (F13) IGE Allergy (Mild, Uncoded 11/11/24 15:43) Unknown Pear (F94) IGE Allergy (Mild, Uncoded 11/11/24 15:43) Unknown red top grass Allergy (Mild, Uncoded 11/11/24 15:43) Unknown walnut tree Allergy (Mild, Uncoded 11/11/24 15:43) Unknown lactose intollerance Adverse Reaction (Severe, Uncoded 11/11/24 15:43) Diarreha HPI Comments Details: 58y/o male with mild intellectual disability comes for follow up of cognitive issues. He is feeling better since he started using CPAP. He had cognitive testing at [facility] speech and they did not think therapy will help him. His cognitive issues are probably lifelong MRI - empty sella EEG normal He is accompanied by his worker's compensation claims examiner Sybil. He was diagnosed iwth sleep apnea and is on CPAP now. 90 day Compliance - 88% Over 6 hrs AHI 2 Max pressure used 9.7 History from last visit-He reports short term memory issues since his COVID infection about 1 year ago.He frequently repeats himself, forgets his schedule, repeats questions, needs prompting for eating slowly etc. He lives on his own but independent in all ADLs.He has a nurse that administers his medications. He forgets conversations. 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 yesterday instead of taking his regular transportation he got on a vehicle with an unknown person and did not get to work. He called his worker to pick him up but was unable to tell her where he was. [facility] Medical History Hypersomnia Snoring Cognitive impairment Intellectual disability History of COVID-19 Renal calculi Surgical History Hx of lithotripsy Hx of cystoscopy H/O colonoscopy Social History Alcohol intake: never Patient Tobacco Use Status: Never used Tobacco Cognitive needs: No Hearing needs: No Vision needs: No Review of Systems Neuro Reports confusion Psych Reports confusion Physical Exam Vital Signs: Last Vital Signs Pulse 76 11/11/24 15:41 Pulse Ox 96 11/11/24 15:41 Oxygen Delivery Method Room Air 11/11/24 15:41 BMI result Body Mass Index 24.5 Const General: cooperative, healthy appearing, comfortable and confusion Nutritional Appearance: average body habitus Orientation/consciousness: confusion Eyes Pupils: Equal, round and reactive pupils present Neuro General: tone normal, moves all extremities, no focal motor deficits and confusion Cranial nerves: Yes Equal, round and reactive pupils present, Yes Bilaterally intact EOM present, Yes Nystagmus not present, Yes Normal facial strength present and Yes Midline tongue present Cognition (Neuro): abnormal cognition Gait exam (Neuro): Antalgic gait present Motor exam (neuro): 5/5 motor strength present throughout and Normal motor muscle tone present throughout Coordination: [id number] test normal Results Reviewed Results Reviewed: Sleep Study- 07/21 AHI 32 O 2 84% Assessment & Plan Assessment & Plan (1) Cognitive impairment: Comment: dementia vs mild Cognitive impairment Code(s): R41.89 - Other symptoms and signs involving cognitive functions and awareness Category: Medical (2) Snoring: Code(s): R06.83 - Snoring Category: Medical (3) Hypersomnia: Code(s): G47.10 - Hypersomnia, unspecified Category: Medical Plan MRI EEG results discussed HST to r/o sleep apnea F/u therapy Due to his cognitive disorder patient needs transportation to and from work . Coding Level of Care Code Est Pt Level 4 (23211) Diagnoses Cognitive impairment R41.89 Snoring R06.83 Hypersomnia G47.10
--- OUTSIDE RECORDS SUMMARY | 2024-11-11 18:05 | XMS_ITS ---
Author Name Nathan SAPNATonya Address [address] [place] [address] Phone [phone] Organization [facility] Care Team Providers Care Greens Tier Name Role Phone Tonya Evans Unavailable [phone] Reason for Referral Not Available Allergies, adverse reactions, alerts No known allergies History of medication use Medication Class Instructions Start Date End Date Diphenoxylate-Atropine 2.5/0.025 mg Tab TAKE 1 TABLET BY MOUTH TWICE A DAY NEEDED 2023-06-26 No Data Available hydrOXYzine 50 mg Tab TAKE 1 TABLET BY M OUTH TWICE A DAY 2023-05-15 No Data Available Meclizine 12.5 mg Tab TAKE 1 TABLET BY M OUTH EVERY DAY IN THE MORNING AND TAKE 2 TABLETS AT BEDTIME 2022-09-20 No Data Available Escitalopram Oxalate 20 mg Tab TAKE 1 TABLET BY MOUTH EVERY DAY 2023-03-23 No Data Available Loperamide 2 mg Cap PLEASE SEE ATTACHED FOR DETAILED DIRECTIONS 2023-10-25 No Data Available EpiPen 2-Jose 0.3 mg/0.3ML Solution Auto-injector Injection 0.3 ml intramuscularly one time (dispense 2-jose for each location, e.g. home/carry/other) may repeat one time 2024-04-03 No Data Available busPIRone 15 mg Tab TAKE ONE AND ONE GONZALES F (1.5) TABLETS BY MOUTH TWICE A DAY 2024-02-01 No Data Available EPINEPHrine 0.3 mg/0.3ML Solution Auto-injector INJECT ONE PEN INTRAMUSCULARLY EVERY 4 HOURS NEEDED FOR ANAPHYLAXIS 2024-03-20 No Data Available Problem List Problem Status Onset Date Resolved Date Developmental delay Active 2023-12-23 N/A RAMESH (generalized anxiety disorder) Active 4-27 N/A Dizziness Active 2023-12-23 N/A Chronic diarrhea Active 2023-12-23 N/A Allergy Active 2024-04-03 N/A Other problems related to md dical facilities and other health care Active 2024-04-03 N/A Encounters Encounters Type Facility Date of Service Diagnosis/Co mplaint New patient, 30-44min 1 stable chronic or 2 minor; add modifier 95 for video, modifier 93 for phone [facility] ([place]2023 Generalized anxiety disorderUnsp lack of expected normal physiol dev in childhoodDizziness and giddinessNoninfective gastroenteritis and colitis, unspecified New patient, 30-44min 1 stable chronic or 2 minor; add modifier 95 for video, modifier 93 for phone [facility] ([place] 12[place]23[place]2023 New patient, 30-44min 1 stable chronic or 2 minor; add modifier 95 for video, modifier 93 for phone [facility] [place] 12/23/2023 New patient, 30-44min 1 stable chronic or 2 minor; add modifier 95 for video, modifier 93 for phone [facility] [place] 12[place]2023 New patient, 30-44min 1 stable chronic or 2 minor; add modifier 95 for video, modifier 93 for phone [facility] [place] 12/23/2023 New patient, 30-44min 1 stable chronic or 2 minor; add modifier 95 for video, modifier 93 for phone [facility] [place] 12/23/2023 New patient, 30-44min 1 stable chronic or 2 minor; add modifier 95 for video, modifier 93 for phone [facility] [place] 12/23/2023 New patient, 30-44min 1 stable chronic or 2 minor; add modifier 95 for video, modifier 93 for phone [facility], [place] 12/23/2023 No Data Available [facility], ([place] 04/[place]/2024 Allergy, unspecified, subsequent encounterOther problems related to medical facilities and other health care No Data Available [facility] [place] 04/[place]2024 No Data Available [facility] [place] 04[place]2024 Vital Signs Date of Collection Vitals 2023-12-23 13:30:38 Height - 177.8 cmWei ght - 72.58 kgBody Mass Index (BMI) - 22.96 kg/m2Pain Scale - 0.0 {score} Social History Sex Male History of Procedures Procedures Service Procedure code Service date Servicing provider Phone# New patient, 30-44min 1 stable chronic or 2 minor; add modifier 95 for video, modifier 93 for phone [phone] No Data Available No Data Available Medication List Documented (1159F) 1159F 2023-12-23 No Data Available No Data Dinah ilable Medication Review by prescribing provider or pharmacist documented (1160F) 1160F 2023-12-23 No Data Available No Data Dinah ilable Functional Status Assessed (1170F) 1170F 2023-12-23 No Data Available No Data Avail able Pain Assessment - NO pain present (1126F) 1126F 2023-12-23 No Data Available No Data A vailable Advance Care Directive Advance care planning discussion documented in the medical record (1158F) 1158F 2023-12-23 No Data Available No Data Availa ble BMI obtained (3008F) 3008F 2023-12-23 No Data Availab le No Data Available Advance care planning discussed and documented ? advance care plan or surrogate decision-maker was documented in the medical record. (1123F) 1123F 2023-12-23 No Data Available No Data Availa ble No Data Available 14233 2024-04-03 No Data Available No Data Available Functional Status Assessed (1170F) 1170F 2024-04-03 No Data Available No Data Avail able Medication List Documented (1159F) 1159F 2024-04-03 No Data Available No Data Dinah ilable Functional Status Functional Category Effective Dates Cognition Status: Mild Cognitive Impairm ent 2023-12-23 ADL: Bathing Needs Assistanc e , Dressing Needs Assistance , Eating Independent , Ambulation Independent , Transferring Independent and Toileting Independent 2023-12-23 IADL: Medication Needs Alison tance , Meal Prep Needs Assistance , Shopping Needs Assistance , Driving or Public Transport Needs Assistance , Housework Needs Assistance and Finances Needs Assistance 2023-12-23 Falls in last 6 Months: No 2023-12-23 Social Supports - # of Inter actions with Friends/Family in a typical week: daily 2023-12-23 Mental Status Status Date decreased cognition, needs assistance wi th complex measures 2023-12-23 Assessments Date of Service Assessments 2023-12-23 13:30:38 Developmental delayG AD (generalized anxiety disorder)DizzinessChronic diarrhea 2024-04-03 08:05:19 AllergyOther problem s related to medical facilities and other health care Plan of Care Date of Service Plans 2023-12-23 13:30:38 BMI obtained (3008F) SBPDBPTelevideo new patient, 30-44min 1 stable chronic or 2 minor; add modifier 95Advance care planning discussed and documented ? advance care plan or surrogate decision-maker was documented in the medical record. (1123F)Pain Assessment - Pain Documented (1125F)Continue to see PCP. Follow-up with [facility] as needed for any acute or disease education needs that may arise 20/03.unknown cause, not autism, possibly injury during , no cause identifiedescitalopram, buspirone, hydroxyzinemeclizinef/u with pcp annuallyloperamide prnf/u with pcp annually 2024-04-03 08:05:19 Phone (patient, pare nt, or guardian); 5-10 minutes of medical discussion (no modifier 95)Continue to see PCP. Follow-up with [facility] as needed for any acute or disease education needs that may arise 20/03.pt had facial swelling reported by his co workers rxed epipen. HCP is concerned about pt ability to safely carry an epipen , he never had an allergy. I recommended allergist/immunologist physician apt for allergy study, I am not convinced that he was having an allergic reaction cg is also concerned that pt may not be able to administer the epipen due to decreased cognitionMonthly follow up calls with ptCONTINGENCY PLANWhy was the member in the hospital or ER most recently? Why are they most likely to go back?[facility] if [facility] have a change in condition, Blood pressure > 170/90Fall, any unusual symptoms or have any medical questions! Health Concerns Date Concern 2024-04-03 Visit completed via audio by telephone. Patient/Guardian agreed to visit via telehealth.Time spent in visit: 5 min 2024-04-03 Most recent hospital stay(s) or ER visit(s) and precipitating factors: denies er visit 2024-04-03 HEDIS review: Review ed
--- OUTSIDE RECORDS SUMMARY | 2024-11-11 18:06 | XMS_ITS ---
Author Organization [facility] Address [address] [place] [address] Care Team Providers Care Stretcher Leveler Operator Name Role Phone LISA GEE Primary Care Provider Tariq Ramirez Unavailable [phone] Allergies No Known Allergies REASON FOR VISIT Patient presents today for RECTAL URGENCY Medications Medication SIG (Take, Route, Frequency, Duration) Notes Start Date End Date Status busPIRone HCl 15 MG TAKE ONE AND ONE GONZALES F (1.5) TABLETS BY MOUTH TWICE A DAY Oral for 90 Active Diphenoxylate-Atropine 2.5-0.025 MG TAKE 1 TABLET BY MOUTH TWICE A DAY NEEDED Oral for 30 Active Escitalopram Oxalate 20 MG TAKE 1 TABLET BY MOUTH EVERY DAY Oral for 90 Active hydrOXYzine HCl 50 MG TAKE 1 TABLET BY M OUTH TWICE A DAY Oral for 90 Active Meclizine HCl 12.5 MG TAKE 1 TABLET BY M OUTH EVERY DAY IN THE MORNING AND TAKE 2 TABLETS AT BEDTIME Oral for 30 Active Imodium Advanced Act jaime Imodium A-D 2 MG use 1 or 2 tablets O rally Use 15-30 minutes before a meal to prevent diarrhea, and use every 6 hours as needed for diarrhea. You may use up to 8 pills over the course of a day. for 30 days 10/25/2023 Active Immunizations Vaccine Route Administration Date Status Comme nts Influenza Unknown 10/25/2023 Refused Problems Problem Type SNOMED Code ICD Code Onset Dates Problem Status W/U Status Risk Notes Problem Irritable bowel syndrome with diarrhea (656874776) Irritable bowel syndrome with diarrhea (K58.0) Active confirmed Vital Signs Temperature 98.2 degrees Fahrenheit 10/25/19 24 Blood pressure systolic 000 mm Hg 10/25/19 24 Blood pressure diastolic 00 mm Hg 024 Height 71 in 10/25/2023 Weight 160 lb 4 oz lbs 10/25/2023 BMI 22.35 kg/m2 10/25/2023 Encounters Encounter Location Date Provider Diagnosis [facility] [address] [place] [address] 10/25/2023 Tariq Sethi Irritable bowel syndrome with diarrhea K58.0 Assessments Encounter Date Diagnosis (ICD Code) Assessment Notes Treatment Notes Treatment Clinical Notes Section Notes 10/25/2023 Irritable bowel syndrome with diarrhea (ICD-10 - K58.0) Take 1 or 2 Imodium before every meal as best as possible to try to prevent diarrhea. Avoid any specific foods that might be upsetting you as well. Overall, Lora appears quite well from a clinical standpoint. Given his long-standing symptomatology, negative colonoscopies and biopsies, and negative laboratory for celiac disease, I did advise Lora and his outreach analyst that this appears to be some chronic irritable bowel syndrome associated diarrhea. I don't think this reflects any other significant pathology given his good clinical appearance with weight gain, is negative studies, and recent stable laboratories. I don't think any further testing is required on my part. I have recommended that he begin using one or 2 Imodium before every meal to see if that can help alleviate the postprandial diarrhea. If that does not work then we could have him start using his Lomotil more regularly as well, rather than just p.r.n.. I would hold off on antispasmodics at this point given no description of abdominal pain or cramps. If things improve and are stable on the Imodium and/or Lomotil, Lora will see me on a p.r.n. basis. However, I have given instructions that I should be notified if he continues to have problems. We did review that he'll be due for a colonoscopy in 2026 as well. Lora and Sybil were comfortable with this plan. Thank you again for allowing me to participate in Lora's care. I shall continue to keep you advised of this progress as needed. Please do not hesitate to contact me if I can be of further assistance in the future. 10/25/2023 Other Repeat colonoscopy in 01/2027 Overall, Lora appears quite well from a clinical standpoint. Given his long-standing symptomatology, negative colonoscopies and biopsies, and negative laboratory for celiac disease, I did advise Lora and his outreach analyst that this appears to be some chronic irritable bowel syndrome associated diarrhea. I don't think this reflects any other significant pathology given his good clinical appearance with weight gain, is negative studies, and recent stable laboratories. I don't think any further testing is required on my part. I have recommended that he begin using one or 2 Imodium before every meal to see if that can help alleviate the postprandial diarrhea. If that does not work then we could have him start using his Lomotil more regularly as well, rather than just p.r.n.. I would hold off on antispasmodics at this point given no description of abdominal pain or cramps. If things improve and are stable on the Imodium and/or Lomotil, Lora will see me on a p.r.n. basis. However, I have given instructions that I should be notified if he continues to have problems. We did review that he'll be due for a colonoscopy in 2026 as well. Lora and Sybil were comfortable with this plan. Thank you again for allowing me to participate in Lora's care. I shall continue to keep you advised of this progress as needed. Please do not hesitate to contact me if I can be of further assistance in the future. Plan Of Treatment Medication Medication Name Sig Start Date Stop Date Notes Imodium A-D 2 MG use 1 or 2 tablets O rally Use 15-30 minutes before a meal to prevent diarrhea, and use every 6 hours as needed for diarrhea. You may use up to 8 pills over the course of a day. for 30 days 10/25/2023 Treatment Notes Assessment Notes Irritable bowel syndrome with diarrhea Take 1 or 2 Imodium before every meal as best as possible to try to prevent diarrhea. Avoid any specific foods that might be upsetting you as well. Other Repeat colonoscopy i n 01/2027 Next Appt Details Follow Up: prn, Reason: Progress Notes * LORA FELIPEDOB:[birth year] (57 yo M)Acc No.[id number]:10/25/2023 Progress Notes Patient:?LORA FELIPE Provider:?Tariq Sethi MD :1965???Age:57 Y???Sex:Male Edenilson e:10/25/2023 Address:[address] [place], [place] [address], [place], [id number] Pcp:Mitul Mares MD Subjective: * Chief Complaints: * ???Patient presents today fo r RECTAL URGENCY * HPI: ???incontinence:? I saw Lora in followup today in regard to his chronic issues with postprandial diarrhea. He was accompanied by his outreach analyst, Sybil. ?I last saw Lora in January of 2022, at which time he underwent a followup screening colonoscopy which was negative for polyps, inflammatory bowel disease, and microscopic colitis. As you know, he has had a problem with postprandial diarrhea on a regular basis for many years. His medication list includes Lomotil on a p.r.n. basis although I am not really sure how often he takes that. He has at least 3 loose bowel movements daily with occasional accidents . He denies any abdominal pain, nausea, vomiting, anorexia, nor any signs of bleeding. He has gained 16 pounds since he was here last. ?Laboratories in June of 2023 revealed a stable hemoglobin of 12.1 with a normal MCV, normal chemistries, normal LFTs, and a normal albumin. In addition to biopsies of the colon that were negative for microscopic colitis in 2021, he also had negative laboratories for celiac disease back in 2021 was well. * ROS:?General/Constitutional:?Change in appetite?denies.?Chills?denies.?Fatigue?denies.?Ophthalmologic:?Comments?all negative.?ENT:?Comments?all negative.?Respiratory:?hemoptysis?denies.?Cough?denies.?Cardiovascular:?Chest pain?denies.?Orthopnea?denies.?Gastrointestinal:?Comments?See HPI for details.?Genitourinary:?Hematuria?denies.?Dysuria?denies.?Musculoskeletal:?Painful joints?denies.?Weakness?denies.?Skin:?Itching?denies.?Rash?denies.?Neurologic:?Headache?denies.?Seizures?denies.?Psychiatric:?Comments?all negative.? * Medical History:? * Surgical History:?Denies Pas t Surgical History * Hospitalization/Major Diagno stic Procedure:?No Hospitalization History. * Family History:?Father: carter mustafa, unknown.?Mother: .? no family hx of colorectal or polyps. No family history of colon cancer or liver cancer. * Social History:?Tobacco Use:?Tobacco Use/Smoking?Patient is a: nonsmoker.?Drugs/Alcohol:?Alcohol Screen?Points: 0, Interpretation: Negative.?Miscellaneous:?Living with: alone. Marital status: single. Occupation: [employer]. ???Nonsmoker; no alcohol. His sister, Abeba Richardson, is his legal guardian. * Medications:?TakingImodium A dvanced Meclizine HCl 12.5 MG Tablet TAKE 1 TABLET BY MOUTH EVERY DAY IN THE MORNING AND TAKE 2 TABLETS AT BEDTIME Oral hydrOXYzine HCl 50 MG Tablet TAKE 1 TABLET BY MOUTH TWICE A DAY Oral Escitalopram Oxalate 20 MG Tablet TAKE 1 TABLET BY MOUTH EVERY DAY Oral Diphenoxylate-Atropine 2.5-0.025 MG Tablet TAKE 1 TABLET BY MOUTH TWICE A DAY NEEDED Oral busPIRone HCl 15 MG Tablet TAKE ONE AND ONE HALF (1.5) TABLETS BY MOUTH TWICE A DAY Oral Medication List reviewed and reconciled with the patientTaking Imodium Advanced Taking Meclizine HCl 12.5 MG Tablet TAKE 1 TABLET BY MOUTH EVERY DAY IN THE MORNING AND TAKE 2 TABLETS AT BEDTIME Oral Taking hydrOXYzine HCl 50 MG Tablet TAKE 1 TABLET BY MOUTH TWICE A DAY Oral Taking Escitalopram Oxalate 20 MG Tablet TAKE 1 TABLET BY MOUTH EVERY DAY Oral Taking Diphenoxylate-Atropine 2.5-0.025 MG Tablet TAKE 1 TABLET BY MOUTH TWICE A DAY NEEDED Oral Taking busPIRone HCl 15 MG Tablet TAKE ONE AND ONE HALF (1.5) TABLETS BY MOUTH TWICE A DAY Oral Medication List reviewed and reconciled with the patient * Allergies:?N.K.D.A.yes[Aller gies Verified] Objective: * Vitals:?Wt: 160 lb 4 oz, Ht: 71 in, BMI:22.35 Index, BP: 000/00 mm Hg, Temp: 98.2. * Examination: ???General Examination: ?GENERAL APPEARANCE:?pleasant, well nourished, well developed, in no acute distress.?EYES:?sclera non-icteric.?ORAL CAVITY:?mucosa moist.?NECK/THYROID:?no cervical lymphadenopathy, neck supple.?SKIN:?nonjaundiced, no spider angiomata.?HEART:?S1, S2 normal.?LUNGS:?clear to auscultation bilaterally.?ABDOMEN:?normal bowel sounds, no guarding or rigidity, no guarding or rigidity, no masses palpable, soft, nontender, nondistended.?EXTREMITIES:?no edema.?NEUROLOGIC:?alert and oriented.? Assessment: * Assessment: 1.?Irritable bowel syndrome with diarrhea - K58.0 (Primary)? Overall, Lora appears dede te well from a clinical standpoint. Given his long-standing symptomatology, negative colonoscopies and biopsies, and negative laboratory for celiac disease, I did advise Lora and his outreach analyst that this appears to be some chronic irritable bowel syndrome associated diarrhea. I don't think this reflects any other significant pathology given his good clinical appearance with weight gain, is negative studies, and recent stable laboratories. I don't think any further testing is required on my part. I have recommended that he begin using one or 2 Imodium before every meal to see if that can help alleviate the postprandial diarrhea. If that does not work then we could have him start using his Lomotil more regularly as well, rather than just p.r.n.. I would hold off on antispasmodics at this point given no description of abdominal pain or cramps. If things improve and are stable on the Imodium and/or Lomotil, Lora will see me on a p.r.n. basis. However, I have given instructions that I should be notified if he continues to have problems. We did review that he'll be due for a colonoscopy in 2026 as well. Lora and Sybil were comfortable with this plan. Thank you again for allowing me to participate in Lora's care. I shall continue to keep you advised of this progress as needed. Please do not hesitate to contact me if I can be of further assistance in the future. Plan: * Treatment: 2.?Others? Notes: Repeat colonoscopy in 01/2027?? * Immunizations:? Influenza (Not administered - Refused: Patient decision) * Procedure Codes:?3017F COLOR ECTAL CA SCREEN DOC [id number] TOBACCO [id number] BP SCR NOT PRFRM REC REASON NOS * Follow Up:?prn * * Sign off status: Completed true * Provider:?Tariq Sethi MD Date:? 024 Generated for Jaelyn zuniga/Nakul/eTransmitting on:?11/11/2024 06:05 PM EDT History and Physical Notes * HPI (History of Present Illness) Category Sub-Category Detail Notes Category Not es incontinence I saw Lora in followup today in regard to his chronic issues with postprandial diarrhea. He was accompanied by his outreach analyst, Sybil. I last saw Lora in January of 2022, at which time he underwent a followup screening colonoscopy which was negative for polyps, inflammatory bowel disease, and microscopic colitis. As you know, he has had a problem with postprandial diarrhea on a regular basis for many years. His medication list includes Lomotil on a p.r.n. basis although I am not really sure how often he takes that. He has at least 3 loose bowel movements daily with occasional accidents . He denies any abdominal pain, nausea, vomiting, anorexia, nor any signs of bleeding. He has gained 16 pounds since he was here last. Laboratories in June of 2023 revealed a stable hemoglobin of 12.1 with a normal MCV, normal chemistries, normal LFTs, and a normal albumin. In addition to biopsies of the colon that were negative for microscopic colitis in 2021, he also had negative laboratories for celiac disease back in 2021 was well. Examination Category Sub-Category Detail Notes Category Not es General Examination GENERAL APPEARANCE: pleasant , well nourished, well developed, in no acute distress HEAD: EYES: sclera non-icteric EARS: NOSE: THROAT: NECK/THYROID: no cervical lymphade nopathy, neck supple HEART: S1, S2 normal CHEST: LUNGS: clear to auscultatio n bilaterally ABDOMEN: normal bowel sounds, no guarding or rigidity, no guarding or rigidity, no masses palpable, soft, nontender, nondistended NEUROLOGIC: alert and oriented SKIN: nonjaundiced, no spi jeanne angiomata EXTREMITIES: no edema PERIPHERAL PULSES: BACK: BREASTS: MUSCULOSKELETAL: MALE GENITOURINARY: LYMPH NODES: RECTAL EXAM: FEMALE GENITOURINARY: ORAL CAVITY: mucosa moist
--- OUTSIDE RECORDS SUMMARY | 2024-11-11 18:06 | XMS_ITS | Patient Health Record ---
Author Organization [facility] Address [address] [place] [address] Care Team Providers Care Line Prep Cook Name Role Phone LISA GEE Primary Care Provider Tariq Ramirez Unavailable [phone] Allergies No Known Allergies Reason For Referral No Information Medications Medication SIG (Take, Route, Frequency, Duration) [...] TABLETS AT BEDTIME Oral for 30 Active Loperamide HCl 2 MG USE 1 OR 2 TABLETS O RALLY USE 15-30 MINUTES BEFORE A MEAL TO PREVENT DIARRHEA, AND USE EVERY 6 HOURS NEEDED FOR DIARRHEA. MAX 8 CAPSULES OVER THE COURSE OF A DAY. for 30 Active Imodium Advanced Act jaime Immunizations Vaccine Route Administration Date Status Comme nts Influenza Unknown 02/26/2016 Administered Influenza Unknown 04/28/2021 Administered Influenza Unknown 10/25/2023 Refused Problems Problem Type SNOMED Code ICD Code Onset Dates Problem Status W/U Status Risk Notes Problem 460705492 Encounter for screening for malignant neoplasm of colon (Z12.11) Active confirmed Problem History of polyp of colon (situation) (289873949) Personal history of colonic polyps (Z86.010) Active confirmed Problem Irritable bowel syndrome with diarrhea (817350601) Irritable bowel syndrome with diarrhea (K58.0) Active confirmed Problem Screening for malignant neoplasm of rectum (301198723) Encounter for screening for malignant neoplasm of rectum (Z12.12) Active confirmed Problem History of polyp of colon (402524330) History of colon polyps (Z86.010) Active confirmed Problem Chronic diarrhea (380852883) Chronic diarrhea (K52.9) Active confirmed Problem Diverticulosis of colon (513755184) Diverticulosis of colon (K57.30) Active confirmed Encounters Encounter Location Date Provider Diagnosis [facility] [address] [place] [address] 03/07/2024 Tariq Sethi Irritable bowel syndrome with diarrhea K58.0 Assessments Encounter Date Diagnosis (ICD Code) Assessment Notes Treatment Notes Treatment Clinical Notes Section Notes 03/07/2024 Irritable bowel syndrome with diarrhea (ICD-10 - K58.0) Plan Of Treatment Pending Test Test Name Order Date LIVER PROFILE 01/25/2022 CRP 01/25/2022 CBC w DIFF 01/25/2022 SED RATE (ESR) 01/25/2022 CELIAC PANEL #10 01/25/2022 STOOL WBC 01/25/2022 C DIFFICILE RFLX PCR 01/25/2022 CALPROTECTIN, STOOL 01/25/2022 Giardia Ag Stool EIA 01/25/2022 Stool Culture 01/25/2022 Ova and Parasite 01/25/2022 Future Test Test Name Order Date COLONOSCOPY 08/12/2016 COLONOSCOPY 01/25/2022 Insurance Providers Payer Name Payer Address Payer Phone Subscriber Number Group Number Insured Name Patient Relationship to Insured Coverage Start Date Coverage End Date [facility] [address] [address] [place] [address] [id number] LORA FELIPE Self - patient is the insured Medical (General) History Medical History History ICD Code Denies GA,DM,CVA,Lung disease,renal dise ase Kidney stones Some cognitive delays since --sister, Abeba Richardson, is the legal guardian Colonoscopy 10/2016 with a small tubular adenoma removed COVID end of 11/2021 with some associated diarrhea Colonoscopy 01/2022 negative for polyps, IBD, and microscopic colitisi Negative laboratories for celiac disease in 2021 IBS with postprandial diarrhea Surgical History Surgery Date(Month/Year)
--- OUTSIDE RECORDS SUMMARY | 2024-11-11 18:06 | XMS_ITS ---
Author Organization [facility] Address [address] [address] Care Team Providers Care Seed Tester Name Role Phone LISA GEE Primary Care Provider Татьяна SethiTariq Unavailable [phone] REASON FOR VISIT pt needs r/f on imodium 2mg Medications Medication SIG (Take, Route, Fr equency, Duration) Notes Start Date End Date Status Imodium A-D 2 MG use 1 or 2 tablets O rally Use 15-30 minutes before a meal to prevent diarrhea, and use every 6 hours as needed for diarrhea. You may use up to 8 pills over the course of a day. for 30 days 10/25/2023 Active Encounters Encounter Location Date Provider Diagnosis [facility] [address] 03/07/2024 Tariq Sethi Irritable bowel syndrome with diarrhea K58.0 Assessments Encounter Date Diagnosis (ICD Code) Assessment Notes Treatment Notes Treatment Clinical Notes Section Notes 03/07/2024 Irritable bowel syndrome with diarrhea (ICD-10 - K58.0) Plan Of Treatment Medication Medication Name Sig Start Date Stop Date Notes Imodium A-D 2 MG use 1 or 2 tablets O rally Use 15-30 minutes before a meal to prevent diarrhea, and use every 6 hours as needed for diarrhea. You may use up to 8 pills over the course of a day. for 30 days 10/25/2023 Progress Notes * LORA FELIPEDOB:[birth year] (58 yo M)Acc No.[id number]:03/07/2024 Patient:?LORA FELIPE :1965???Age:58 Y???Sex:Male Address:[address] [place] [address], [place] [address] * Refills? Refill Imodium A-D Tablet, 2 MG, Orally, 100, use 1 or 2 tablets, Use 15-30 minutes before a meal to prevent diarrhea, and use every 6 hours as needed for diarrhea. You may use up to 8 pills over the course of a day., 30 days, Refills=6 * true * Date:? Generated for Jaelyn zuniga/Nakul/eTransmitting on:?11/11/2024 06:06 PM EDT
== END 2024-11-11 16:03 | disposition home or self-care (01) ==
LOC: HO.HSMS 15:40
PROVIDERS: PCP Nurse Practitioner Family; Visit Provider Psychiatry & Neurology Neurology
DX: R41.89 Other symptoms and signs involving cognitive functions and awareness (principal); R06.83 Snoring; G47.10 Hypersomnia, unspecified
CPT/HCPCS: 99214

== ENCOUNTER → 2024-11-11 15:39 | Outpatient (BNVA) | payer MEDICARE, SELFPAY | PROVIDERS: PCP Nurse Practitioner Family; Visit Provider Psychiatry & Neurology Neurology | DX: R41.89 Other symptoms and signs involving cognitive functions and awareness (principal); R06.83 Snoring; G47.10 Hypersomnia, unspecified; Z99.89 Dependence on other enabling machines and devices | CPT/HCPCS: 99212 ==

== ENCOUNTER 2025-01-02 14:41 | Outpatient (AMB) | payer MEDICARE, SELFPAY ==
--- NOTE | 2025-01-02 14:54 | AM.OFFWIN_ITS ---
Intake Vital Signs 01/02/25 15:01 Weight 177 lb BP 110/80 Blood Pressure Location Rt brachial Position Sitting Pulse 64 Pulse Source Pulse Oximeter Pulse Oximetry (%) 99 Oxygen Delivery Method Room Air Intake Visit Reasons: EP- RT hand wound Intake Note: Patient here for wound on right hand. Patient Tobacco Use Status: Never used Tobacco Allergies almond Allergy (Mild, Verified 01/02/25 15:01) Unknown apple Allergy (Mild, Verified 01/02/25 15:01) Unknown birch Allergy (Mild, Verified 01/02/25 15:01) Unknown arechiga Allergy (Mild, Verified 01/02/25 15:01) Unknown hazelnut Allergy (Mild, Verified 01/02/25 15:01) Unknown oak Allergy (Mild, Verified 01/02/25 15:01) Unknown peach Allergy (Mild, Verified 01/02/25 15:01) Unknown Seasonal Allergies Allergy (Mild, Verified 01/02/25 15:01) Runny Nose willow Allergy (Mild, Verified 01/02/25 15:01) Unknown beech Allergy (Mild, Uncoded 01/02/25 15:01) Unknown cottonwood Allergy (Mild, Uncoded 01/02/25 15:01) Unknown elm Allergy (Mild, Uncoded 01/02/25 15:01) Unknown hickory/pecan tree Allergy (Mild, Uncoded 01/02/25 15:01) Unknown Malinda Grass ([place] blue) (G8) IGE Allergy (Mild, Uncoded 01/02/25 15:01) Unknown maple (box elder) Allergy (Mild, Uncoded 01/02/25 15:01) Unknown meadow fescue (G4) IGE Allergy (Mild, Uncoded 01/02/25 15:01) Unknown Peanut (F13) IGE Allergy (Mild, Uncoded 01/02/25 15:01) Unknown Pear (F94) IGE Allergy (Mild, Uncoded 01/02/25 15:01) Unknown red top grass Allergy (Mild, Uncoded 01/02/25 15:01) Unknown walnut tree Allergy (Mild, Uncoded 01/02/25 15:01) Unknown lactose intollerance Adverse Reaction (Severe, Uncoded 01/02/25 15:01) Diarreha Do you need a note to return to daycare/school/sports/work: No HPI HPI Comments History of Present Illness Details 59 y/o Male patient who presents to the walk in clinic with c/o Infected Skin on his both Hands. He has a habit of picking his skin constantly. [facility] Medical History (Updated 01/02/25 @ 15:27 by Ladonna Romero NP) Cellulitis of skin Hypersomnia Snoring Cognitive impairment Intellectual disability History of COVID-19 Renal calculi Surgical History (Updated 12/25/24 @ 12:29 by Sailaja Lyle) Hx of lithotripsy Hx of cystoscopy H/O colonoscopy (~02/21/22) Social History Alcohol intake: never Patient Tobacco Use Status: Never used Tobacco Cognitive needs: No Hearing needs: No Vision needs: No Review of Systems Const All systems reviewed & are unremarkable except as noted in HPI and below Physical Exam Vital Signs: Last Vital Signs Pulse 64 01/02/25 15:01 BP 110/80 01/02/25 15:01 Pulse Ox 99 01/02/25 15:01 Oxygen Delivery Method Room Air 01/02/25 15:01 Const General: no acute distress Orientation/consciousness: patient oriented x3 Skin Other: Open lesions, scabs with yellow crusting on both Hands. Neuro General: patient oriented x3 and moves all extremities Assessment & Plan Assessment & Plan (1) Cellulitis of skin: Code(s): L03.90 - Cellulitis, unspecified Plan: Ordered Keflex for 5 days. Advised to stop picking his skin. Medications: New cephalexin 500 mg PO Q12H 10 caps 0RF 5 days L03.90 - Cellulitis, unspecified Coding Level of Care Code Est Pt Level 4 (56376) Diagnoses Cellulitis of skin L03.90 Time Spent (min) 20
[2025-01-02 15:01] VITALS: BP 110/80; PULSE 64; O2SAT 99
--- OUTSIDE RECORDS SUMMARY | 2025-01-02 15:23 | XMS_ITS ---
Author Name Nathan SAPNATonya Address [address] [place] [address] Phone [phone] Organization [facility] Care Team Providers Care Stock Wetter Name Role Phone Tonya Evans Unavailable [phone] Reason for Referral Not Available Allergies, adverse [...] Active 2024-04-03 N/A Other problems related to ga dical facilities and other health care Active 2024-04-03 N/A Encounters Encounters Type Facility Date of Service Diagnosis/Co mplaint New patient, 30-44min 1 stable chronic or 2 minor; add modifier 95 for video, modifier 93 [facility] Generalized anxiety disorderUnsp lack of expected normal physiol dev in childhoodDizziness and giddinessNoninfective gastroenteritis and colitis, unspecified New patient, 30-44min 1 stable chronic or 2 minor; add modifier 95 for video, modifier 93 for phone [facility]23 New patient, 30-44min 1 stable chronic or 2 minor; add modifier 95 for video, modifier 93 for phone [facility] 12/23/2023 New patient, 30-44min 1 stable chronic or 2 minor; add modifier 95 for video, modifier 93 for phone [facility] [place] 12/23/2023 New patient, 30-44min 1 stable chronic or 2 minor; add modifier 95 for video, modifier 93 for phone [facility] [place] 12/23/2023 New patient, 30-44min 1 stable chronic or 2 minor; add modifier 95 for video, modifier 93 for phone [facility] 12/23/2023 New patient, 30-44min 1 stable chronic or 2 minor; add modifier 95 for video, modifier 93 for phone [facility] 12/23/2023 New patient, 30-44min 1 stable chronic or 2 minor; add modifier 95 for video, modifier 93 for phone [facility] [place] 12/23/2023 No Data Available [facility] 04/[place]/2024 Allergy, unspecified, subsequent encounterOther problems related to medical facilities and other health care No Data Available [facility] 04/03/2024 No Data Available [facility] [place] 04/03/2024 Vital Signs Date of Collection Vitals 2023-12-23 13:30:38 Height - 177.8 cmWei ght - 72.58 kgBody Mass Index (BMI) - 22.96 kg/m2Pain Scale - 0.0 {score} Social History Sex Male History of Procedures Procedures Service Procedure code Service date Servicing provider Phone# New patient, 30-44min 1 stable chronic or 2 minor; add modifier 95 for video, modifier 93 for phone [id number] 2023-12-23 No Data Available No Data Available [...] No Data Availa ble No Data Available [id number] 2024-04-03 No Data Available No Data Available [...] he never had an allergy. I recommended processing operator apt for allergy study, I am not convinced that he was having an allergic reaction cg is also concerned that pt may not be able to administer the epipen due to decreased cognitionMonthly follow up calls with ptCONTINGENCY PLANWhy was the member in the hospital or ER most recently? Why are they most likely to go back?[facility] have a change in condition, [...]
--- OUTSIDE RECORDS SUMMARY | 2025-01-02 15:23 | XMS_ITS | Patient Health Record ---
Author Organization [facility] Address [address] [place] [address] Care Team Providers Care Utility System Repairer Name Role Phone LISA GEE Primary Care Provider Tariq Ramirez Unavailable [phone] Allergies No Known Allergies Reason For Referral [...] Problem Status W/U Status Risk Notes Problem 407197020 Encounter for screening for malignant neoplasm of colon (Z12.11) Active confirmed Problem History of polyp of colon (situation) (553811148) Personal history of colonic polyps (Z86.010) Active confirmed Problem Irritable bowel syndrome with diarrhea (095377414) Irritable bowel syndrome with diarrhea (K58.0) Active confirmed Problem Screening for malignant neoplasm of rectum (237569169) Encounter for screening for malignant neoplasm of rectum (Z12.12) Active confirmed Problem History of polyp of colon (527301463) History of colon polyps (Z86.010) Active confirmed Problem Chronic diarrhea (674864573) Chronic diarrhea (K52.9) Active confirmed Problem Diverticulosis of colon (371529863) Diverticulosis of colon (K57.30) Active confirmed Encounters Encounter Location Date Provider Diagnosis [facility] [address] [place] [address] 03/07/2024 Tariq Sethi Irritable bowel syndrome with [...] Insured Coverage Start Date Coverage End Date [facility] [address] [address] [place] [address] [id number] LORA FELIPE Self - patient is the insured Medical (General) History Medical History History ICD Code Denies ID,DM,CVA,Lung disease,renal dise ase Kidney stones Some cognitive delays since --sister, Abeba Richardson, is the legal guardian Colonoscopy 10/2016 with a small tubular adenoma removed COVID end of 11/2021 with some associated diarrhea Colonoscopy 01/2022 negative for polyps, IBD, and microscopic colitisi Negative laboratories for celiac disease in 2021 IBS with postprandial diarrhea Surgical History Surgery Date(Month/Year)
--- OUTSIDE RECORDS SUMMARY | 2025-01-02 15:24 | XMS_ITS ---
Author Organization [facility] Address [address] [place] [address] Care Team Providers Care De Icer Installer Name Role Phone LISA GEE Primary Care Provider Tariq Ramirez Unavailable [phone] Allergies No Known Allergies REASON FOR VISIT [...] Notes Problem Irritable bowel syndrome with diarrhea (448411754) Irritable bowel syndrome with diarrhea (K58.0) Active confirmed Vital Signs Temperature 98.2 degrees Fahrenheit 10/25/19 24 Blood pressure systolic 000 mm Hg 10/25/19 24 Blood pressure diastolic 00 mm Hg 024 Height 71 in 10/25/2023 Weight 160 lb 4 oz lbs 10/25/2023 BMI 22.35 kg/m2 10/25/2023 Encounters Encounter Location Date Provider Diagnosis [facility] [address] [place] [address] 10/25/2023 Tariq Sethi Irritable bowel syndrome with [...] disease, I did advise Lora and his auto body worker that this appears to be some chronic [...] disease, I did advise Lora and his auto body worker that this appears to be some chronic [...] Notes * LORA FELIPEDOB:[birth year] (57 yo M)Acc No.[id number]:10/25/2023 Progress Notes Patient:?LORA FELIPE Provider:?Tarqi Sethi MD :1965???Age:57 Y???Sex:Male Edenilson e:10/25/2023 Address:[address] [place], [place] [address], [place] Pcp:Mitul Mares MD Subjective: * Chief Complaints: * ???Patient presents today fo r RECTAL URGENCY * HPI: ???incontinence:? I saw Lora in followup today in regard to his chronic issues with postprandial diarrhea. He was accompanied by his auto body worker, Sybil. ?I last saw Lora in January [...] disease, I did advise Lora and his auto body worker that this appears to be some chronic [...] Procedure Codes:?3017F COLOR ECTAL CA SCREEN DOC [id number] TOBACCO [id number]-[id number] BP SCR NOT PRFRM REC REASON NOS * Follow Up:?prn * * Sign off status: Completed true * Provider:?Tariq Sethi MD Date:? 024 Generated for Jaelyn zuniga/Nakul/eTransmitting on:?01/02/2025 03:23 PM EDT History and Physical Notes * HPI (History of Present Illness) Category Sub-Category Detail Notes Category Not es incontinence I saw Lora in followup today in regard to his chronic issues with postprandial diarrhea. He was accompanied by his auto body worker, Sybil. I last saw Lora in January [...]
--- OUTSIDE RECORDS SUMMARY | 2025-01-02 15:24 | XMS_ITS | Data Portability ---
Author Organization [place] [facility] Address [address] [place] [id number] Assessment Encounter Date Assessment Date Assessment LastModified by Organization Details LastModified Time 05/27/2021 05/27/2021 Proper Personal Protective Equipment (PPE), including gloves, eye protection, masks, and gowns, shoe covers were donned and doffed appropriately and all equipment cleaned using approved technique with germicidal disposable wipes prior to and after care of this patient according to [facility]'s infection prevention protocols. The patient under our care today has requested testing for the COVID-19 virus. Currently, they are asymptomatic. Testing was discussed with the patient to ensure understanding of the limitations of this test, including the fact that a negative test does not entirely exclude the possibility of COVID-19 infection. Based on the history obtained and exam today, the decision was made to test for COVID-19 in light of the current pandemic state. The patient was involved in the decision to test using a shared medical decision-making model. 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 Lives alone in top floor apartment which is well kept. Patient denies any symptoms of illness, endorses contact with his sister and her two children who contracted COVID-19. Exam: ENT: TMs/ Canals clear without evidence of infection, no nasal discharge, no erythema/ exudate noted in oropharynx, moist mucous membranes, no lymphadenopathy CV: Normal HR, no rubs/ murmurs/ gallops heard, 2+ radial pulses bilaterally, no edema, 2+ DP/ PT pulses bilaterally Pulm: breath sounds clear and equal bilaterally, no wheeze/ rhonchi or rales on auscultation. Speaks in full sentences, no increased work of breathing. GI: Soft, non-tender to palpation. No masses, normal bowel sounds. DDx considered, but not limited to: exposure to communicable disease, viral syndrome, intellectually disability Work up/Results: SARD CoV-2 YOMAIRA Plan/Discussion: Collect SARS CoV-2 YOMAIRA collected to be sent to [facility] for analysis. Discussed the patient's need to remain self-quarantined regardless of his test result per CDC guidelines. Quarantine for 10 days from the start of symptoms and 24 hours with no fever and without antipyretic medication such as, Tylenol, or Advil (Acetaminophen or Ibuprofen respectively). COVID-19 symptoms include Fever or chills ? ? ? Cough ? ? ? Shortness of breath or difficulty breathing ? ? ? Fatigue ? ? ? Muscle or body aches ? ? ? Headache ? ? ? loss of taste or smell, sore throat, congestion or runny nose, nausea are gone. instruction discussed and provided. COVID test results should be completed in 2 to 4 days, you will receive a phone call with the results. Patient endorsed understanding and agrees with this plan. In order to obtain further information and compare any laboratory results/values, I have accessed patient records on the [facility]. This information was pertinent in my medical decision making today. [email or web address] Not available 05/27/2021 18:54:05 Plan of Treatment Reminders Order Date Submit Date Provider Last Modified By Organization Details Last Modified Time Details Appointments None recorded. Lab unlisted lab - covid-19 (novel coronaviru s) PCR 2020 021 RENAY [facility] (Centralized Electronic Ordering - All Locations), Patient Can Go To The Location Of Their Choice, [id number] 12:47:39 Referral None recorded. Procedures None recorded. Surgeries None recorded. Imaging None recorded. Medication Orders None recorded. Patient TargetsNo targets recorded. Patient Instructions Encounter Date Encounter Id Patient Instructions Last Modified By Organization Details Last Modified Time 05/27/2021 [id number] Thank you for entrusting us with your care. If you had laboratory studies sent to an external lab today, the results will be available in our patient portal. Please register for the patient portal to see your results. [facility] will contact you for any abnormal test results if we did not discuss them at the time of your care. We will also communicate the results to your primary care provider if you have one for any follow up needs you may have. Since you do not have symptoms currently, there is no recommendation to self-quarantine. Please continue to wash your hands and practice social distancing as recommended by your local government and public health agencies. If you develop mild symptoms, stay home and isolate yourself. Please continue to monitor the CDC website as the recommendations for length of quarantine change as additional information is released on this virus. Symptoms of Coronavirus What you need to know ? ? ? Anyone can have mild to severe symptoms. ? ? ? Older adults and people who have severe underlying medical conditions like heart or lung disease or diabetes seem to be at higher risk for developing more serious complications from COVID-19 illness. Watch for symptoms People with COVID-19 have had a wide range of symptoms reported ? ranging from mild symptoms to severe illness. Symptoms may appear 2-14 days after exposure to the virus. People with these symptoms may have COVID-19: ? ? ? Fever or chills ? ? ? Cough ? ? ? Shortness of breath or difficulty breathing ? ? ? Fatigue ? ? ? Muscle or body aches ? ? ? Headache ? ? ? New loss of taste or smell ? ? ? Sore throat ? ? ? Congestion or runny nose ? ? ? Nausea or vomiting ? ? ? Diarrhea This list does not include all possible symptoms. The CDC will continue to update this list as we learn more about COVID-19. When to Seek Emergency Medical Attention Look for emergency warning signs* for COVID-19. If someone is showing any of these signs, seek emergency medical care immediately ? ? ? Trouble breathing ? ? ? Persistent pain or pressure in the chest ? ? ? New confusion ? ? ? Inability to wake or stay awake ? ? ? Bluish lips or face *This list does not include all possible symptoms. Please call your medical provider for any other symptoms that are severe or concerning to you. Call 911 or call ahead to your local emergency facility: Notify the die operator that you are seeking care for someone who has or may have COVID-19. [email or web address] Not available 05/27/2021 18:37:39 Reason for Referral None Reported. Results Created Date Observation Date Name Description Value Unit Range Abnormal Flag Note LastModifiedBy Organization Detail LastModifiedTime 05/27/20 21 05/28/2021 COVID -19 (NOVE L CORON AVIRU S) PCR covid-19 PCR result (neg) NEGAT KYLE 2019- novel Coron aviru s (2019 -nCoV ) not detec jose angel by real- time RT-PC R. Note: If clini anhid suspi cion for COVID -19 is high, libia nue to maint ain preca ution s and consi jeanne repea t testi ng. Resul t repor jose angel to the [facility]. To preve nt error s in diagn osis, test resul ts shoul d be inter prete d in the sierra xt of clini nahid findi ngs and other labor atory data. Rare polym orphi sms exist that could lead to false -nega tive or false -posi tive resul ts. If resul ts obtai prudence do not match the clini nahid findi ngs, addit ional testi ng shoul d be consi dered . This test has been autho rized by the FDA under an Emerg ency Use Autho rizat ion (EUA) for use by autho rized labor atori es. Testi ng perfo rmed by real time PCR utili [employer] SARS- CoV-2 test. Not Available [facility] (Centralized Electronic Ordering - All Locations) Patient Can Go To The Location Of Their Choice, [id number] 05/28/2021 11:16:10 05/27/20 21 05/28/2021 COVID -19 (NOVE L CORON AVIRU S) PCR covid-19 PCR specimen source NASAL Not Available [facility] (Centralized Electronic Ordering - All Locations) Patient Can Go To The Location Of Their Choice, [id number] 05/28/2021 11:16:10 Result Notes None recorded. Medical Equipment None Reported. Allergies No known drug allergies Vitals Date Recorded Heart rate Respiratory rate Body temperature Oxygen saturation Oxygen saturation in Arterial blood by Pulse oximetry Systolic blood pressure Diastolic blood pressure Provider Name and Address Organization Details Last Updated DateTime 1 97 /min 18 /min 97.8 [degF] 99 % 99 % 116 mm[Hg] 74 mm[Hg] Not Available [facility] 18:38:31 Social History Question Answer Notes LastModified by Organizat ion Details LastModified Time Tobacco Smoking Status Never Smoker VINCE ARAUJO, SAPNA [facility] [address], [place], [address], [place] [facility] 05/27/2021 18:36:49 Do You Have An Advance Directive? Yes [email or web address] Information not available 05/27/2021 What Is Your Level Of Alcohol Consumption? None [email or web address] Information not available 05/27/2021 What Is Your Code Status? Full Code Information not available 05/27/2021 Excessive Alcohol Or Drug Use No [email or web address] Information not available 05/27/2021 Does This Patient Have A PCP? Yes [email or web address] Information not available 05/27/2021 Do You Use Any Illicit Or Recreational Drugs? No [email or web address] Information not available 05/27/2021 Do You Or Have You Ever Used Any Other Forms Of Tobacco Or Nicotine? No [email or web address] Information not available 05/27/2021 Sex: Unknown Functional Status None recorded. Mental Status None recorded. Family History Nothing Reported Notes:doesn't know his famil y medical history Medical History Condition Response Coronary Artery Disease N COPD N Depression N Diabetes N Cancer N Stroke N Asthma N High Cholesterol N Pulmonary Embolism N Hypertension N Kidney Disease N Past Encounters Encounter ID Performer Location Encounter Start Date Encounter Closed Date Diagnosis/Indication Diagnosis SNOMED-CT Code Diagnosis ICD10 Code Diagnosis Note [id number] VINCE ARAUJO NP [facility] [address] [place] [address] 05/27/2021 18:33:10 06/02/2021 09:05:26 Viral syndrome 437773343 B34.9 Exposure t o communicable disease 629334405 Z20.822 Health Concerns Section Related Observation LastModified by Organization Detai ls LastModified Time None Recorded Concern Status LastModified by Organization Details LastModified Time None Recorded Advance Directives Directive Y: Payers Insurance Date Sequence Insurance Name Policy Number Policy Doyle Covered Member ID Doyle Member ID Guarantor Name 06/02/2021 1 *SELF PAY* Stevan Andrade [id number] Stevan Andrade 06/05/2021 2 [place] [facility] Stevan Andrade [id number] Stevan Andrade 06/02/2021 1 [place] B[place] [employer] Stevan Andrade [id number] Stevan Andrade 06/05/2021 1 [place] [employer] Stevan Andrade [id number] Stevan Raymond Notes Date Note Type Note Provider Name and Address Organization Details Recorded Time 05/27/2021 text/html 55 yo male who i s new to and to this provider. He felix any PMHx and denies any symptoms. He endorses that his sister and her two kids got COVID and he has been in contact with them. Per note provided during booking of today's appointment patient is intellectually disabled. He denies any fever, chills, headache, runny nose, congestion, cough, sore throat, chest pain, palpitations, abdominal pain, nausea, vomiting or diarrhea. VINCE ARAUJO NP [address] [place] [address] [place], [place], [address], [place] [facility] 05/27/2021 18:55:21
--- OUTSIDE RECORDS SUMMARY | 2025-01-02 15:24 | XMS_ITS ---
Author Organization [facility] Address [address] [address] Care Team Providers Care Television Repairman Name Role Phone LISA GEE Primary Care Provider Татьяна SethiTariq Unavailable [phone] REASON FOR VISIT pt needs r/f on [...] Active Encounters Encounter Location Date Provider Diagnosis [facility] [address] [address] 03/07/2024 Tariq Sethi Irritable bowel syndrome with [...] Notes * LORA FELIPEDOB:[birth year] (58 yo M)Acc No.[id number]:03/07/2024 Patient:?LORA FELIPE :1965???Age:58 Y???Sex:Male Address:[address] [place] [address], [place] [address] * Refills? Refill Imodium A-D Tablet, 2 MG, Orally, 100, use 1 or 2 tablets, Use 15-30 minutes before a meal to prevent diarrhea, and use every 6 hours as needed for diarrhea. You may use up to 8 pills over the course of a day., 30 days, Refills=6 * true * Date:? Generated for Jaelyn zuniga/Nakul/eTransmitting on:?01/02/2025 03:23 PM EDT
== END 2025-01-02 15:29 | disposition home or self-care (01) ==
PROVIDERS: PCP Nurse Practitioner Family; Visit Provider Nurse Practitioner Family
DX: L03.90 Cellulitis, unspecified (principal)

== ENCOUNTER → 2025-01-02 14:41 | Outpatient (BNVA) | payer MEDICARE, SELFPAY | PROVIDERS: PCP Nurse Practitioner Family; Visit Provider Nurse Practitioner Family | DX: L03.90 Cellulitis, unspecified (principal) | CPT/HCPCS: 99212 ==

== ENCOUNTER 2025-04-17 14:55 | Outpatient (AMB) | payer MEDICARE, SELFPAY ==
--- OUTSIDE RECORDS SUMMARY | 2025-04-17 14:58 | XMS_ITS ---
Author Name Tonya Evans NP Address [address] [place] [address] Phone [phone] Organization [facility] Team Providers Care Inspector Aide Name Role Phone Tonya Evans Unavailable [phone] Reason for Referral Not Available Allergies, adverse [...] List Problem Status Onset Date Resolved Date Synopsis Developmental delay Active 2023-12-23 N/A unkno wn cause, not autism, possibly injury during , no cause identified RAMESH (generalized anxiety disorder) Active 2023-12-23 N/A escitalopram, bu spirone, hydroxyzine Dizziness Active 2023-12-23 N/A meclizinef/u w ith pcp annually Chronic diarrhea Active 2023-12-23 N/A loperami de prnf/u with pcp annually Allergy Active 2024-04-03 N/A pt had facial swelling reported by his co workers rxed epipen. HCP is concerned about pt ability to safely carry an epipen , he never had an allergy. I recommended application development director apt for allergy study, I am not convinced that he was having an allergic reaction cg is also concerned that pt may not be able to administer the epipen due to decreased cognition Other problems related to medical facilities and other health care Active 2024-04-03 N/A Monthly follow u p calls with ptCONTINGENCY PLANWhy was the member in the hospital or ER most recently? Why are they most likely to go back?Please call [facility] if you have a change in condition, Blood pressure > 170/90Fall, any unusual symptoms or have any medical questions! Encounters Encounters Type Facility Date of Service Diagnosis/Co mplaint New patient, 30-44min 1 stable chronic or 2 minor; add modifier 95 for video, modifier 93 for [facility] [place] 12/23/2023 Generalized anxiety disorderUnsp lack of expected normal physiol dev in childhoodDizziness and giddinessNoninfective gastroenteritis and colitis, unspecified New patient, 30-44min 1 stable chronic or 2 minor; add modifier 95 for video, modifier 93 for [facility] ([place] 12/23/2023 New patient, 30-44min 1 stable chronic or 2 minor; add modifier 95 for video, modifier 93 for [facility] [place] 12/23/2023 New patient, 30-44min 1 stable chronic or 2 minor; add modifier 95 for video, modifier 93 for [facility] [place] 12/23/2023 New patient, 30-44min 1 stable chronic or 2 minor; add modifier 95 for video, modifier 93 for [facility] [place] 12/23/2023 New patient, 30-44min 1 stable chronic or 2 minor; add modifier 95 for video, modifier 93 for [facility] [place] 12/23/2023 New patient, 30-44min 1 stable chronic or 2 minor; add modifier 95 for video, modifier 93 for phone [facility] 12/23/2023 New patient, 30-44min 1 stable chronic or 2 minor; add modifier 95 for video, modifier 93 for phone [facility] [place] 12/23/2023 No Data Available [facility] [place] 04/03/2024 Allergy, unspecified, subsequent encounterOther problems related to medical facilities and other health care No Data Available [facility] [place] 04/03/2024 No Data Available [facility] ([place] 04/03/2024 Vital Signs Date of Collection Vitals 2023-12-23 13:30:38 Height - 177.8 cmWei ght - 72.58 kgBody Mass Index (BMI) - 22.96 kg/m2Pain Scale - 0.0 {score} Social History Sex Male History of Procedures Procedures Service Procedure code Service date Servicing provider Phone# New patient, 30-44min 1 stable chronic or 2 minor; add modifier 95 for video, modifier 93 for phone [id number] No Data Available No Data Available [...] Available Advance care planning discussed and documented advance care plan or surrogate decision-maker was documented in the medical record. (1123F) 1123F 2023-12-23 No Data Available No Data Availa ble No Data Available [address] 2024-04-03 No Data Available No Data Available [...] modifier 95Advance care planning discussed and documented advance care plan or surrogate decision-maker was documented in the medical record. (1123F)Pain Assessment - Pain Documented (1125F)Continue to see PCP. Follow-up with Glenn as needed for any acute or disease education needs that may arise 20/03.unknown cause, not autism, possibly injury during , no cause identifiedescitalopram, buspirone, hydroxyzinemeclizinef/u with pcp annuallyloperamide prnf/u with pcp annually 2024-04-03 08:05:19 Phone (patient, pare nt, or guardian); 5-10 minutes of medical discussion (no modifier 95)Continue to see PCP. Follow-up with Glenn as needed for any acute or disease education needs that may arise 20/03.pt had facial swelling reported by his co workers rxed epipen. HCP is concerned about pt ability to safely carry an epipen , he never had an allergy. I recommended application development director apt for allergy study, I am not convinced that he was having an allergic reaction cg is also concerned that pt may not be able to administer the epipen due to decreased cognitionMonthly follow up calls with ptCONTINGENCY PLANWhy was the member in the hospital or ER most recently? Why are they most likely to go back?Please call [facility] if you have a change in condition, Blood pressure > 170/90Fall, any unusual symptoms or have any medical questions! Health Concerns Date Concern 2024-04-03 Visit completed via audio by telephone. Patient/Guardian agreed to visit via telehealth.Time spent in visit: 5 min 2024-04-03 Most recent hospital stay(s) or ER visit(s) and precipitating factors: denies er visit 2024-04-03 DELVIN review: Review ed
--- OUTSIDE RECORDS SUMMARY | 2025-04-17 14:59 | XMS_ITS | Patient Health Record ---
Author Organization [facility] Address [address] [place] [address] Care Team Providers Care Marketing Research Coordinator Name Role Phone LISA GEE Primary Care Provider Tariq Ramirez Unavailable [phone] Allergies No Known Allergies Reason For Referral [...] Problem Status W/U Status Risk Notes Problem 029686854 Encounter for screening for malignant neoplasm of colon (Z12.11) Active confirmed Problem History of polyp of colon (situation) (406606213) Personal history of colonic polyps (Z86.010) Active confirmed Problem Irritable bowel syndrome with diarrhea (190955851) Irritable bowel syndrome with diarrhea (K58.0) Active confirmed Problem Screening for malignant neoplasm of rectum (804212179) Encounter for screening for malignant neoplasm of rectum (Z12.12) Active confirmed Problem History of polyp of colon (897601087) History of colon polyps (Z86.010) Active confirmed Problem Chronic diarrhea (612665595) Chronic diarrhea (K52.9) Active confirmed Problem Diverticulosis of colon (457897573) Diverticulosis of colon (K57.30) Active confirmed Plan Of Treatment Pending Test Test Name [...] Insured Coverage Start Date Coverage End Date [facility] [address] [address] [place] [address] [id number] LORA FELIPE Self - patient is the insured Medical (General) History Medical History History ICD Code Denies DC,DM,CVA,Lung disease,renal dise ase Kidney stones Some cognitive delays since --sister, Abeba Richardson, is the legal guardian Colonoscopy 10/2016 with a small tubular adenoma removed COVID end of 11/2021 with some associated diarrhea Colonoscopy 01/2022 negative for polyps, IBD, and microscopic colitisi Negative laboratories for celiac disease in 2021 IBS with postprandial diarrhea Surgical History Surgery Date(Month/Year)
--- NOTE | 2025-04-17 15:04 | A.OFFPC_ITS ---
Vital Signs 04/17/25 15:05 Height 5 ft 10 in Weight 167 lb BMI 24.0 BP 112/70 Blood Pressure Location Rt brachial Position Sitting Respiration 16 Pulse 64 Pulse Source Pulse Oximeter Temp 98.2 F Temp Source Oral Pulse Oximetry (%) 98 Oxygen Delivery Method Room Air Intake Visit Reasons: ANNUAL PE - see comments Insurance Investigator Required: No Accompanied by: Self / Same As Patient Allergies almond Allergy (Mild, Verified 04/17/25 15:19) Unknown apple Allergy (Mild, Verified 04/17/25 15:19) Unknown birch Allergy (Mild, Verified 04/17/25 15:19) Unknown arechiga Allergy (Mild, Verified 04/17/25 15:19) Unknown hazelnut Allergy (Mild, Verified 04/17/25 15:19) Unknown oak Allergy (Mild, Verified 04/17/25 15:19) Unknown peach Allergy (Mild, Verified 04/17/25 15:19) Unknown Seasonal Allergies Allergy (Mild, Verified 04/17/25 15:19) Runny Nose willow Allergy (Mild, Verified 04/17/25 15:19) Unknown beech Allergy (Mild, Uncoded 04/17/25 15:19) Unknown cottonwood Allergy (Mild, Uncoded 04/17/25 15:19) Unknown elm Allergy (Mild, Uncoded 04/17/25 15:19) Unknown hickory/pecan tree Allergy (Mild, Uncoded 04/17/25 15:19) Unknown Malinda Grass ([place] blue) (G8) IGE Allergy (Mild, Uncoded 04/17/25 15:19) Unknown maple (box elder) Allergy (Mild, Uncoded 04/17/25 15:19) Unknown meadow fescue (G4) IGE Allergy (Mild, Uncoded 04/17/25 15:19) Unknown Peanut (F13) IGE Allergy (Mild, Uncoded 04/17/25 15:19) Unknown Pear (F94) IGE Allergy (Mild, Uncoded 04/17/25 15:19) Unknown red top grass Allergy (Mild, Uncoded 04/17/25 15:19) Unknown walnut tree Allergy (Mild, Uncoded 04/17/25 15:19) Unknown lactose intollerance Adverse Reaction (Severe, Uncoded 04/17/25 15:19) Diarreha Medication List - Last Reconciled 04/17/25 by Fer Fernandez, [facility]- buspirone 15 mg PO BID cephalexin 500 mg PO Q12H 5 days cetirizine 10 mg PO DAILY diphenoxylate-atropine 2.5-0.025 mg 1 tab PO BID PRN epinephrine (EpiPen) 0.3 mg (0.3 mL) IM Q4H PRN escitalopram oxalate 20 mg PO DAILY hydroxyzine HCl 50 mg PO BID magnesium oxide 400 mg PO DAILY meclizine 25 mg PO BID PRN 12 days sertraline (Zoloft) 100 mg PO DAILY Tobacco use date assessed: 04/17/25 Dental Screening Dental Screen Date: 04/17/25 Did you have a dental visit in the last 12 months?: Yes Did you have a dental problem in the last 6 months where you did not have access to dental care?: No Was dental information given to patient?: Patient has dentist HPI ANNUAL PE - see comments HPI Details History of Present Illness The patient is a 59-year-old male presenting for a follow-up physical examination. The patient has a history of Irritable Bowel Syndrome (IBS), which has been causing abdominal cramping and frequent diarrhea, typically occurring 15 to 20 minutes after eating. He is currently on medication for IBS, but continues to experience frequent bowel movements postprandially. A follow-up with a long haul truck driver has been recommended to assess the need for medication adjustment. The patient denies any chest pain, shortness of breath, fever, chills, blood in stool, urinary issues, nausea, vomiting, or any psychiatric symptoms such as suicidal or homicidal ideation. He reports doing well overall and his colonoscopy is up to date. Health Maintenance Social History Review of Systems - Cardiovascular: Denies chest pain or s hortness of breath. - Gastrointestinal: Reports abdominal cr amping and diarrhea after eating. Denies blood in stool, nausea, or vomiting. - Genitourinary: Denies urinary issues. - Psychiatric: Denies suicidal or homici scooter ideation. - General: Denies fever or chills. Repor ts doing well overall. Physical Exam General: Cooperative, healthy appearing, comfortable, no acute distress and well developed Orientation: Patient oriented x3 Limitations: cognitive impairment Head: Normal to inspection Ears: Hearing grossly normal bilaterally Nose: Normal external nose present Face and sinus: Normal facial exam Eyes: Appearance normal, both eyes and all related structures Neck: Normal visual inspection and Yes full ROM Respiratory: Normal respiratory effort and able to speak in complete sentences. Clear to auscultation bilaterally Cardiovascular: Regular rate and rhythm. Normal S1 and S2 GI: Normal to inspection. Soft to palpation and nontender : testicles without masses/lesions and no hernias appreciated Skin: No rashes or lesions noted Neuro: Patient oriented x3 Extremities: Normal to inspection Results Plan The patient is advised to continue his current medication for Irritable Bowel Syndrome IBS) but should follow up with a long haul truck driver to evaluate the need for any adjustments due to persistent symptoms. His colonoscopy is up to date, which is a positive aspect of his preventative care. [facility] Medical History Cellulitis of skin Hypersomnia Snoring Cognitive impairment Intellectual disability History of COVID-19 Renal calculi Surgical History Hx of lithotripsy Hx of cystoscopy H/O colonoscopy (~02/21/22) Social History Alcohol intake: never Patient Tobacco Use Status: Never used Tobacco Cognitive needs: No Hearing needs: No Vision needs: No Questionnaire Thrive Questionnaire Date Thrive assessed: 09/19/24 I am a: Patient What is your living situation today?: I have a steady place to live Within the past 12 months, did the food you bought not last and you didn't have the money to get more?: Never true Within the past 12 months, did you worry whether your food would run out before you got money to buy more?: Never true Do you have trouble paying for medicines?: No Do you have trouble getting transportation to medical appointments?: No Do you have trouble paying your heating and electricity bill?: No Do you have trouble taking care of your child, family member or friend?: No Do you have trouble with day-to-day activities such as bathing, preparing meals, shopping, managing finances, etc.?: No Are you currently unemployed and looking for a job?: No Are you interested in more education?: No Please select the resources that you would like help with: None Currently or been in a relationship where the following occur: No concerns reported THRIVE Score: 0 RAMESH-7 AMB Questionnaire RAMESH-7 Date RAMESH - 7 assessed: 09/19/24 Source: Developed by Drs. Tariq Severino, Peri Monroe, Robert Molina and colleagues, with an educational christiane from [employer]. Physical exam (Primary Care) Vital Signs: Last Vital Signs Pulse 64 04/17/25 15:05 Resp 16 04/17/25 15:05 BP 112/70 04/17/25 15:05 Pulse Ox 98 04/17/25 15:05 Oxygen Delivery Method Room Air 04/17/25 15:05 BMI result Body Mass Index 24.0 Tobacco/Smoking Status: Tobacco use Status Tobacco use date assessed 09/19/24 09/19/24 10:03 Patient Tobacco Use Status Never used Tobacco 01/02/25 14:56 Thrive Assessment: Date of Thrive Assessment Date Thrive assessed 09/19/24 09/19/24 10:03 Currently or been in a relationship where the following occur: No concerns reported Coding Level of Care Code Est Pt Prev Care 40-64y(92463) Diagnoses IBS (irritable bowel syndrome) K58.9 Encounter for routine adult physical exam with abnormal findings Z. Vitamin D deficiency E55.9 Assessment & Plan Assessment & Plan (1) IBS (irritable bowel syndrome): Code(s): K58.9 - Irritable bowel syndrome, unspecified Category: Medical (2) Encounter for routine adult physical exam with abnormal findings: Code(s): Z. - Encounter for general adult medical examination with abnormal findings Category: Medical (3) Vitamin D deficiency: Code(s): E55.9 - Vitamin D deficiency, unspecified Category: Medical Plan . Orders: Orders Complete Blood Count Auto Diff Today Z00. - Encounter for general adult medical examination with abnormal findings UA CC w/rflx Micro + Cult Today Z00. - Encounter for general adult medical examination with abnormal findings Comprehensive [place]. Panel Fast Today Z00.01 - Encounter for general adult medical examination with abnormal findings TSH reflex Free T4 Today Z00.01 - Encounter for general adult medical examination with abnormal findings Lipid Panel Today Z00.01 - Encounter for general adult medical examination with abnormal findings Vitamin D 25-OH Total Today E55.9 - Vitamin D deficiency, unspecified
[2025-04-17 15:05] VITALS: BP 112/70; PULSE 64; RESP 16; TEMP 36.8; O2SAT 98; BMI 24.0
== END 2025-04-17 15:50 | disposition home or self-care (01) ==
LOC: HO.HMCC 14:56
PROVIDERS: PCP Nurse Practitioner Family; Visit Provider Nurse Practitioner Family
DX: K58.9 Irritable bowel syndrome, unspecified (principal); Z00.01 Encounter for general adult medical examination with abnormal findings; E55.9 Vitamin D deficiency, unspecified

== ENCOUNTER → 2025-04-17 14:55 | Outpatient (BNVA) | payer MEDICARE, SELFPAY | PROVIDERS: PCP Nurse Practitioner Family; Visit Provider Nurse Practitioner Family | DX: Z00.01 Encounter for general adult medical examination with abnormal findings (principal); K58.9 Irritable bowel syndrome, unspecified; E55.9 Vitamin D deficiency, unspecified | CPT/HCPCS: 99396 ==

== ENCOUNTER 2025-06-24 14:06 | Outpatient (AMB) | payer MEDICARE, SELFPAY ==
[2025-06-24 14:28] VITALS: BP 118/66; PULSE 75; O2SAT 95; BMI 23.7
--- NOTE | 2025-06-24 14:28 | MHC.OFFVIS ---
Vital Signs 06/24/25 14:28 Height 5 ft 10 in Weight 165 lb 8 oz BMI 23.7 BP 118/66 Blood Pressure Location Rt brachial Position Sitting Pulse 75 Pulse Source Pulse Oximeter Pulse Oximetry (%) 95 Oxygen Delivery Method Room Air Intake Visit Reasons: 6mon follow-up Intake Note: Patient presents follow up Cognitive/Sleep. Accompanied by: Spouse Allergies almond Allergy (Mild, Verified 06/24/25 14:31) Unknown apple Allergy (Mild, Verified 06/24/25 14:31) Unknown birch Allergy (Mild, Verified 06/24/25 14:31) Unknown arechiga Allergy (Mild, Verified 06/24/25 14:31) Unknown hazelnut Allergy (Mild, Verified 06/24/25 14:31) Unknown oak Allergy (Mild, Verified 06/24/25 14:31) Unknown peach Allergy (Mild, Verified 06/24/25 14:31) Unknown Seasonal Allergies Allergy (Mild, Verified 06/24/25 14:31) Runny Nose willow Allergy (Mild, Verified 06/24/25 14:31) Unknown beech Allergy (Mild, Uncoded 04/17/25 15:19) Unknown cottonwood Allergy (Mild, Uncoded 04/17/25 15:19) Unknown elm Allergy (Mild, Uncoded 04/17/25 15:19) Unknown hickory/pecan tree Allergy (Mild, Uncoded 04/17/25 15:19) Unknown Malinda Grass ([place] blue) (G8) IGE Allergy (Mild, Uncoded 04/17/25 15:19) Unknown maple (box elder) Allergy (Mild, Uncoded 04/17/25 15:19) Unknown meadow fescue (G4) IGE Allergy (Mild, Uncoded 04/17/25 15:19) Unknown Peanut (F13) IGE Allergy (Mild, Uncoded 04/17/25 15:19) Unknown Pear (F94) IGE Allergy (Mild, Uncoded 04/17/25 15:19) Unknown red top grass Allergy (Mild, Uncoded 04/17/25 15:19) Unknown walnut tree Allergy (Mild, Uncoded 04/17/25 15:19) Unknown lactose intollerance Adverse Reaction (Severe, Uncoded 04/17/25 15:19) Diarreha HPI Comments Details: 59 y/o male with mild intellectual disability comes for a follow up of cognitive issues. He is feeling better since he started using CPAP therapy consistently for PAULA. PAULA Compliance Report February 2025 to May 2025 Total avg use is 89/90 98% >4 hours 6hours 59 min press 9.2cmH20 and leaks 0.7cmH20 AHI 7.9 Washes mask, rinses the hoses, changes filters and fills reservoir w/water He had a cognitive evaluation at [facility] speech and they did not think therapy will help him. His cognitive issues are probably lifelong disabilities.He is accompanied by his field crop farmworker Ngoc. He was diagnosed with sleep apnea and is on CPAP therapy now, and places his mask on then goes to bed at 8pm, wakes up at 6am. Ngoc spends 18 hours a week with him to include Mon and Mon. He states now he can remembers more tasks, can hold on to the information for longer period of time. He picks at the bridge of his nose and has a skin picking disorder, skin on the bridge of his nose becomes ulcerated.We discussed wearing cpap liners with a chin strap and perhaps he should trial a larger full face mask. He denies morning headaches, has dizzines and vertigo in the AM. He works 3 days per week, Mon, , and Fridays 9am to 2pm. He watches tv when not working and goes to social groups 2 days a week. His mood is stable with sertraline 150mg was added in January for the skin reaction and hydroxine 50mg for anxiety. He gets anxious if the bus is late, or 30min prior to beginning work. He would leave work at 2pm to get to the Nurse at 4pm as he is afraid of the bus taking too long to get him to his appt.He has therapy / with group, and one on one talk therapy was not productive, now he is more socially engaged with group therapy and enjoys his time there. 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 The stools leak from his underwear and he has a fear of eating due to the disorder. He uses Immodium AD 1-2 hours prior to meals and is being followed by Dr. Tovar in GI. RLS is worse, it wakes him up at night, with a discomfort in his calves that migrates up to the thighs. He gets up and out of bed several times a night to stretch his feet. History from last visit-He reports short term memory issues since his COVID infection about 1 year ago.He frequently repeats himself, forgets his schedule, repeats questions, needs prompting for eating slowly etc. He lives on his own but independent in all ADLs.He has a nurse that administers his medications. He forgets conversations. 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 yesterday instead of taking his regular transportation he got on a vehicle with an unknown person and did not get to work. He called his worker to pick him up but was unable to tell her where he was. [facility] Medical History Cellulitis of skin Hypersomnia Snoring Cognitive impairment Intellectual disability History of COVID-19 Renal calculi Surgical History Hx of lithotripsy Hx of cystoscopy H/O colonoscopy (~02/21/22) Social History Alcohol intake: never Patient Tobacco Use Status: Never used Tobacco Cognitive needs: No Hearing needs: No Vision needs: No Review of Systems Neuro Reports confusion Psych Reports confusion Physical Exam Vital Signs: Last Vital Signs Pulse 75 06/24/25 14:28 BP 118/66 06/24/25 14:28 Pulse Ox 95 06/24/25 14:28 Oxygen Delivery Method Room Air 06/24/25 14:28 BMI result Body Mass Index 23.7 Const General: cooperative, healthy appearing, comfortable and confusion Nutritional Appearance: average body habitus Orientation/consciousness: confusion Eyes Pupils: Equal, round and reactive pupils present Neuro General: tone normal, moves all extremities, no focal motor deficits and confusion Cranial nerves: Yes Equal, round and reactive pupils present, Yes Bilaterally intact EOM present, Yes Nystagmus not present, Yes Normal facial strength present and Yes Midline tongue present Cognition (Neuro): abnormal cognition Gait exam (Neuro): Antalgic gait present Motor exam (neuro): 5/5 motor strength present throughout and Normal motor muscle tone present throughout Coordination: [id number] test normal Orientation What is the (year) (season) (date) (day) (month)?: season, day and month Where are we (state) (county) (town or city) (hospital) (floor)?: state, county, town or city and floor Registration Name of 3 unrelated objects clearly and slowly, then ask patient to repeat all 3 of them. (1st repeat determines score. Make sure they can repeat all three): object 1, object 2 and object 3 Recall Ask patient to repeat the 3 items from question #3.: object 1, object 2 and object 3 Language Show patient a wristwatch & ask what it is. Repeat for pencil.: watch and pencil Ask the patient to 'take a piece of paper with their right hand' 'fold paper in half' 'place paper on floor': take paper in right hand, fold paper in half and place paper on floor Print the sentence 'CLOSE YOUR EYES' on a piece. If patient actually closes eyes then score.: followed written direction Score Score: 19 Results Reviewed Results Reviewed: IMPRESSION: Unremarkable EEG. MR/MR head/brain wo con IMPRESSION: Normal brain MRI, apart from partially empty sella. Assessment & Plan Assessment & Plan (1) Excessive daytime sleepiness: Code(s): G47.19 - Other hypersomnia Category: Medical (2) PAULA on CPAP: Code(s): G47.33 - Obstructive sleep apnea (adult) (pediatric); Z99.89 - Dependence on other enabling machines and devices Category: Medical (3) Leg cramps: Code(s): R25.2 - Cramp and spasm Category: Medical (4) Cognitive impairment: Comment: mild Cognitive impairment Code(s): R41.89 - Other symptoms and signs involving cognitive functions and awareness Category: Medical (5) Snoring: Code(s): R06.83 - Snoring Category: Medical (6) Hypersomnia: Code(s): G47.10 - Hypersomnia, unspecified Category: Medical Plan PAULA on cpap therapy and compliant. Due to his cognitive disorder patient needs transportation to and from work. RLS / Leg cramps declines pt and meds. Continue magnesium oxide for leg cramps, may hold for loose stools. Anxiety continue Buspirone and Sertraline 100mg po daily. F/u group social therapy MMSE was 19/30 and ngoc states he is improving. F/u in 6 months and call office if you need anything. Orders: Orders Comprehensive Met. Panel 06/24/25 G47.19 - Other hypersomnia, R25.2 - Cramp and spasm Ferritin 06/24/25 G47.19 - Other hypersomnia, R25.2 - Cramp and spasm Hemoglobin A1c 06/24/25 G47.19 - Other hypersomnia, R25.2 - Cramp and spasm Methylmalonic Acid 06/24/25 G47.19 - Other hypersomnia, G47.9 - Sleep disorder, unspecified, R25.2 - Cramp and spasm, R53.83 - Other fatigue Homocysteine 06/24/25 G47.19 - Other hypersomnia, G47.9 - Sleep disorder, unspecified, R25.2 - Cramp and spasm, R53.83 - Other fatigue Vitamin B12 and Folate 06/24/25 G47.19 - Other hypersomnia, R25.2 - Cramp and spasm Complete Blood Count no Diff 06/24/25 G47.19 - Other hypersomnia, R25.2 - Cramp and spasm Lipid Panel with Reflex 06/24/25 G47.19 - Other hypersomnia, R25.2 - Cramp and spasm IRON PROFILE 06/24/25 G47.19 - Other hypersomnia, G47.9 - Sleep disorder, unspecified, R25.2 - Cramp and spasm, R53.83 - Other fatigue Vitamin D 25-OH Total 06/24/25 G47.19 - Other hypersomnia, R25.2 - Cramp and spasm TSH reflex Free T4 06/24/25 G47.19 - Other hypersomnia, R25.2 - Cramp and spasm Patient Instructions: Sleep Hygiene provided: set a scheduled bedtime and wake time to help regulate the circadian rhythm and balance the release of pituitary hormones. Sleep in a dark room, temperatures below 68 degrees, and no devices n bed. Limit caffeinated products 6 hours prior to bed, and limit fluids 2-4 hours prior to bed. Gentle night yoga, diffusing essential oils, and playing soft music can be relaxing. Coding Level of Care Code Est Pt Level 4 (31423) Diagnoses Excessive daytime sleepiness G47.19 PAULA on CPAP G47.33; Z99.89 Leg cramps R25.2 Cognitive impairment R41.89 Snoring R06.83 Hypersomnia G47.10
--- OUTSIDE RECORDS SUMMARY | 2025-06-24 18:31 | XMS_ITS ---
Author Name Tonya Evans NP Address [address] [place] [address] Phone [phone] Organization [facility] Care Team Providers Care Violin Restorer Name Role Phone Tonya Evans Unavailable [phone] Reason for Referral Not Available Allergies, adverse [...] he never had an allergy. I recommended pre owned sales manager apt for allergy study, I am not [...] they most likely to go back?Please call [employer] if you have a change in condition, Blood pressure > 170/90Fall, any unusual symptoms or have any medical questions! Encounters Encounters Type Facility Date of Service Diagnosis/Co mplaint New patient, 30-44min 1 stable chronic or 2 minor; add modifier 95 for video, modifier [facility] Generalized anxiety disorderUnsp lack of expected normal physiol dev in childhoodDizziness and giddinessNoninfective gastroenteritis and colitis, unspecified New patient, 30-44min 1 stable chronic or 2 minor; add modifier 95 for video, modifier 93 for [facility] New patient, 30-44min 1 stable chronic or 2 minor; add modifier 95 for video, modifier 93 for [facility] New patient, 30-44min 1 stable chronic or 2 minor; add modifier 95 for video, modifier 93 for [facility] New patient, 30-44min 1 stable chronic or 2 minor; add modifier 95 for video, modifier 93 for [facility] 12/[facility]23 New patient, 30-44min 1 stable chronic or 2 minor; add modifier 95 for video, modifier 93 for [facility]23 New patient, 30-44min 1 stable chronic or 2 minor; add modifier 95 for video, modifier 93 for phone [facility] [place]23/2023 New patient, 30-44min 1 stable chronic or 2 minor; add modifier 95 for video, modifier 93 for phone [facility] 12/23/2023 No Data Available [facility] ([place] 04/03/2024 Allergy, unspecified, subsequent encounterOther problems related to medical facilities and other health care No Data Available [facility] 04/03/2024 No Data Available [facility] ([place] 04/03/2024 Vital Signs Date of Collection Vitals 2023-12-23 13:30:38 Height - 177.8 cmWei ght - 72.58 kgBody Mass Index (BMI) - 22.96 kg/m2Pain Scale - 0.0 {score} Social History Sex Male History of Procedures Procedures Service Procedure code Service date Servicing provider Phone# New patient, 30-44min 1 stable chronic or 2 minor; add modifier 95 for video, modifier 93 for phone [phone] No Data Available No Data Available [...] No Data Availa ble No Data Available [id number] 2024-04-03 No Data Available No Data Available [...] he never had an allergy. I recommended pre owned sales manager apt for allergy study, I am not convinced that he was having an allergic reaction cg is also concerned that pt may not be able to administer the epipen due to decreased cognitionMonthly follow up calls with ptCONTINGENCY PLANWhy was the member in the hospital or ER most recently? Why are they most likely to go back?Please call [facility] if you have a change in condition, [...]
--- OUTSIDE RECORDS SUMMARY | 2025-06-24 18:31 | XMS_ITS | Patient Health Record ---
Author Organization [facility] Address [address] [place] [address] Care Team Providers Care Mirror Framer Name Role Phone LISA GEE Primary Care Provider Tariq Ramirez Unavailable [phone] Allergies No Known Allergies Reason For Referral No Information Medications Medication SIG (Take, Route, Frequency, Duration) Notes Start Date End Date Status busPIRone HCl 15 MG TAKE ONE AND ONE GONZALES F (1.5) TABLETS BY MOUTH TWICE A DAY Oral; Duration: 90 Active Diphenoxylate-Atropine 2.5-0.025 MG TAKE 1 TABLET BY MOUTH TWICE A DAY NEEDED Oral; Duration: 30 Active Escitalopram Oxalate 20 MG TAKE 1 TABLET BY MOUTH EVERY DAY Oral; Duration: 90 Active Imodium A-D 2 MG use 1 or 2 tablets O rally Use 15-30 minutes before a meal to prevent diarrhea, and use every 6 hours if needed for diarrhea. You may use up to 8 pills over the course of a day.; Duration: 30 days Active hydrOXYzine HCl 50 MG TAKE 1 TABLET BY M OUTH TWICE A DAY Oral; Duration: 90 Active Meclizine HCl 12.5 MG TAKE 1 TABLET BY M OUTH EVERY DAY IN THE MORNING AND TAKE 2 TABLETS AT BEDTIME Oral; Duration: 30 Active Loperamide HCl 2 MG USE 1 OR 2 TABLETS O RALLY USE 15-30 MINUTES BEFORE A MEAL TO PREVENT DIARRHEA, AND USE EVERY 6 HOURS NEEDED FOR DIARRHEA. MAX 8 CAPSULES OVER THE COURSE OF A DAY.; Duration: 30 Active Imodium Advanced Act jaime Immunizations Vaccine Route Administration Date Status Comme nts Influenza Unknown 02/26/2016 Administered Influenza Unknown 04/28/2021 Administered Influenza Unknown 10/25/2023 Refused Problems Problem Type SNOMED Code ICD Code Onset Dates Problem Status W/U Status Risk Notes Problem Screening for malignant neoplasm of colon (226595388) Encounter for screening for malignant neoplasm of colon (Z12.11) Active confirmed Problem History of polyp of colon (situation) (011821577) Personal history of colonic polyps (Z86.010) Active confirmed Problem Irritable bowel syndrome with diarrhea (319628830) Irritable bowel syndrome with diarrhea (K58.0) Active confirmed Problem Screening for malignant neoplasm of rectum (700655290) Encounter for screening for malignant neoplasm of rectum (Z12.12) Active confirmed Problem History of polyp of colon (situation) (694319061) History of colon polyps (Z86.010) Active confirmed Problem Chronic diarrhea (797622951) Chronic diarrhea (K52.9) Active confirmed Problem Diverticulosis of colon (280489149) Diverticulosis of colon (K57.30) Active confirmed Encounters Encounter Location Date Provider Diagnosis [facility] [address] [place] [address] 05/07/2025 Tariq Sethi Plan Of Treatment Pending Test Test Name Order Date LIVER PROFILE 01/25/2022 CRP 01/25/2022 CBC w DIFF 01/25/2022 SED RATE (ESR) 01/25/2022 CELIAC PANEL #10 01/25/2022 STOOL WBC 01/25/2022 C DIFFICILE RFLX PCR 01/25/2022 CALPROTECTIN, STOOL 01/25/2022 Giardia Ag Stool EIA 01/25/2022 Stool Culture 01/25/2022 Ova and Parasite 01/25/2022 Future Test Test Name Order Date COLONOSCOPY 08/12/2016 COLONOSCOPY 01/25/2022 Next Appt Details Provider Name:Tariq Sethi , 09/03/2025 03:00:00 PM, [address], [address], [place], [address], Insurance Providers Payer Name Payer Address Payer Phone Subscriber Number Group Number Insured Name Patient Relationship to Insured Coverage Start Date Coverage End Date [facility] [address] [address] [place] [phone] [id number] LORA FELIPE Self - patient is the insured Medical (General) History Medical History History ICD Code Denies [place],DM,CVA,Lung disease,renal dise ase Kidney stones Some cognitive delays since --sister, Abeba Richardson, is the legal guardian Colonoscopy 10/2016 with a small tubular adenoma removed COVID end of 11/2021 with some associated diarrhea Colonoscopy 01/2022 negative for polyps, IBD, and microscopic colitisi Negative laboratories for celiac disease in 2021 IBS with postprandial diarrhea Surgical History Surgery Date(Month/Year)
== END 2025-06-24 15:35 | disposition home or self-care (01) ==
LOC: HO.HSMS 14:07
PROVIDERS: PCP Nurse Practitioner Family; Visit Provider Physician Assistant Medical
DX: G47.19 Other hypersomnia (principal); G47.33 Obstructive sleep apnea (adult) (pediatric); Z99.89 Dependence on other enabling machines and devices; R25.2 Cramp and spasm; R41.89 Other symptoms and signs involving cognitive functions and awareness; R06.83 Snoring; G47.10 Hypersomnia, unspecified
CPT/HCPCS: 99214

== ENCOUNTER → 2025-06-24 14:06 | Outpatient (BNVA) | payer MEDICARE, SELFPAY | PROVIDERS: PCP Nurse Practitioner Family; Visit Provider Physician Assistant Medical | DX: R41.89 Other symptoms and signs involving cognitive functions and awareness (principal); G47.19 Other hypersomnia; G47.33 Obstructive sleep apnea (adult) (pediatric); G47.10 Hypersomnia, unspecified; R06.83 Snoring; R25.2 Cramp and spasm; Z99.89 Dependence on other enabling machines and devices | CPT/HCPCS: 99212 ==

== ENCOUNTER 2025-07-05 14:06 | Emergency (ER) | payer MEDICARE, OTHER, SELFPAY ==
[2025-07-05 14:21] VITALS: BP 105/52; BP 110/62; PULSE 67; PULSE 79; RESP 18; TEMP 36.6; O2SAT 95; O2SAT 96; BMI 24.2
--- NOTE | 2025-07-05 14:29 | ED_ITS ---
HPI - Allergic Reaction General Chief complaint: Allergic Reaction Stated complaint: ALLERGIC REACTION, Time Seen by Provider: 07/05/25 14:19 History of Present Illness HPI narrative: Patient is a 59-year-old male from [employer]. Patient was outside bringing in cards when he was stung by a bee to the ring finger of his right hand. Patient was given an EpiPen and EMS gave him 25 of Benadryl p.o.. Patient has no distress. No chest pain or diaphoresis. No fever no chills. From work. Related Data Home Medications ?Medication ?Instructions ?Recorded ?Confirmed buspirone 15 mg tablet 15 mg PO BID 05/23/23 diphenoxylate-atropine 2.5 1 tab PO BID PRN 05/23/23 0 04/17/25 mg-0.025 mg tablet hydroxyzine HCl 50 mg tablet 50 mg PO BID 05/23/23 escitalopram oxalate 20 mg tablet 20 mg PO DAILY 11/0504/17/25 cetirizine 10 mg tablet 10 mg PO DAILY 09/19/2403/29 sertraline 100 mg tablet (Zoloft) 100 mg PO DAILY 10/2604/17/25 Previous Rx's ?Medication ?Instructions ?Recorded cephalexin 500 mg capsule 500 mg PO Q12H 5 days #10 ca ps 01/02/25 epinephrine 0.3 mg/0.3 mL 0.3 mg (0.3 mL) IM Q4H PRN 0 02/24/25 injection, auto-injector (EpiPen) anaphylaxis #2 ea magnesium oxide 400 mg PO DAILY #30 tabs 02/19 meclizine 25 mg tablet 25 mg PO BID PRN dizziness o r 05/14/25 vertigo 12 days #24 tabs diphenhydramine HCl 25 mg capsule 25 mg PO Q8H 5 days #15 caps 07/05/25 (Benadryl) epinephrine 0.3 mg/0.3 mL 0.3 mg (0.3 mL) IM ONCE PRN 07/05/25 injection, auto-injector (EpiPen) extreme reaction #1 ea famotidine 20 mg tablet (Pepcid) 20 mg PO BID 5 days # 10 tabs 07/05/25 prednisone 20 mg tablet 40 mg (2 x 20 mg) PO DAILY # 10 tabs 07/05/25 Allergies Allergy/AdvReac Type Severity Reaction Status Date / Time almond Allergy Mild Unknown Verified 07/05/25 14:23 apple Allergy Mild Unknown Verified 07/05/25 14:23 birch Allergy Mild Unknown Verified 07/05/25 14:23 arechiga Allergy Mild Unknown Verified 07/05/25 14:23 hazelnut Allergy Mild Unknown Verified 07/05/25 14:23 oak Allergy Mild Unknown Verified 07/05/25 14:23 peach Allergy Mild Unknown Verified 07/05/25 14:23 Seasonal Allergies Allergy Mild Runny Nose Verified 07/05/25 14:23 willow Allergy Mild Unknown Verified 07/05/25 14:23 beech Allergy Mild Unknown Uncoded 04/17/25 15:19 cottonwood Allergy Mild Unknown Uncoded 04/17/25 15:19 elm Allergy Mild Unknown Uncoded 04/17/25 15:19 hickory/pecan tree Allergy Mild Unknown Uncoded 04/17/25 15:19 Malinda Grass ([place] blue) Allergy Mild Unknown Uncoded 04/17/25 15:19 (G8) IGE maple (box elder) Allergy Mild Unknown Uncoded 04/17/25 15:19 meadow fescue (G4) IGE Allergy Mild Unknown Uncoded 04/17/25 15:19 Peanut (F13) IGE Allergy Mild Unknown Uncoded 04/17/25 15:19 Pear (F94) IGE Allergy Mild Unknown Uncoded 04/17/25 15:19 red top grass Allergy Mild Unknown Uncoded 04/17/25 15:19 walnut tree Allergy Mild Unknown Uncoded 04/17/25 15:19 lactose intollerance AdvReac Severe Diarreha Uncoded 04/17/25 15:19 Review of Systems Review of Systems: Positive bee sting Yes all other systems are reviewed and are negative PMFSH Past Medical History Attestation statement: The following information was validated with the patient. Medical History Cellulitis of skin Hypersomnia Snoring Cognitive impairment Intellectual disability History of COVID-19 Renal calculi Surgical History Hx of lithotripsy Hx of cystoscopy H/O colonoscopy (~02/21/22) Social History Social History Alcohol intake: never Patient Tobacco Use Status: Never used Tobacco Advance Directives: No Advance Directives Information Provided: No Cognitive needs: No Hearing needs: No Vision needs: No Physical Exam ED Exam Exam: Appearance: Alert. Oriented X3. No acute distress. Eyes: Pupils equal, round and reactive to light. ENT: Pharynx normal. Neck: Normal inspection. Neck supple. No lymph nodes noted. No crepitus CVS: Normal heart rate and rhythm. Pulses normal. Normal S1 and S2 Respiratory: No respiratory distress. Breath sounds normal. No Wheezing. No rales Abdomen: Soft and nontender. No rigidity. No distention. good BS x4 Skin: Skin warm and dry. Normal skin color. Normal skin turgor. Extremities: The bee sting on the palmar surface of the right ring finger proximally has gone away. There is no redness there there is good range of motion of the fingers. Good capillary refill sensation intact pulses 2+ at radial. Skin intact. Neuro: Oriented X 3. No motor deficit. No sensory deficit. Moving all extermit ies. No slurred speech Vital Signs: Vital Signs - 24 hr 07/05/25 14:21 Temperature 97.9 F Pulse Rate 67 Respiratory Rate 18 Blood Pressure 105/52 L Pulse Oximetry 96 Oxygen Delivery Method Room Air BMI result Body Mass Index 24.2 Medications Administered Discontinued Medications Generic Name Dose Route Start Last Admin Trade Name Freq PRN Reason Stop Dose Admin Prednisone 40 mg 07/05/25 14:34 07/05/25 14:46 Prednisone 20 Mg Tablet PO 07/05/25 14:35 40 mg ONCE ONE Administration Medical Decision Making Medical Decision Making [facility] Narrative: Got epinephrine prior to arrival got Benadryl prior to arrival but patient looks great. Lungs are clear. O2 sat is normal. There is no signs of allergic reaction. Will observe patient for 2 hours. Give a dose of steroid as patient was already given EpiPen. Close follow-up advised. Discharge Plan Discharge Clinical Impression: Allergic reaction Instructions: General Allergic Reaction (ED) Prescriptions: New diphenhydramine HCl [Benadryl] 25 mg capsule 25 mg PO Q8H 5 Days Qty: 15 0RF prednisone 20 mg tablet 40 mg PO DAILY Qty: 10 0RF famotidine [Pepcid] 20 mg tablet 20 mg PO BID 5 Days Qty: 10 0RF epinephrine [EpiPen] 0.3 mg/0.3 mL auto-injector 0.3 mg IM ONCE PRN (Reason: extreme reaction) Qty: 1 0RF Rx Instructions: for 2 doses No Action epinephrine [EpiPen] 0.3 mg/0.3 mL auto-injector 0.3 mg IM Q4H PRN (Reason: anaphylaxis) Qty: 2 0RF magnesium oxide 400 mg magnesium tablet 400 mg PO DAILY Qty: 30 3RF meclizine 25 mg tablet 25 mg PO BID PRN (Reason: dizziness or vertigo) 12 Days Qty: 24 0RF escitalopram oxalate 20 mg tablet 20 mg PO DAILY sertraline [Zoloft] 100 mg tablet 100 mg PO DAILY diphenoxylate-atropine 2.5-0.025 mg tablet 1 tab PO BID PRN buspirone 15 mg tablet 15 mg PO BID hydroxyzine HCl 50 mg tablet 50 mg PO BID cetirizine 10 mg tablet 10 mg PO DAILY cephalexin 500 mg capsule 500 mg PO Q12H 5 Days Qty: 10 0RF Print Language: [place]
--- OUTSIDE RECORDS SUMMARY | 2025-07-05 14:42 | XMS_ITS ---
Author Name Tonya Evans NP Address [address] [place] [address] Phone [phone] Organization [facility] Care Team Providers Care Lapping Machine Set Up Operator Name Role Phone Tonya Evans Unavailable [phone] Reason for Referral Not Available Allergies, adverse [...] he never had an allergy. I recommended principal mechanical engineer apt for allergy study, I am not [...] they most likely to go back?Please call [facility] if you have a change in condition, Blood pressure > 170/90Fall, any unusual symptoms or have any medical questions! Encounters Encounters Type Facility Date of Service Diagnosis/Co mplaint New patient, 30-44min 1 stable chronic or 2 minor; add modifier 95 for video, modifier 93 for [facility], ([place]) 12/23/2023 Generalized anxiety disorderUnsp lack of expected normal physiol dev in childhoodDizziness and giddinessNoninfective gastroenteritis and colitis, unspecified New patient, 30-44min 1 stable chronic or 2 minor; add modifier 95 for video, modifier 93 for [facility], ([place]) 12/23/2023 New patient, 30-44min 1 stable chronic or 2 minor; add modifier 95 for video, modifier 93 for [facility], ([place] 12/23/2023 New patient, 30-44min 1 stable chronic or 2 minor; add modifier 95 for video, modifier 93 for [facility], ([place] 12/23/2023 New patient, 30-44min 1 stable chronic or 2 minor; add modifier 95 for video, modifier 93 for [facility], ([place] 12/23/2023 New patient, 30-44min 1 stable chronic or 2 minor; add modifier 95 for video, modifier 93 for [facility], ([place]) 12/23/2023 New patient, 30-44min 1 stable chronic or 2 minor; add modifier 95 for video, modifier 93 for phone [facility], ([place]) 12/23/2023 New patient, 30-44min 1 stable chronic or 2 minor; add modifier 95 for video, modifier 93 for phone [facility], ([place] 12/23/2023 No Data Available [facility] ([place]) 04/03/2024 Allergy, unspecified, subsequent encounterOther problems related to medical facilities and other health care No Data Available [facility], ([place] 04/03/2024 No Data Available [facility] ([place]) 04/03/2024 Vital Signs Date of Collection Vitals 2023-12-23 13:30:38 Height - 177.8 cmWei ght - 72.58 kgBody Mass Index (BMI) - 22.96 kg/m2Pain Scale - 0.0 {score} Social History Sex Male History of Procedures Procedures Service Procedure code Service date Servicing provider Phone# New patient, 30-44min 1 stable chronic or 2 minor; add modifier 95 for video, modifier 93 for phone [id number] 2023-12-23 No Data Available No Data Available [...] No Data Availa ble No Data Available [id number] 2024-04-03 No Data Available No Data Available [...] he never had an allergy. I recommended principal mechanical engineer apt for allergy study, I am not convinced that he was having an allergic reaction cg is also concerned that pt may not be able to administer the epipen due to decreased cognitionMonthly follow up calls with ptCONTINGENCY PLANWhy was the member in the hospital or ER most recently? Why are they most likely to go back?Please call [facility] if you have a change in [...]
--- OUTSIDE RECORDS SUMMARY | 2025-07-05 14:43 | XMS_ITS | Patient Health Record ---
Author Organization [facility] Address [address] [place] [address] Care Team Providers Care Religious Ritual Slaughterer Name Role Phone LISA GEE Primary Care Provider Tariq Ramirez Unavailable [phone] Allergies No Known Allergies Reason For Referral [...] Problem Screening for malignant neoplasm of colon (412402733) Encounter for screening for malignant neoplasm of colon (Z12.11) Active confirmed Problem History of polyp of colon (situation) (007326631) Personal history of colonic polyps (Z86.010) Active confirmed Problem Irritable bowel syndrome with diarrhea (571569258) Irritable bowel syndrome with diarrhea (K58.0) Active confirmed Problem Screening for malignant neoplasm of rectum (772052844) Encounter for screening for malignant neoplasm of rectum (Z12.12) Active confirmed Problem History of polyp of colon (situation) (111220112) History of colon polyps (Z86.010) Active confirmed Problem Chronic diarrhea (391605281) Chronic diarrhea (K52.9) Active confirmed Problem Diverticulosis of colon (497686595) Diverticulosis of colon (K57.30) Active confirmed Encounters Encounter Location Date Provider Diagnosis [facility] [address] [place] [address] 05/07/2025 Tariq Sethi Plan Of Treatment Pending [...] Name:Tariq Sethi , 09/03/2025 03:00:00 PM, [address], [address], [place], [address], Insurance Providers Payer Name Payer Address Payer Phone Subscriber Number Group Number Insured Name Patient Relationship to Insured Coverage Start Date Coverage End Date [facility] [address] [address] [place] [phone] [id number] LORA FELIPE Self - patient is the insured Medical (General) History Medical History History ICD Code Denies CT,DM,CVA,Lung disease,renal dise ase Kidney stones Some cognitive delays since --sister, Abeba Richardson, is the legal guardian Colonoscopy 10/2016 with a small tubular adenoma removed COVID end of 11/2021 with some associated diarrhea Colonoscopy 01/2022 negative for polyps, IBD, and microscopic colitisi Negative laboratories for celiac disease in 2021 IBS with postprandial diarrhea Surgical History Surgery Date(Month/Year)
[2025-07-05 16:50] VITALS: BP 114/57; PULSE 85; RESP 18; TEMP 36.8; O2SAT 97
[2025-07-05 16:51] VITALS: BP 114/57; PULSE 85; RESP 18; TEMP 36.8; O2SAT 97
== END 2025-07-05 17:10 | disposition home or self-care (01) ==
PROVIDERS: Emergency Provider Emergency Medicine Emergency Medical Services
DX: T63.441A Toxic effect of venom of bees, accidental (unintentional), initial encounter (principal); Y92.481 Parking lot as the place of occurrence of the external cause; Z91.010 Allergy to peanuts; Z91.018 Allergy to other foods; Z91.048 Other nonmedicinal substance allergy status
CPT/HCPCS: 99282; 99283